=== PATIENT | male | born 1940 | race Caucasian/White ===

== ENCOUNTER 2016-10-12 11:04 | Outpatient (CLI) | payer MEDICARE | END 2016-10-12 11:05 | disposition home or self-care (01) | DX: I10 Essential (primary) hypertension (principal); E78.5 Hyperlipidemia, unspecified; I25.10 Atherosclerotic heart disease of native coronary artery without angina pectoris ==

== ENCOUNTER 2017-01-08 12:10 | Outpatient (CLI) | payer MEDICARE | END 2017-01-08 12:11 | disposition home or self-care (01) | DX: M17.0 Bilateral primary osteoarthritis of knee (principal) ==

== ENCOUNTER 2017-06-13 16:53 | Emergency (ER) | payer MEDICARE ==
--- NOTE | 2017-06-13 19:10 | ED Physician Documentation ---
PD HPI LOWER EXT INJURY - Stated complaint Stated Complaint: LT FOOT SWELLING/REDNESS - Chief complaint Chief Complaint: Wound - History obtained from History obtained from: Patient - History of Present Illness PD HPI LOW EXT INJURY LOCATION: Left, Toe (middle toe swelling and redness for a week or so.) Type of injury: Other (he has had thick skin/callous in the area and had it trimmed recently (callous cut back by [employer]) and then developed redness and swelling. No drainage.). No: Fall, Twist Timing - onset: How many weeks ago (1) Timing - duration: Weeks (1) Timing - details: Gradual onset, Still present (seen last week for the redness/ swelling and was Rx Clindamycin. He has not noted any improvement in the toe and today notes it more red and swollen. Has some baseline numbness in toes due to neuropathy.) Worsened by: Palpating Associated symptoms: Numbness (baseline due to neuropathy), Swelling, Discolored (red). No: Weakness Similar symptoms before: Diagnosis (has had some mild infections in the past and usually gets better with soaks and ointment.) Recently seen: Clinic (today seen in follow up and referred to ER.) Review of Systems Constitutional: denies: Fever, Chills GI: denies: Nausea, Vomiting Neurologic: denies: Generalized weakness, Near syncope PD PAST MEDICAL HISTORY - Past Medical History Past Medical History: Yes Respiratory: COPD Neuro: Peripheral neuropathy Endocrine/Autoimmune: Type 2 diabetes - Past Surgical History Past Surgical History: Yes Ortho: Carpal Tunnel surgery HEENT: Cataracts - Present Medications Home Medications: Ambulatory Orders Medication Instructions Recorded Confirmed Allopurinol [Zyloprim] 300 mg PO DAILY 03/09/16 06/13/17 Atenolol 12.5 mg PO DAILY 03/09/16 06/13/17 Cholecalciferol [Vitamin D3] 4,600 unit PO DAILY 03/09/16 06/13/17 Gabapentin 300 mg PO DAILY 03/09/16 06/13/17 Ibuprofen 400 mg PO DAILY 03/09/16 06/13/17 Insulin Aspart [NovoLOG] 5 unit SUBQ DAILYWM PRN 03/09/16 06/13/17 Lisinopril [Zestril] 20 mg PO DAILY 03/09/16 06/13/17 hydroCHLOROthiazide [Hydrodiuril] 25 mg PO DAILY 03/09/16 06/13/17 Doxycycline Hyclate 100 mg PO BID #14 tablet 06/13/17 Mupirocin 1 applic TP TID #15 oint...g. 06/13/17 - Allergies Allergies/Adverse Reactions: Allergies Allergy/AdvReac Type Severity Reaction Status Date / Time Sulfa (Sulfonamide Allergy Anaphylaxis Verified 06/13/17 17:10 Antibiotics) - Social History Does the pt smoke?: Yes Smoking Status: Current every day smoker Does the pt drink ETOH?: No Does the pt have substance abuse?: Yes Substance Use and Type: Marijuana - Immunizations Immunizations are current?: Yes - POLST Patient has POLST: No PD ED PE NORMAL - Vitals Vital signs reviewed: Yes - General General: Alert and oriented X 3, No acute distress, Well developed/nourished - Neck Neck: Supple, no meningeal sign, No adenopathy - Cardiac Cardiac: RRR, No murmur - Respiratory Respiratory: Clear bilaterally - Derm Derm: Normal color, Warm and dry - Extremities Extremities: Other (left foot with redness and swelling of middle toe, with superficial ulderation dorsum. No active drainage. No fluctuance. There is callous thickening plantar tip. No noted fluid under it. Bedside U/S attempted for toe and did not show obvious fluid collection.) Results - Vitals Vitals: Vital Signs - 24 hr 06/13/17 06/13/17 17:05 19:34 Temperature 36.7 C 36.9 C Heart Rate 90 77 Respiratory 20 18 Rate Blood Pressure 122/60 120/67 O2 Saturation 97 96 Oxygen O2 Source Room air - Labs Labs: Laboratory Tests 06/13/17 18:47 POC Whole Bld Glucose 151 H - Rads (name of study) toes Radiology: Prelim report reviewed, EMP read contemporaneously (no acute process noted. ) PD MEDICAL DECISION MAKING - ED course Complexity details: reviewed results, considered differential (scalpel tip used at nailbed corner and no fluid produced. Bedside U/S did not show obvious fluid in toe. No obvious abscess. Has been on Clinda without improvement. Will have him do soaks, topical mupirocin, and change to Doxycycline. He does not seem septic. ), d/w patient Departure - Departure Disposition: 01 Home, Self Care Clinical Impression: Toe infection Condition: Stable Record reviewed to determine appropriate education?: Yes Instructions: ED Staph Infec Abx Tx Only Follow-Up: Neeta Almonte ARNP [Primary Care Provider] - Prescriptions: Doxycycline Hyclate 100 mg PO BID #14 tablet Mupirocin 1 applic TP TID #15 oint...g. Comments: Soak foot/toe in warm water 2-3 times daily then apply mupirocin antibiotic. Stop the Clindamycin and change to Doxycycline twice daily for a week. Recheck with PMD in about 3-4 days. Discharge Date/Time: 06/13/17 20:17
[2017-06-13 19:35] VITALS: BP 120/67
[2017-06-13] MEDS ORDERED: MUPIROCIN 2% OINT 1 GM TOP STA (19:59)
[2017-06-13] MEDS ORDERED: DOXYCYCLINE 100 MG TABLET PO STA (19:59)
--- NOTE | 2017-06-13 20:03 | XRAY Preliminary Report ---
Exam: XR Foot 3 View RT IMPRESSION: Soft tissue swelling. [facility] SITE ID: [id number]
--- NOTE | 2017-06-13 20:06 | XRAY Report ---
EXAM: RIGHT FOOT RADIOGRAPHY EXAM DATE: 06/13/2017 07:18 PM. CLINICAL HISTORY: R 2nd toe infection, poss. FB?. COMPARISON: None. TECHNIQUE: 3 views. FINDINGS: Bones: Moderate plantar and posterior calcaneal spurs. No definite fracture or other bone lesion. Joints: Normal. No subluxations. Soft Tissues: Soft tissue swelling. No definite foreign body or soft tissue gas. IMPRESSION: Soft tissue swelling. [facility] Referring Provider Line: [phone] SITE ID: [id number]
[2017-06-13] MEDS ORDERED: DOXYCYCLINE 100 MG TABLET PO ONE (20:10)
[2017-06-13] MEDS ORDERED: MUPIROCIN 2% OINT 1 GM ONE (20:10)
== END 2017-06-13 20:17 | disposition home or self-care (01) ==
LOC: ED 16:53
DX: L08.89 Other specified local infections of the skin and subcutaneous tissue (principal); E11.42 Type 2 diabetes mellitus with diabetic polyneuropathy; F17.200 Nicotine dependence, unspecified, uncomplicated
CPT/HCPCS: 73630; 99283; 99284; A9270

== ENCOUNTER 2017-07-02 11:13 | Outpatient (CLI) | payer MEDICARE | END 2017-07-02 11:14 | disposition home or self-care (01) | LOC: DI 11:13 | PROVIDERS: ATTEND Internal Medicine Cardiovascular Disease | DX: I35.0 Nonrheumatic aortic (valve) stenosis (principal); I35.1 Nonrheumatic aortic (valve) insufficiency; I77.810 Thoracic aortic ectasia | CPT/HCPCS: 93306 ==

== ENCOUNTER 2017-08-18 19:10 | Emergency (ER) | payer MEDICARE ==
--- NOTE | 2017-08-18 20:56 | ED Physician Documentation ---
PD HPI SKIN - Stated complaint Stated Complaint: FEVER/GOUT FLARE - Chief complaint Chief Complaint: General - History obtained from History obtained from: Patient - History of Present Illness Timing - onset: Today Timing - duration: Days (1) Timing - details: Abrupt onset, Still present (he noted onset of right foot pain today, worsening into evening. He says it feels similar to prior gout episodes. He did also feel feverish earlier today and took temp at home of 101 degrees. Denies URI symptoms. Did have some urgency with urination the past couple of days. No rash nor sores.) Location: RLE (right foot pain, but also right lower leg redness with some swelling that is more than usual basseline swelling.) Quality / character: Painful, Discolored (red), Swelling Associated symptoms: Fever (today), Myalgias, Joint pain (right dorsum foot) Contributing factors: No: Recent illness Similar symptoms before: Diagnosis (the foot pain is typical of his gout, per patient. Has not had the right leg redness previously.) Recently seen: Not recently seen Review of Systems Constitutional: reports: Fever. denies: Chills Nose: reports: Congestion (long chronic nasal congestion from allergies). denies: Rhinorrhea / runny nose Throat: denies: Sore throat Cardiac: denies: Chest pain / pressure Respiratory: denies: Dyspnea, Cough, Wheezing GI: denies: Nausea, Vomiting : reports: Hesitancy (just the past week). denies: Dysuria, Frequency Skin: reports: Rash (redness with warmth on dorsum right foot). denies: Lesions Musculoskeletal: reports: Extremity swelling (chronic edema both lower legs and ankles.) PD PAST MEDICAL HISTORY - Past Medical History Cardiovascular: Hypertension, Other Respiratory: COPD Neuro: Peripheral neuropathy Endocrine/Autoimmune: Type 2 diabetes GI: None : None Psych: None Musculoskeletal: Osteoarthritis, Gout, Chronic back pain - Past Surgical History Past Surgical History: Yes General: Other Ortho: Carpal Tunnel surgery Cardiovascular: Cardiac catheterization HEENT: Cataracts - Present Medications Home Medications: Ambulatory Orders Medication Instructions Recorded Confirmed Allopurinol [Zyloprim] 300 mg PO DAILY 03/09/16 08/18/17 Atenolol 12.5 mg PO DAILY 03/09/16 08/18/17 Cholecalciferol [Vitamin D3] 4,600 unit PO DAILY 03/09/16 08/18/17 Gabapentin 300 mg PO DAILY 03/09/16 08/18/17 Ibuprofen 400 mg PO DAILY 03/09/16 08/18/17 Insulin Aspart [NovoLOG] 5 unit SUBQ DAILYWM PRN 03/09/16 08/18/17 Lisinopril [Zestril] 20 mg PO DAILY 03/09/16 08/18/17 hydroCHLOROthiazide [Hydrodiuril] 25 mg PO DAILY 03/09/16 08/18/17 Mupirocin 1 applic TP DAILY 06/29/17 08/18/17 Cephalexin [Keflex] 500 mg PO QID #24 capsule 08/18/17 Ibuprofen [Motrin] 600 mg PO BID #15 tab 08/18/17 Ondansetron Odt [Zofran] 4 mg TL Q6H PRN #15 tablet 08/18/17 Oxycodone HCl/Acetaminophen 1 each PO Q6H PRN #15 tablet 08/18/17 [Percocet 5-325 mg Tablet] - Allergies Allergies/Adverse Reactions: Allergies Allergy/AdvReac Type Severity Reaction Status Date / Time Sulfa (Sulfonamide Allergy Anaphylaxis Verified 08/18/17 19:18 Antibiotics) - Social History Does the pt smoke?: Yes Smoking Status: Former smoker Does the pt drink ETOH?: No Does the pt have substance abuse?: Yes - Family History Family history: reports: Non contributory - Immunizations Immunizations are current?: Yes - POLST Patient has POLST: No PD ED PE NORMAL - Vitals Vital signs reviewed: Yes - General General: Alert and oriented X 3, No acute distress, Well developed/nourished - HEENT HEENT: Pharynx benign - Neck Neck: Supple, no meningeal sign, No adenopathy - Cardiac Cardiac: RRR, No murmur - Respiratory Respiratory: Clear bilaterally - Abdomen Abdomen: Soft, Non tender - Male Male : Deferred - Rectal Rectal: Deferred - Back Back: No CVA TTP, No spinal TTP - Derm Derm: Warm and dry, Other (right anterior lower leg with edema, tenderness, and redness/warmth. No pustules nor ulcerations. No discharge. Right foot dorsolaterally with redness and tenderness, very tender to light touch more c/w gout. Great toe not tender. 2nd toe with bandage and small ulceration and callous to it. No signs of infection there though. ) - Neuro Neuro: Alert and oriented X 3, No motor deficit, Normal speech Results - Vitals Vitals: Vital Signs - 24 hr 08/18/17 08/18/17 08/18/17 19:15 22:48 23:55 Temperature 37.9 C H 37.5 C 37.5 C Heart Rate 84 84 80 Respiratory 18 20 20 Rate Blood Pressure 133/57 H 119/59 L 109/55 L O2 Saturation 100 94 97 Oxygen O2 Source Room air - Labs Labs: Laboratory Tests 08/18/17 08/18/17 08/18/17 21:40 21:40 21:40 WBC 15.9 H RBC 4.32 L Hgb 13.5 L Hct 41.8 L MCV 96.8 H MCH 31.2 H MCHC 32.3 RDW 15.9 H Plt Count 160 MPV 8.3 Neut # 12.8 H Lymph # 2.0 Reynolds # 1.0 Eos # 0.0 Baso # 0.0 Absolute Nucleated RBC 0.00 Nucleated RBC % 0.0 ESR 13 Sodium 135 Potassium 4.0 Chloride 102 Carbon Dioxide 26 Anion Gap 7.0 BUN 39 H Creatinine 1.3 H Estimated GFR (MDRD) 54 L Glucose 122 H Calcium 8.6 Magnesium 1.8 Total Bilirubin 0.8 AST 19 ALT 19 Alkaline Phosphatase 62 Total Protein 7.0 Albumin 3.8 Globulin 3.2 Albumin/Globulin Ratio 1.2 Lipase 34 Urine Color Urine Clarity Urine pH Ur Specific [place] Urine Protein Urine Glucose (UA) Urine Ketones Urine Occult Blood Urine Nitrite Urine Bilirubin Urine Urobilinogen Ur Leukocyte Esterase Ur Microscopic Review Urine Culture Comments 08/18/17 22:00 WBC RBC Hgb Hct MCV MCH MCHC RDW Plt Count MPV Neut # Lymph # [place] # Eos # Baso # Absolute Nucleated RBC Nucleated RBC % ESR Sodium Potassium Chloride Carbon Dioxide Anion Gap BUN Creatinine Estimated GFR (MDRD) Glucose Calcium Magnesium Total Bilirubin AST ALT Alkaline Phosphatase Total Protein Albumin Globulin Albumin/Globulin Ratio Lipase Urine Color YELLOW Urine Clarity CLEAR Urine pH 6.0 Ur Specific [place] 1.020 Urine Protein NEGATIVE Urine Glucose (UA) NEGATIVE Urine Ketones NEGATIVE Urine Occult Blood NEGATIVE Urine Nitrite NEGATIVE Urine Bilirubin NEGATIVE Urine Urobilinogen 0.2 (NORMAL) Ur Leukocyte Esterase NEGATIVE Ur Microscopic Review NOT INDICATED Urine Culture Comments NOT INDICATED PD MEDICAL DECISION MAKING - ED course Complexity details: reviewed results, considered differential (he may be having gout in foot, but his lower leg looks like cellulitis and he has elevated WBC and reported fever earlier. No other obvious source for infection. He does not seem septic. Will try outpatient treatment for it, with caution to him to return if worsening or if not improving within 1-2 days. ), d/w patient Departure - Departure Disposition: 01 Home, Self Care Clinical Impression: Foot pain, right, Cellulitis of lower leg Gout flare Qualifiers: Gout site: ankle Gout etiology: idiopathic Laterality: right Qualified Code(s) : M10.071 - Idiopathic gout, right ankle and foot Condition: Stable Record reviewed to determine appropriate education?: Yes Instructions: ED Infec Skin Cellulitis Follow-Up: Jaida Telles ARNP [Primary Care Provider] - Prescriptions: Cephalexin [Keflex] 500 mg PO QID #24 capsule Ibuprofen [Motrin] 600 mg PO BID #15 tab Ondansetron Odt [Zofran] 4 mg TL Q6H PRN #15 tablet PRN Reason: Nausea / Vomiting Oxycodone HCl/Acetaminophen [Percocet 5-325 mg Tablet] 1 each PO Q6H PRN #15 tablet PRN Reason: Pain Comments: The foot and ankle pain may likely be a gout flareup. However there is signs of infection on the lower leg skin with the redness and swelling and I presume that associates with your fever earlier and the elevated white count. We will go with antibiotics cephalexin 4 times a day for the next 5 or 6 days for that. Use ibuprofen twice daily and add oxycodone or Tylenol if needed for pains. Ondansetron if needed for nausea. Recheck with your primary care in 2-3 days return sooner if worsening symptoms. Discharge Date/Time: 08/18/17 23:58
[2017-08-18] MEDS ORDERED: HYDROcod/ACETAM 5/325 MG TABLET PO STA (21:23)
[2017-08-18] MEDS ORDERED: HYDROcod/ACETAM 5/325 MG TABLET ONE (21:34)
[2017-08-18] MEDS ORDERED: FUROSEMIDE 20 MG TABLET PO STA (21:41)
[2017-08-18 21:51] LABS: BASOPHILS % (AUTO) 0.3 %; EOSINOPHILS % (AUTO) 0.3 %; HCT - HEMATOCRIT 41.8 % (42.0-52.0); HGB - HEMOGLOBIN 13.5 g/dL (14.0-18.0); LYMPHOCYTES % (AUTO) 12.9 %; MEAN CORPUSCULAR HEMOGLOBIN 31.2 pg (27.0-31.0); MEAN CORPUSCULAR HGB CONC 32.3 g/dL (32.0-36.0); MEAN CORPUSCULAR VOLUME 96.8 fL (80.0-94.0); MEAN PLATELET VOLUME 8.3 fL (7.4-11.4); MONOCYTES % (AUTO) 6.2 %; NEUTROPHILS # (AUTO) 12.8 10^3/uL (1.5-6.6); NEUTROPHILS % (AUTO) 80.3 %; RED BLOOD COUNT 4.32 10^6/uL (4.70-6.10); RED CELL DISTRIBUTION WIDTH 15.9 % (12.0-15.0); UNCORRECTED WHITE BLOOD COUNT 15.9 x10^3/uL; WHITE BLOOD COUNT 15.9 x10^3/uL (4.8-10.8)
[2017-08-18] MEDS ORDERED: FUROSEMIDE 20 MG TABLET ONE (21:54)
[2017-08-18 22:03] LABS: ALBUMIN/GLOBULIN RATIO 1.2 (1.0-2.2); BILIRUBIN,TOTAL 0.8 mg/dL (0.2-1.0); CALCIUM 8.6 mg/dL (8.5-10.3); CREATININE 1.3 mg/dL (0.6-1.2); MAGNESIUM 1.8 mg/dL (1.7-2.8)
[2017-08-18 22:12] LABS: BILIRUBIN,URINE NEGATIVE (NEGATIVE)
[2017-08-18 22:14] LABS: UA CHARGE (STRIP ONLY) YES; UR CULTURE IF IND NOT INDICATED
[2017-08-18] MEDS ORDERED: cefTRIAXone 1 GM VIAL IM STA (22:14)
[2017-08-18] MEDS ORDERED: cefTRIAXone 1 GM VIAL ONE (22:41)
[2017-08-18] MEDS ORDERED: LIDOCAINE 1% 2 ML VIAL ONE (22:41)
[2017-08-18] MEDS ORDERED: ONDANSETRON ODT 4 MG TABLET TL STA (22:56)
[2017-08-18] MEDS ORDERED: oxyCODONE/ACET 5/325 Prepack 4 PO STA (22:56)
[2017-08-18] MEDS ORDERED: NAPROXEN 250 MG TABLET PO STA (22:56)
[2017-08-18] MEDS ORDERED: NAPROXEN 250 MG TABLET PO ONE (23:29)
[2017-08-18] MEDS ORDERED: ONDANSETRON ODT 4 MG TABLET ONE (23:29)
[2017-08-18] MEDS ORDERED: oxyCODONE/ACET 5/325 Prepack 4 PO ONE (23:30)
[2017-08-18 23:59] VITALS: BP 109/55
== END 2017-08-18 23:58 | disposition home or self-care (01) ==
LOC: ED 19:10
DX: L03.115 Cellulitis of right lower limb (principal); M10.071 Idiopathic gout, right ankle and foot; I10 Essential (primary) hypertension; J44.9 Chronic obstructive pulmonary disease, unspecified; E11.42 Type 2 diabetes mellitus with diabetic polyneuropathy; Z79.4 Long term (current) use of insulin; M19.90 Unspecified osteoarthritis, unspecified site; Z87.891 Personal history of nicotine dependence
CPT/HCPCS: 36415; 80053; 81003; 83690; 83735; 85025; 85651; 87040; 96372; 99283; A9270; Q0162; 81001; 87086

== ENCOUNTER 2017-11-27 08:00 | Outpatient (CLI) | payer MEDICARE ==
[2017-11-27 17:51] LABS: CALCIUM 9.2 mg/dL (8.5-10.3); CREATININE 1.3 mg/dL (0.6-1.2)
== END 2017-11-27 08:01 | disposition home or self-care (01) ==
LOC: LAB.F 08:00
PROVIDERS: ATTEND Internal Medicine Cardiovascular Disease
DX: I10 Essential (primary) hypertension (principal)
CPT/HCPCS: 36415; 80048

== ENCOUNTER 2017-12-20 08:18 | Outpatient (CLI) | payer MEDICARE ==
[2017-12-20 11:11] LABS: BASOPHILS % (AUTO) 0.3 %; EOSINOPHILS # (AUTO) 0.3 10^3/uL (0.0-0.7); EOSINOPHILS % (AUTO) 4.9 %; HGB - HEMOGLOBIN 13.5 g/dL (14.0-18.0); LYMPHOCYTES # (AUTO) 2.4 10^3/uL (1.5-3.5); LYMPHOCYTES % (AUTO) 34.3 %; MEAN CORPUSCULAR HEMOGLOBIN 32.1 pg (27.0-31.0); MEAN CORPUSCULAR HGB CONC 33.2 g/dL (32.0-36.0); MEAN CORPUSCULAR VOLUME 96.7 fL (80.0-94.0); MEAN PLATELET VOLUME 8.5 fL (7.4-11.4); MONOCYTES # (AUTO) 0.6 10^3/uL (0.0-1.0); MONOCYTES % (AUTO) 8.8 %; NEUTROPHILS # (AUTO) 3.6 10^3/uL (1.5-6.6); NEUTROPHILS % (AUTO) 51.7 %; PLT - PLATELET COUNT 147 10^3/uL (130-450); WHITE BLOOD COUNT 6.9 x10^3/uL (4.8-10.8)
[2017-12-20 11:19] LABS: ALBUMIN 3.6 g/dL (3.2-5.5); ALBUMIN/GLOBULIN RATIO 1.2 (1.0-2.2); BILIRUBIN,TOTAL 0.6 mg/dL (0.2-1.0); CALCIUM 8.7 mg/dL (8.5-10.3); CREATININE 1.1 mg/dL (0.6-1.2); TOTAL PROTEIN 6.6 g/dL (6.7-8.2)
== END 2017-12-20 08:19 | disposition home or self-care (01) ==
LOC: LAB.F 08:18
PROVIDERS: ATTEND Internal Medicine
DX: R06.00 Dyspnea, unspecified (principal); K76.0 Fatty (change of) liver, not elsewhere classified; I10 Essential (primary) hypertension; E78.5 Hyperlipidemia, unspecified; M10.9 Gout, unspecified; G62.9 Polyneuropathy, unspecified
CPT/HCPCS: 36415; 80053; 83880; 85025

== ENCOUNTER 2018-10-28 11:29 | Emergency (ER) | payer MEDICARE ==
--- NOTE | 2018-10-28 11:56 | ED Physician Documentation ---
PD HPI SYNCOPE - Stated complaint Stated Complaint: SYNCOPE - Chief complaint Chief Complaint: Neuro - History obtained from History obtained from: Patient, EMS - History of Present Illness Witnessed: Unwitnessed Timing - onset: Today Duration: Unknown Preceding symptoms: Vision changes Contributing factors: Exertion Injury occurred: None Similar symptoms before: No diagnosis Recently seen: Clinic - Additional information Additional information: 78-year-old male with a history of aortic stenosis and diabetes has had a syncopal episode today after sweeping the snow off of his deck. He states that he went out swept the snow off of his deck, went back inside at that point was not feeling ill. Then he is had some dizzy episodes followed by a syncopal episode after dimming of his vision. He states that he has had these episodes when he is just sitting not exerting himself where he will blank out for a while and he is not able to talk. He thinks this may be going on for the past month. He does indicate a history of some claudication which is been progressing over the past 2 years. He has a history of aortic stenosis and on his last visit Dr. Spann indicated to him that it would be assumed that he would need to have work done on this soon. Review of Systems Constitutional: reports: Fatigue. denies: Fever, Chills, Myalgias Eyes: denies: Decreased vision Ears: denies: Ear pain Nose: denies: Rhinorrhea / runny nose, Congestion Throat: denies: Sore throat Cardiac: denies: Chest pain / pressure, Palpitations Respiratory: reports: Dyspnea. denies: Cough GI: denies: Abdominal Pain, Nausea, Vomiting, Constipation, Diarrhea : denies: Dysuria, Frequency Skin: denies: Rash Musculoskeletal: reports: Extremity pain, Extremity swelling. denies: Neck pain, Back pain Neurologic: reports: Generalized weakness. denies: Focal weakness, Numbness PD PAST MEDICAL HISTORY - Past Medical History Cardiovascular: Hypertension, Other Respiratory: COPD Endocrine/Autoimmune: Type 2 diabetes GI: None : None HEENT: Chronic hearing loss Psych: None Musculoskeletal: Osteoarthritis, Gout, Chronic back pain - Past Surgical History Past Surgical History: Yes General: Other Ortho: Carpal Tunnel surgery Cardiovascular: Cardiac catheterization HEENT: Cataracts - Present Medications Home Medications: Ambulatory Orders Medication Instructions Recorded Confirmed Allopurinol [Zyloprim] 300 mg PO DAILY 03/09/16 10/28/18 Cholecalciferol [Vitamin D3] 4,000 unit PO DAILY 03/09/16 10/28/18 Insulin Aspart [NovoLOG] 5 unit SUBQ DAILYWM PRN 03/09/16 02/19/18 Lisinopril [Zestril] 20 mg PO DAILY 03/09/16 10/28/18 RX: Atenolol 2.5 mg PO DAILY 03/09/16 10/28/18 RX: Gabapentin 300 mg PO DAILY 03/09/16 10/28/18 hydroCHLOROthiazide [Hydrodiuril] 25 mg PO DAILY 03/09/16 10/28/18 Oxycodone HCl/Acetaminophen 1 each PO Q6H PRN #15 tablet 08/18/17 02/19/18 [Percocet 5-325 mg Tablet] RX: Ibuprofen [Motrin] 600 mg PO BID #15 tab 08/18/17 10/28/18 RX: Atorvastatin Calcium 40 mg ORAL DAILY 10/28/18 10/28/18 RX: Melatonin 3 mg ORAL 10/28/18 RX: Omeprazole 20 mg ORAL TID 10/28/18 10/28/18 - Allergies Allergies/Adverse Reactions: Allergies Allergy/AdvReac Type Severity Reaction Status Date / Time Sulfa (Sulfonamide Allergy Anaphylaxis Verified 10/28/18 12:09 Antibiotics) - Social History Does the pt smoke?: Yes Smoking Status: Former smoker Does the pt drink ETOH?: No Does the pt have substance abuse?: Yes - Immunizations Immunizations are current?: Yes - POLST Patient has POLST: No PD ED PE NORMAL - Vitals Vital signs reviewed: Yes (hypertensive ) - General General: Alert and oriented X 3, No acute distress, Well developed/nourished, Other (pale appearing male with episodic profound bradycardia. ) - HEENT HEENT: Atraumatic, PERRL, EOMI - Neck Neck: Supple, no meningeal sign - Cardiac Cardiac: Other (irregularly irregular rate and rhythm with 2/6 holosystolic murmer at LSB. ) - Respiratory Respiratory: No respiratory distress, Clear bilaterally - Abdomen Abdomen: Soft, Non tender - Back Back: No CVA TTP, No spinal TTP - Derm Derm: Normal color, Warm and dry, No rash - Extremities Extremities: No deformity, Other (brauwny edema bilaterally ) - Neuro Neuro: Alert and oriented X 3, deliverer outside 2-12 intact, No motor deficit, No sensory deficit Eye Opening: Spontaneous Motor: Obeys Commands Verbal: Oriented GCS Score: 15 - Psych Psych: Normal mood, Normal affect Results - Vitals Vitals: Vital Signs - 24 hr 10/28/18 10/28/18 10/28/18 11:31 12:44 13:42 Temperature 35.9 C L Heart Rate 79 79 85 Respiratory 15 18 18 Rate Blood Pressure 146/74 H 112/65 130/67 O2 Saturation 98 95 99 Oxygen O2 Source Room air - EKG (time done) 1139 Rate: Rate (enter#) (7) Rhythm: Atrial fibrillation Other comments: Other comments (This tracing is illustration of profound bradycardia with symptoms for this patient. rate is about 6. ) Compare to prior EKG: Old EKG unavailable Computer interpretation: Disagree with computer 1140 Rate: Rate (enter#) (73) Rhythm: Atrial flutter Ischemia: Non specific changes Compare to prior EKG: Changed from prior EKG (SPT earlier today there is a heart rate now) Computer interpretation: Agree with computer - Labs Labs: Laboratory Tests 10/28/18 10/28/18 10/28/18 12:13 12:13 12:13 WBC 9.1 RBC 4.29 L Hgb 13.9 L Hct 41.2 L MCV 96.0 H MCH 32.3 H MCHC 33.7 RDW 15.6 H Plt Count 147 MPV 8.1 Neut # (Auto) 5.5 Lymph # (Auto) 2.6 [place] # (Auto) 0.7 Eos # (Auto) 0.3 Baso # (Auto) 0.0 Absolute Nucleated RBC 0.00 Nucleated RBC % 0.0 Sodium 136 Potassium 4.4 Chloride 103 Carbon Dioxide 24 Anion Gap 9.0 BUN 44 H Creatinine 1.3 H Estimated GFR (MDRD) 53 L Glucose 109 H Calcium 8.7 Total Bilirubin 0.7 AST 19 ALT 17 Alkaline Phosphatase 69 Troponin I < 0.04 B-Natriuretic Peptide Total Protein 7.0 Albumin 3.7 Globulin 3.3 Albumin/Globulin Ratio 1.1 Lipase 54 H 10/28/18 12:13 WBC RBC Hgb Hct MCV MCH MCHC RDW Plt Count MPV Neut # (Auto) Lymph # (Auto) [place] # (Auto) Eos # (Auto) Baso # (Auto) Absolute Nucleated RBC Nucleated RBC % Sodium Potassium Chloride Carbon Dioxide Anion Gap BUN Creatinine Estimated GFR (MDRD) Glucose Calcium Total Bilirubin AST ALT Alkaline Phosphatase Troponin I B-Natriuretic Peptide 225 H Total Protein Albumin Globulin Albumin/Globulin Ratio Lipase Procedures - IVC sono (time) 1150 Bedside IVC sono: IVC measures (cm) (1.78), Euvolemia PD MEDICAL DECISION MAKING - ED course Complexity details: reviewed old records, reviewed results, re-evaluated patient, considered differential, d/w patient ED course: 78-year-old male with a history of aortic stenosis has had a syncopal episode today and appears to have sick sinus syndrome. He has complained of symptoms periodically over the last several months of lightheadedness and dizziness today had a horacio syncopal episode. This was following some exertion sweeping off snow and after he had gotten back inside and was at rest when this happened. The patient is followed by Dr. Hill at [facility] in [place] for aortic stenosis and there are no beds available there or at [facility] and we have sought consultation from our friends at [facility] in [place]. In the ED here pacer pads are placed and he is administered IV magnesium. Dr. Jazzy Miles at [facility] in [place] is consulted in the case as a pouncer section gang there, and she recommends administration of dopamine drip to support rate. Dr. Fabio Spear the fee clerk is consulted in the case and he reccomends placement of a central line for transport and will be the accepting physician. A central line is placed by the anesthesiologist for transport. Departure - Departure Disposition: 02 Transfer Acute Care Hosp Clinical Impression: Sick sinus syndrome Syncope Qualifiers: Syncope type: unspecified Qualified Code(s): R55 - Syncope and collapse Aortic stenosis Qualifiers: Cardiac valve disease etiology: etiology unspecified Qualified Code(s): I35.0 - Nonrheumatic aortic (valve) stenosis Condition: Critical Discharge Date/Time: 10/28/18 14:40
[2018-10-28] MEDS ORDERED: MAGNESIUM SULFATE 2 GRAM 2 GM/50 ML BAG IV ONE (11:58)
--- NOTE | 2018-10-28 12:15 | XRAY Report ---
Reason: chest pain Procedure Date: 10/28/2018 Accession Number: [id number] / [id number] Procedure: XR - Chest 1 View X-Ray CPT Code: 40012 FULL RESULT: EXAM: CHEST RADIOGRAPHY EXAM DATE: 10/28/2018 12:07 PM. CLINICAL HISTORY: Chest pain. COMPARISON: 10/29/2010 TECHNIQUE: 1 view. FINDINGS: Lungs/Pleura: No focal opacities evident. No pleural effusion. No pneumothorax. Mediastinum: Heart size accentuated by the AP portable technique. Other: No new finding since 2010. IMPRESSION: No acute findings. [facility]
[2018-10-28 12:21] LABS: BASOPHILS % (AUTO) 0.4 %; EOSINOPHILS # (AUTO) 0.3 10^3/uL (0.0-0.7); EOSINOPHILS % (AUTO) 2.8 %; HGB - HEMOGLOBIN 13.9 g/dL (14.0-18.0); LYMPHOCYTES # (AUTO) 2.6 10^3/uL (1.5-3.5); LYMPHOCYTES % (AUTO) 28.8 %; MEAN CORPUSCULAR HEMOGLOBIN 32.3 pg (27.0-31.0); MEAN CORPUSCULAR HGB CONC 33.7 g/dL (32.0-36.0); MEAN PLATELET VOLUME 8.1 fL (7.4-11.4); MONOCYTES # (AUTO) 0.7 10^3/uL (0.0-1.0); MONOCYTES % (AUTO) 8.2 %; NEUTROPHILS # (AUTO) 5.5 10^3/uL (1.5-6.6); NEUTROPHILS % (AUTO) 59.8 %; PLT - PLATELET COUNT 147 10^3/uL (130-450); RED BLOOD COUNT 4.29 10^6/uL (4.70-6.10); RED CELL DISTRIBUTION WIDTH 15.6 % (12.0-15.0); WHITE BLOOD COUNT 9.1 x10^3/uL (4.8-10.8)
[2018-10-28 12:34] LABS: ALBUMIN 3.7 g/dL (3.2-5.5); ALBUMIN/GLOBULIN RATIO 1.1 (1.0-2.2); BILIRUBIN,TOTAL 0.7 mg/dL (0.2-1.0); CALCIUM 8.7 mg/dL (8.5-10.3); CREATININE 1.3 mg/dL (0.6-1.2)
[2018-10-28] MEDS ORDERED: DOPamine 800 MG/500 ML 800 MG/500 ML BAG IV STA (13:18)
[2018-10-28 13:43] VITALS: BP 130/67
--- NOTE | 2018-10-28 15:20 | XRAY Report ---
Reason: central line placement Procedure Date: 10/28/2018 Accession Number: [id number] / [id number] Procedure: XR - Chest 1 View X-Ray CPT Code: 91945 FULL RESULT: EXAM: CHEST RADIOGRAPHY EXAM DATE: 10/28/2018 02:32 PM. CLINICAL HISTORY: Central line placement. COMPARISON: CHEST 1 VIEW 10/28/2018 11:52 AM. TECHNIQUE: 1 view. FINDINGS: Lungs/Pleura: No focal opacities evident. No pleural effusion. No pneumothorax. Mediastinum: Within exam limitations, the cardiomediastinal contour is normal. Other: There has been interval placement of a right IJ central line with the tip overlying the superior vena cava proximally 4 cm above the expected location of the superior cavoatrial junction. IMPRESSION: 1. New right IJ central line as described above. 2. No evidence of acute cardiopulmonary process. [facility]
== END 2018-10-28 14:40 | disposition short-term general hospital (02) ==
LOC: ED 11:29
DX: I49.5 Sick sinus syndrome (principal); I48.91 Unspecified atrial fibrillation; I48.92 Unspecified atrial flutter; I35.0 Nonrheumatic aortic (valve) stenosis; I10 Essential (primary) hypertension; E11.51 Type 2 diabetes mellitus with diabetic peripheral angiopathy without gangrene; Z79.4 Long term (current) use of insulin; Z87.891 Personal history of nicotine dependence
CPT/HCPCS: 36415; 36556; 71045; 80053; 83690; 83880; 84484; 85025; 93005; 96365; 96375; 99283; 99284

== ENCOUNTER 2019-10-03 11:02 | Outpatient (CLI) | payer MEDICARE ==
--- NOTE | 2019-10-03 13:41 | XRAY Report ---
Reason: FOOT ULCER DUE TO TYPE 2 DIABETES Procedure Date: 10/03/2019 Accession Number: [id number] / [id number] Procedure: XRS - Foot 3 View RT CPT Code: Final Report FULL RESULT: EXAM: RIGHT FOOT RADIOGRAPHY EXAM DATE: 10/03/2019 11:38 AM. CLINICAL HISTORY: FOOT ULCER lateral fifth toe DUE TO TYPE 2 DIABETES. COMPARISON: FOOT 3 VIEW RT 06/13/2017 7:08 PM. TECHNIQUE: 3 views. FINDINGS: Bones: Areas of bony destruction in the fifth digit in the fused middle and distal phalanx, proximal phalanx. Achilles tendon and plantar heel spurs. Joints: Osteophyte talonavicular joint, navicular cuneiform joint. Osteophyte metatarsotarsal joints. No subluxations. Soft Tissues: Soft tissue swelling. IMPRESSION: Bony destruction in the fifth digit fused middle and distal phalanx and proximal phalanx consistent with osteomyelitis [facility]
== END 2019-10-03 11:03 | disposition home or self-care (01) ==
LOC: DI.S 11:02
PROVIDERS: ATTEND Registered Nurse
DX: M89.8X7 Other specified disorders of bone, ankle and foot (principal)

== ENCOUNTER 2019-10-31 13:12 | Outpatient (CLI) | payer MEDICARE | END 2019-10-31 13:13 | disposition home or self-care (01) | LOC: DI 13:12 | PROVIDERS: ATTEND Internal Medicine Cardiovascular Disease | DX: I08.0 Rheumatic disorders of both mitral and aortic valves (principal) | CPT/HCPCS: 93306 ==

== ENCOUNTER 2020-03-10 12:49 | Outpatient (CLI) | payer MEDICARE ==
[2020-03-10 13:18] LABS: BASOPHILS % (AUTO) 0.4 %; EOSINOPHILS # (AUTO) 0.7 10^3/uL (0.0-0.7); EOSINOPHILS % (AUTO) 9.5 %; LYMPHOCYTES # (AUTO) 2.9 10^3/uL (1.5-3.5); LYMPHOCYTES % (AUTO) 40.4 %; MEAN CORPUSCULAR HEMOGLOBIN 31.5 pg (27.0-31.0); MEAN CORPUSCULAR VOLUME 101.9 fL (80.0-94.0); MEAN PLATELET VOLUME 9.2 fL (7.4-11.4); MONOCYTES # (AUTO) 0.7 10^3/uL (0.0-1.0); MONOCYTES % (AUTO) 10.2 %; NEUTROPHILS # (AUTO) 2.8 10^3/uL (1.5-6.6); NEUTROPHILS % (AUTO) 39.4 %; PLT - PLATELET COUNT 177 10^3/uL (130-450); RED BLOOD COUNT 3.17 10^6/uL (4.70-6.10); WHITE BLOOD COUNT 7.2 x10^3/uL (4.8-10.8)
[2020-03-10 13:36] LABS: ALBUMIN 3.4 g/dL (3.2-5.5); ALKALINE PHOSPHATASE 70 IU/L (42-121); ALT ALANINE AMINOTRANSFERASE 14 IU/L (10-60); AST ASPARTATE AMINOTRANSFERASE 16 IU/L (10-42); BILIRUBIN,DIRECT 0.1 mg/dL (0.1-0.5); BILIRUBIN,TOTAL 0.7 mg/dL (0.2-1.0); CHOL/HDL RATIO 2.6 (<5.0); CHOLESTEROL 125 mg/dL; HDL CHOLESTEROL 48 mg/dL; LDL CHOLESTEROL,CALCULATED 64 mg/dL; LDL/HDL RATIO 1.3 (<3.6); TOTAL PROTEIN 6.8 g/dL (6.7-8.2); VLDL CHOLESTEROL 13 mg/dL
== END 2020-03-10 12:50 | disposition home or self-care (01) ==
LOC: LAB 12:49
PROVIDERS: ATTEND Internal Medicine Cardiovascular Disease
DX: E78.49 Other hyperlipidemia (principal); I48.0 Paroxysmal atrial fibrillation
CPT/HCPCS: 36415; 80061; 80076; 83721; 85025

== ENCOUNTER 2020-04-12 09:08 | Outpatient (CLI) | payer MEDICARE | END 2020-04-12 09:09 | disposition short-term general hospital (02) | LOC: EMS 09:08 | PROVIDERS: ATTEND Surgery | DX: R53.1 Weakness (principal); R19.5 Other fecal abnormalities; R79.9 Abnormal finding of blood chemistry, unspecified | CPT/HCPCS: A0425; A0429 ==

== ENCOUNTER 2020-04-20 09:49 | Inpatient (IN) | payer MEDICARE ==
[2020-04-20 10:16] LABS: BASOPHILS % (AUTO) 0.4 %; EOSINOPHILS # (AUTO) 0.5 10^3/uL (0.0-0.7); EOSINOPHILS % (AUTO) 5.3 %; HGB - HEMOGLOBIN 8.6 g/dL (14.0-18.0); LYMPHOCYTES # (AUTO) 2.5 10^3/uL (1.5-3.5); MEAN CORPUSCULAR HEMOGLOBIN 30.7 pg (27.0-31.0); MEAN CORPUSCULAR HGB CONC 30.1 g/dL (32.0-36.0); MEAN CORPUSCULAR VOLUME 102.1 fL (80.0-94.0); MEAN PLATELET VOLUME 9.5 fL (7.4-11.4); MONOCYTES # (AUTO) 1.1 10^3/uL (0.0-1.0); MONOCYTES % (AUTO) 11.9 %; NEUTROPHILS # (AUTO) 5.4 10^3/uL (1.5-6.6); NEUTROPHILS % (AUTO) 55.9 %; PLT - PLATELET COUNT 258 10^3/uL (130-450); RED CELL DISTRIBUTION WIDTH 16.8 % (12.0-15.0); WHITE BLOOD COUNT 9.6 x10^3/uL (4.8-10.8)
--- NOTE | 2020-04-20 10:18 | ED Physician Documentation ---
History of Present Illness - Stated complaint Stated Complaint: SOA - Chief complaint Chief Complaint: Cardiac - History obtained from History obtained from: Patient, Family - History of Present Illness Timing: Today Pain level max: 0 Pain level now: 0 - Additonal information Additional information: 80-year-old male presents to the emergency department stating that he was recently admitted to [facility] in [place] for a GI bleed with anemia. Received a blood transfusion. States he had an endoscopy and colonoscopy with no source of the bleeding found. He was stable and so was discharged home. He has been home about a week. Last night started having difficulty breathing and feeling weak. He is on Xarelto for a pacemaker and severe aortic stenosis. He has been feeling short of breath for the past 24 hours or so. Was seen in the [facility] clinic this morning for wound care and sent here for evaluation. Worse with movement, better with rest. No cough. No fever. Review of Systems Ten Systems: 10 systems reviewed and negative Constitutional: denies: Fever, Chills Cardiac: denies: Chest pain / pressure Respiratory: reports: Dyspnea. denies: Cough, Hemoptysis, Wheezing GI: denies: Abdominal Pain, Nausea, Vomiting, Diarrhea, Hematemesis, Bloody / black stool Skin: denies: Rash Musculoskeletal: denies: Neck pain, Back pain Neurologic: denies: Altered mental status, Headache PD PAST MEDICAL HISTORY - Past Medical History Past Medical History: Yes Cardiovascular: Hypertension, Other Respiratory: COPD Endocrine/Autoimmune: Type 2 diabetes GI: None : None HEENT: Chronic hearing loss Psych: Depression Musculoskeletal: Osteoarthritis, Gout, Chronic back pain - Past Surgical History Past Surgical History: Yes General: Other Ortho: Carpal Tunnel surgery Cardiovascular: Pacemaker, Cardiac catheterization HEENT: Cataracts - Present Medications Home Medications: Ambulatory Orders Medication Instructions Recorded Confirmed Allopurinol [Zyloprim] 300 mg PO DAILY 03/09/16 04/20/20 Gabapentin 300 mg PO DAILY 03/09/16 04/20/20 lisinopriL [Zestril] 2.5 mg PO DAILY 03/09/16 04/20/20 Atorvastatin Calcium 40 mg ORAL DAILY 10/28/18 04/20/20 Omeprazole 20 mg ORAL DAILY PRN 10/28/18 04/20/20 Cholecalciferol (Vitamin D3) 2,000 unit PO DAILY 09/19/19 04/20/20 [Vitamin D3] Pterostillbene 150 mg PO DAILY 09/19/19 04/20/20 Rivaroxaban [Xarelto] 20 mg PO DAILY 09/19/19 04/20/20 Sotalol [Betapace] 80 mg PO BID 09/19/19 04/20/20 Furosemide mg PO 04/20/20 - Allergies Allergies/Adverse Reactions: Allergies Allergy/AdvReac Type Severity Reaction Status Date / Time Sulfa (Sulfonamide Allergy Anaphylaxis Verified 11/20/19 15:54 Antibiotics) - Social History Does the pt smoke?: Yes Smoking Status: Former smoker Does the pt drink ETOH?: No Does the pt have substance abuse?: Yes - Immunizations Immunizations are current?: Yes - POLST Patient has POLST: No PD ED PE NORMAL - Vitals Vital signs reviewed: Yes - General General: Alert and oriented X 3, Other (pale, visibly dyspneic especially with movement.) - HEENT HEENT: Moist mucous membranes - Neck Neck: Supple, no meningeal sign - Cardiac Cardiac: RRR - Respiratory Respiratory: No respiratory distress, Clear bilaterally - Abdomen Abdomen: Soft, Non tender, Non distended - Derm Derm: Warm and dry - Extremities Extremities: Other (1+ pitting edema B) - Neuro Neuro: Alert and oriented X 3 - Psych Psych: Normal mood, Normal affect Results - Vitals Vitals: Vital Signs - 24 hr 04/20/20 04/20/20 04/20/20 10:05 10:14 10:27 Temperature 36.2 C L Heart Rate 72 69 Respiratory 31 H 24 Rate Blood Pressure 154/89 H 137/78 H Blood Pressure 137/78 H [Left] Blood Pressure 154/61 H [Right] O2 Saturation 91 L 99 04/20/20 04/20/20 10:41 11:11 Temperature Heart Rate 68 64 Respiratory 26 H 28 H Rate Blood Pressure 167/92 H 119/68 Blood Pressure [Left] Blood Pressure [Right] O2 Saturation 97 94 Oxygen O2 Source Room air - EKG (time done) 1002 Rate: Rate (enter#) (73) Rhythm: NSR [place]: Normal Intervals: Normal CO QRS: Normal Ischemia: Non specific changes - Labs Labs: Laboratory Tests 04/20/20 04/20/20 04/20/20 09:56 09:56 10:00 WBC RBC Hgb Hct MCV MCH MCHC RDW Plt Count MPV Neut # (Auto) Lymph # (Auto) [place] # (Auto) Eos # (Auto) Baso # (Auto) Absolute Nucleated RBC Nucleated RBC % PT INR APTT Sodium Potassium Chloride Carbon Dioxide Anion Gap BUN Creatinine Estimated GFR (MDRD) Glucose Calcium Total Bilirubin AST ALT Alkaline Phosphatase Troponin I High Sens 20.6 H* B-Natriuretic Peptide 1012 H Total Protein Albumin Globulin Albumin/Globulin Ratio Lipase Blood Type A POSITIVE Antibody Screen NEGATIVE 04/20/20 04/20/20 04/20/20 10:00 10:00 10:00 WBC 9.6 RBC 2.80 L Hgb 8.6 L Hct 28.6 L MCV 102.1 H MCH 30.7 MCHC 30.1 L RDW 16.8 H Plt Count 258 MPV 9.5 Neut # (Auto) 5.4 Lymph # (Auto) 2.5 [place] # (Auto) 1.1 H Eos # (Auto) 0.5 Baso # (Auto) 0.0 Absolute Nucleated RBC 0.00 Nucleated RBC % 0.0 PT 24.4 H INR 2.2 H APTT 34.9 H Sodium 139 Potassium 4.1 Chloride 104 Carbon Dioxide 29 Anion Gap 6.0 BUN 29 H Creatinine 1.3 H Estimated GFR (MDRD) 53 L Glucose 172 H Calcium 8.8 Total Bilirubin 0.4 AST 14 ALT 14 Alkaline Phosphatase 75 Troponin I High Sens B-Natriuretic Peptide Total Protein 6.6 L Albumin 3.3 Globulin 3.3 Albumin/Globulin Ratio 1.0 Lipase 58 H Blood Type Antibody Screen - Rads (name of study) cxr Radiology: Prelim report reviewed, EMP read contemporaneously, See rad report (Pulmonary edema, right greater than left) PD MEDICAL DECISION MAKING - ED course Complexity details: reviewed results, re-evaluated patient, considered differential, d/w patient ED course: 80-year-old male presents to the emergency department with dyspnea starting last night. Recently admitted to [facility] for a blood transfusion. He has been home for about a week. Has had difficulty breathing. His BNP is significantly elevated. His baseline is around 200, now over thousand. Pulmonary edema on chest x-ray. Given IV Lasix and we will place the patient in the hospital for continued diuresis. Discussed the case with Dr. Christensen, hospitalist who accepts This document was made in part using voice recognition software. While efforts are made to proofread this document, sound alike and grammatical errors may occur. Departure - Departure Disposition: 66 [facility] DC/Xfer Clinical Impression: Pulmonary edema Qualifiers: Chronicity: acute Qualified Code(s): J81.0 - Acute pulmonary edema Congestive heart failure Qualifiers: Heart failure type: unspecified Heart failure chronicity: acute on chronic Qualified Code(s): I50.9 - Heart failure, unspecified Aortic stenosis Qualifiers: Cardiac valve disease etiology: etiology unspecified Qualified Code(s): I35.0 - Nonrheumatic aortic (valve) stenosis Condition: Stable
[2020-04-20 10:27] LABS: ALBUMIN 3.3 g/dL (3.2-5.5); BILIRUBIN,TOTAL 0.4 mg/dL (0.2-1.0); CALCIUM 8.8 mg/dL (8.5-10.3); CREATININE 1.3 mg/dL (0.6-1.2); TOTAL PROTEIN 6.6 g/dL (6.7-8.2)
[2020-04-20 10:53] LABS: INR 2.2 (0.8-1.2); PT - PROTHROMBIN TIME 24.4 secs (9.9-12.6)
[2020-04-20 11:00] LABS: PARTIAL THROMBOPLASTIN TIME 34.9 secs (24.9-33.3)
[2020-04-20] MEDS ORDERED: FUROSEMIDE 40 MG/4 ML VIAL IVP STA (11:00)
[2020-04-20] MEDS ORDERED: ONDANSETRON 4 MG/2 ML VIAL IVP PRN (11:42)
[2020-04-20] MEDS ORDERED: ACETAMINOPHEN 325 MG TABLET PO PRN (11:42)
[2020-04-20] MEDS ORDERED: MORPHINE 2 MG/ML CARPUJECT IVP PRN (11:42)
--- NOTE | 2020-04-20 11:55 | XRAY Report ---
PROCEDURE: Chest 1 View X-Ray INDICATIONS: dyspnea TECHNIQUE: One view of the chest was acquired. COMPARISON: Chest x-ray 10/28/2018. FINDINGS: Surgical changes and devices: There is a left chest wall dual-lead pacemaker with leads projecting ov er the right atrium and right ventricle. Lungs and pleura: Confluent airspace opacities are demonstrated in the right lung base with a slight peripheral predominance suggestive of consolidation. Linear left as her opacities are also demonstra mich consistent with atelectasis or consolidation. There is pulmonary edema. Small bilateral pleural e ffusions are demonstrated, right greater than left. No definite pneumothorax. Mediastinum: Mediastinal contours appear unchanged. Heart size is normal. Bones and chest wall: No suspicious bony lesions. Overlying soft tissues appear unremarkable. IMPRESSION: 1. Confluent peripheral opacities in the right base suggestive of consolidation such as from pneumoni a or aspiration. A component of atelectasis may also be present. 2. Linear left basilar opacities are suggestive of atelectasis but may also reflect consolidation or aspiration. 3. Pulmonary edema and small bilateral pleural effusions, right greater than left. Reviewed by: Crow Byrne MD on 04/20/2020 11:53 AM PDT Approved by: Crow Byrne MD on 04/20/2020 11:53 AM PDT Station ID: [id number]
--- NOTE | 2020-04-20 12:52 | PHARMACY PROGRESS NOTE ---
- Best Possible Medication History Admit Date and Time: 04/20/20 1125 Processed by: Pharmacy Medication History completed: Yes Patient Interview: Completed Secondary Source(s): Physician records, Pharmacy records, Insurance records As the person ultimately responsible for medication therapy, providers are able to order a medication from an existing home medication list in [facility] via the "Reconcile Routine" prior to Confirmation of that medication by bilingual patient support caseworker. Such practice is discouraged except when the physician, in their clinical judgment, deems that a medical need exists for a medication without regard to previous use.
--- NOTE | 2020-04-20 12:55 | HISTORY & PHYSICAL EXAMINATION ---
DATE OF SERVICE: 04/20/2020 Physician: Astrid Christensen MD HISTORY OF PRESENT ILLNESS: This is an 80-year-old white male with a history of PVD, aortic stenosis, followed by Dr. Gagnon of Cardiology, history of prior atrial fibrillation/flutter, for which he is now on chronic anticoagulation; history of diabetes, diet controlled, has a chronic diabetic leg ulcer for which he is followed at the [facility] clinic here; has a recent history of GI bleed for which he was hospitalized 1 week ago at [facility] for 2 days. His aspirin was stopped, planned for 10 more days. He was transfused, he had both EGD and colonoscopy, which were negative, according to patient's report. His Xarelto was Okd to be resumed. Patient developed orthopnea for the last 1 day, but has had dyspnea with activity for 2 weeks, worse today. He has been compliant with his meds. He denies other symptoms. Today he had a scheduled appointment in Diabetic Wound Clinic at the [facility], and they noted that he was severely short of breath. He was taken to the ER. In the ER, he desaturated below 90% with any movement, was given IV Lasix with minimal improvement in symptoms. Patient is being admitted for CHF exacerbation in a patient with persistent anemia and severe aortic stenosis. PAST MEDICAL HISTORY 1. Aortic stenosis, severe by Echo done in 10/2019. The LVEF was 70% then with Grade II diastolic dysfunction. There is an upcoming appointment on May 07, to plan aortic valve intervention. 2. PVD. 3. Diabetes, not on medications. 4. Chronic diabetic leg ulcer. 5. History of gout. 6. History of atrial fibrillation/flutter. 7. Recent gastrointestinal bleed, source not identified, pill endoscopy is still being planned. ALLERGIES: SULFA. MEDICATIONS 1. Lasix 20 mg daily. 2. Lisinopril 2.5 mg daily. 3. Omeprazole 20 mg daily p.r.n. GERD. 4. Pterostilbene 150 mg daily. 4. Allopurinol 300 mg daily. 5. Lipitor 40 mg daily. 6. Vitamin D3 at 2000 units daily. 7. Gabapentin 300 mg daily. 8. Xarelto 20 mg daily. 9. Sotalol 80 mg b.i.d. FAMILY HISTORY: No inherited diseases. Cancer runs in the family. SOCIAL HISTORY: Patient is independent, was a former smoker who quit in the . No illicit drug use history or alcohol abuse history. He rarely does smoke marijuana. PAST SURGICAL HISTORY: Carpal tunnel surgery, pacemaker implant 11/11, and past cataract surgery. 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 REVIEW OF SYSTEMS: The patient is hard of hearing. He denies any chest pain. His cardiac catheterization result from 3-5 years ago is not known. He has chronic mild leg swelling and the right leg is in a stocking chronically, changed weekly by the wound nurse at [facility]. A comprehensive review of systems was performed, and the pertinent positives are listed, the rest are negative. PHYSICAL EXAMINATION GENERAL: Elderly white male. He is in no distress at rest, but with any movement, he is dyspneic. VITAL SIGNS: Blood pressure 160/90, heart rate 64 in sinus rhythm. After one dose of iv Lasix the blood pressure decreased to 120/74, respiratory rate is 24- 28, oxygen saturation 94% on room air. HEENT: Unremarkable. NECK: Positive JVD in a vertical position. CHEST: Diminished breath sounds at both bases. HEART: DistantS1 and S2. A honking, harsh 3/6 systolic murmur heard at the base, radiating down. ABDOMEN: Soft, obese. Positive bowel sounds. EXTREMITIES: 1+ pretibial edema. Venous stasis of the shins. There is a stocking on the right lower leg. NEUROLOGIC: Grossly intact. LABORATORY DATA: Normal electrolytes. BUN is 29, creatinine 1.3. His baseline creatinine was 1.3 in Oct 2018. Troponin is 20.6. BNP 1012. Normal liver tests. White blood count 9.6, hemoglobin 8.6 with an MCV of 102 and RDW 16.8, platelet count normal at 258. INR elevated, but this is not reliable on Xarelto. EKG: Normal sinus rhythm, rate of 73 with PACs, LVH voltage with strain pattern. IMAGING Chest x-ray: Pulmonary edema. There is possible atelectasis or consolidation in the right base. There are small bilateral pleural effusions, right greater than left. There is a pacemaker seen in the left chest wall. Heart size is normal. IMPRESSION 1. Pulmonary edema. 2. Congestive heart failure exacerbation, probably acute on chronic diastolic heart failure. 3. Severe aortic stenosis, by Echo done 5 mos ago. 4. CKD, stage 3. 5. Anemia. 6. History of gastrointestinal bleed. 7. Diabetes, diet controlled. 8. Diabetic leg ulcer, chronic. 9. PVD, with iliac artery repair with stent 2 mos ago. 10. History of gout. 11. History of atrial fibrillation/flutter in the past, now on chronic anticoagulation with Xarelto and on Sotalol, which is maintaining sinus rhythm. PLAN 1. Admit patient to a telemetry bed, inpatient status, given his severe aortic stenosis with heart failure exacerbation. Since the Echo was done less than 6 months ago, do not plan on repeating an Echo now, not even a limited Echo to check the ejection fraction since with his severe aortic stenosis, he is not a candidate to get KAN, ARB or Hydralazine plus Nitrates for systolic failure. 2. Begin IV b.i.d. Lasix, follow weight daily, Ins and Outs and electrolytes and magnesium daily. Correct if low. 3. Cycle his troponins and follow BNP daily. Depending on his intake, possible fluid restriction may be required. 4. Continue with his sotalol, but hold the KAN inhibitor given his severe aortic stenosis, since with severe , he has a fixed afterload that the KAN would not help, and because of the elevated creatinine. 5. Continue with his Xarelto. Follow his CBC daily regarding the hemoglobin. Await records/ discharge summary from [facility] to confirm what they found and recommendations. 6. Continue with his daily allopurinol. 7. Continue with a diabetic diet, and insulin sliding scale coverage will be ordered for fingerstick checks. Obtain an A1c to check his control. 8. I explained the plan to the patient, was at bedside and later spoke to the daughter Jacki and answered their questions to their satisfaction. DEEP VENOUS PROPHYLAXIS: Pharmacotherapy. CODE STATUS: FULL CODE. ATTESTATION: Patient is expected to be discharged or transferred to another facility within 96 hours: Yes. cc: RHYS Fontanez TD: 04/20/2020 12:11 ROLF
[2020-04-20] MEDS: INSULIN ASPART 300 UNIT/3 ML PEN SUBQ SCH ×3 (12:59→21:54)
[2020-04-20 13:09] LABS: HB2 TOTAL 8.8 g/dL; HEMOGLOBIN A1C 0.36 g/dL; HEMOGLOBIN A1C % 5.9 % (4.6-6.2)
[2020-04-20] MEDS: RIVAROXABAN 10 MG TABLET PO SCH ×2 (17:26→17:36)
[2020-04-20] MEDS: FUROSEMIDE 40 MG/4 ML VIAL IVP SCH (17:26)
[2020-04-20] MEDS: SODIUM CHLORIDE FLUSH 0.9% 10 ML SYRINGE IVP SCH (17:27)
[2020-04-20] MEDS: ATORVASTATIN 40 MG TABLET PO SCH (21:53)
[2020-04-20] MEDS: FAMOTIDINE 20 MG TABLET PO SCH (21:53)
[2020-04-20] MEDS: SOTALOL 80 MG TABLET PO SCH (21:53)
[2020-04-21] MEDS: SODIUM CHLORIDE FLUSH 0.9% 10 ML SYRINGE IVP SCH ×4 (00:11→23:51)
[2020-04-21] MEDS: SODIUM CHLORIDE FLUSH 0.9% 10 ML SYRINGE IVP PRN ×2 (05:22→14:54)
[2020-04-21] MEDS: FUROSEMIDE 40 MG/4 ML VIAL IVP SCH ×2 (05:23→14:54)
[2020-04-21 05:51] LABS: HGB - HEMOGLOBIN 8.2 g/dL (14.0-18.0); MEAN CORPUSCULAR HEMOGLOBIN 30.7 pg (27.0-31.0); MEAN CORPUSCULAR VOLUME 102.2 fL (80.0-94.0); MEAN PLATELET VOLUME 9.5 fL (7.4-11.4); RED BLOOD COUNT 2.67 10^6/uL (4.70-6.10); RED CELL DISTRIBUTION WIDTH 16.6 % (12.0-15.0); WHITE BLOOD COUNT 8.4 x10^3/uL (4.8-10.8)
[2020-04-21 05:59] LABS: CALCIUM 8.6 mg/dL (8.5-10.3); CREATININE 1.3 mg/dL (0.6-1.2); MAGNESIUM 1.9 mg/dL (1.7-2.8)
[2020-04-21] MEDS: INSULIN ASPART 300 UNIT/3 ML PEN SUBQ SCH ×4 (07:46→21:09)
[2020-04-21] MEDS: SOTALOL 80 MG TABLET PO SCH ×2 (08:31→21:10)
[2020-04-21] MEDS: FAMOTIDINE 20 MG TABLET PO SCH ×2 (08:31→21:10)
[2020-04-21] MEDS: allopurinoL 100 MG TABLET PO SCH (08:31)
[2020-04-21] MEDS: CHOLECALCIFEROL 25 MCG TABLET PO SCH (08:31)
[2020-04-21] MEDS: GABAPENTIN 300 MG CAPSULE PO SCH (08:31)
[2020-04-21] MEDS: PTEROSTILBENE PO SCH (08:32)
[2020-04-21] MEDS ORDERED: RIVAROXABAN 10 MG TABLET PO SCH (09:00)
--- NOTE | 2020-04-21 15:32 | PROVIDER PROGRESS NOTE ---
Assessment/Plan - Problem List (1) Pulmonary edema Qualifiers: Chronicity: acute Qualified Code(s): J81.0 - Acute pulmonary edema Assessment/Plan: Improving clinically and BNP decreasing from 1012 to 949 today. He ruled out for an CT with normal troponins. The likely etiology is his new significant anemia on top of grade II diastolic heart failure, likley from LVH caused by aortic stenosis. Continue IV twice daily Lasix and continue supplemental oxygen, follow I's and O's and daily weight, daily BMP and daily Mg. Follow hemoglobin, transfuse if it goes under 7 or under 8 with worsening symptoms. Continue with his meds for diastolic heart failure (beta-sonja) (2) Anemia due to GI blood loss Assessment/Plan: Despite being (-)5 L in his fluid status in the last 24 hours, the hemoglobin has dropped from 8.6 to 8.2. This is very suspicious that there is ongoing GI blood loss. There was still a pill endoscopy that he needed to undergo at [facility]. As an inpatient, he had EGD and colonoscopy that were negative, I received the [facility] summary and confirmed what he reported. he needs further GI work-up. I have called [place] to arrange for a transfer to higher level of care to continue working up GI blood loss anemia. (3) Acute on chronic diastolic heart failure Assessment/Plan: Continue IV twice daily Lasix and continue supplemental oxygen. Follow hemoglobin, transfuse if it goes under 7 or under 8 with worsening symptoms. Continue with his meds for diastolic heart failure (beta-sonja) KAN inhibitor was stopped, and he is not a candidate for ARB or hydralazine w/ nitrates because of his severe aortic stenosis which gives him a fixed afterload and the KAN, ARB or hydralazine w/ nitrates would not be effective in decreasing afterload. (4) Severe aortic stenosis Assessment/Plan: As per echo in October 2019. There is already a scheduled appointment for planning a TAVR, the appointment is May 07, 2020 (5) CKD stage 3 due to type 2 diabetes mellitus Assessment/Plan: Minimally improved BUN and creatinine since diuretics have been started, this murillo ggests cardiorenal syndrome. Follow BMP daily. (6) Diet-controlled diabetes mellitus Assessment/Plan: Continue with diabetic diet and also insulin coverage if needed (7) Diabetic leg ulcer Assessment/Plan: Appreciate the note placed by back wound nurse. If he is here on a Sunday, they would change the wound dressing again so that he does not have to come in for another appointment on that day (8) Gout Assessment/Plan: Continue on his daily allopurinol dose as at home (9) History of atrial fibrillation Assessment/Plan: He is on Xarelto for anticoagulation. It was okayed to be resumed by the absorption plant operator at the [facility] evaluation. Follow H&H daily, will stop Xarelto if there is further decrease in Hgb (10) PVD (peripheral vascular disease) Assessment/Plan: This patient had been on daily aspirin, it was stopped at the recent hospitalization and [facility] due to the GI bleed. He is supposed to be off aspirin for another 10 days. Continue with his statin. The recent iliac surgery/stenting (done January 2020) will also need to be reviewed when he is transferred to a facility with higher level of care, as a possible source of bleeding. - Current Meds Current Meds: Current Medications Generic Name Dose Route Start Last Admin Trade Name Dolores PRN Reason Stop Dose Admin Allopurinol 300 mg 04/21/20 09:00 04/21/20 08:31 Zyloprim PO 300 mg DAILY KENNEDY Administration Atorvastatin Calcium 40 mg 04/20/20 21:00 04/20/20 21:53 Lipitor PO 40 mg QPM KENNEDY Administration Cholecalciferol 50 mcg 04/21/20 09:00 04/21/20 08:31 Vitamin D3 PO 50 mcg DAILY KENNEDY Administration Famotidine 20 mg 04/20/20 21:00 04/21/20 08:31 Pepcid PO 20 mg BID KENNEDY Administration Furosemide 40 mg 04/20/20 17:00 04/21/20 14:54 Lasix Inj 40 Mg Vial IVP 40 mg BIDDIURETIC KENNEDY Administration Gabapentin 300 mg 04/21/20 09:00 04/21/20 08:31 Neurontin PO 300 mg DAILY KENNEDY Administration Insulin Aspart 1 - 5 unit 04/20/20 12:00 04/21/20 11:37 Novolog SUBQ Not Given 0800,1200,1700,2100 [facility] Protocol Pterostilbene 150 Mg 1 each 04/21/20 09:00 04/21/20 08:32 PO Not Given DAILY KENNEDY Rivaroxaban 20 mg 04/21/20 09:00 04/21/20 08:31 Xarelto PO 20 mg DAILY KENNEDY Administration Sodium Chloride 10 ml 04/20/20 11:42 04/21/20 14:54 Normal Saline Flush 0.9% IVP 10 ml PRN PRN Administration NEEDED PER PROVIDER ORDERS Sodium Chloride 10 ml 04/20/20 17:00 04/21/20 08:31 Normal Saline Flush 0.9% IVP 10 ml 0100,0900,1700 KENNEDY Administration Sotalol HCl 80 mg 04/20/20 21:00 04/21/20 08:31 Betapace PO 80 mg BID KENNEDY Administration - Lab Result Fish Bone Diagrams: 04/21/20 05:10 04/21/20 05:10 - Additional Planning My Orders: My Active Orders 04/20/20 17:00 FUROSEMIDE INJ 40mg VIAL [LASIX INJ 40 mg VIAL] 40 mg IVP BIDDIURETIC Sodium Chloride Flush 0.9% [Normal Saline Flush 0.9%] 10 ml IVP 0100,0900,1700 04/20/20 21:00 Atorvastatin [Lipitor] 40 mg PO QPM Famotidine [Pepcid] 20 mg PO BID Sotalol [Betapace] 80 mg PO BID 04/21/20 09:00 Cholecalciferol [Vitamin D3] 50 mcg PO DAILY Gabapentin [Neurontin] 300 mg PO DAILY Patient Own Med [Patient Own Medication] 1 each PO DAILY Rivaroxaban [Xarelto] 20 mg PO DAILY allopurinoL [Zyloprim] 300 mg PO DAILY 04/22/20 05:00 BMP - BASIC METABOLIC PANEL [CHEM] DAILYLAB BNP - B-NATRIURETIC PEPTIDE [IAI] DAILYLAB CBC W/O DIFF (HEMOGRAM) [HEME] DAILYLAB MAGNESIUM [CHEM] DAILYLAB 04/22/20 08:00 Multivitamin W/Minerals [Theragran M] 1 tab PO DAILYWM 04/23/20 05:00 BMP - BASIC METABOLIC PANEL [CHEM] DAILYLAB BNP - B-NATRIURETIC PEPTIDE [IAI] DAILYLAB CBC W/O DIFF (HEMOGRAM) [HEME] DAILYLAB MAGNESIUM [CHEM] DAILYLAB Subjective - Subjective Patient Reports: Feeling Better, Shortness of Breath (Still short of breath with activity, he is wearing supplemental oxygen todat to walk now.) Objective Vital Signs: Vital Signs - 24 hr 0704/20/20 04/20/20 16:00 19:28 19:40 Temperature 36.3 C L 36.7 C Heart Rate [ 66 77 76 Brachial] Respiratory 22 22 20 Rate Blood Pressure 139/58 H 134/53 H 111/51 L [Left Brachial artery] Blood Pressure [Right Brachial artery] O2 Saturation 93 95 100 04/20/20 04/21/20 04/21/20 21:59 00:20 05:00 Temperature 36.3 C L 36.5 C Heart Rate [ 75 71 65 Brachial] Respiratory 20 20 20 Rate Blood Pressure 129/49 L [Left Brachial artery] Blood Pressure 127/70 121/51 L [Right Brachial artery] O2 Saturation 99 100 04/21/20 04/21/20 04/21/20 07:31 10:59 12:54 Temperature 36.5 C 37.2 C Heart Rate [ 68 67 Brachial] Respiratory 20 19 18 Rate Blood Pressure [Left Brachial artery] Blood Pressure 146/66 H 119/48 L [Right Brachial artery] O2 Saturation 99 93 96 Oxygen O2 Source Nasal cannula I&O (Last 24 Hrs): Intake and Output Totals x24h 04/19/20 04/20/20 04/21/20 23:59 23:59 23:59 Intake Total 535 300 Output Total 3760 4170 Balance -3225 -2350 HEENT: Mucous membr. moist/pink Neck: Supple, No JVD Neuro: Alert, Non Focal Cardiovascular: Regular rate, Other (harsh murmur) Respiratory: Breath sounds nml Abdomen: Soft, Other (Obese with pannus) Extremities: Other (1+ pretibial edema, R leg in stocking) - Results Results: Laboratory Results WBC 8.4 x10^3/uL (4.8-10.8) 04/21/20 05:10 RBC 2.67 10^6/uL (4.70-6.10) L 04/21/20 05:10 Hgb 8.2 g/dL (14.0-18.0) L 04/21/20 05:10 Hct 27.3 % (42.0-52.0) L 04/21/20 05:10 MCV 102.2 fL (80.0-94.0) H 04/21/20 05:10 MCH 30.7 pg (27.0-31.0) 04/21/20 05:10 MCHC 30.0 g/dL (32.0-36.0) L 04/21/20 05:10 RDW 16.6 % (12.0-15.0) H 04/21/20 05:10 Plt Count 246 10^3/uL (130-450) 04/21/20 05:10 MPV 9.5 fL (7.4-11.4) 04/21/20 05:10 Neut # (Auto) 5.4 10^3/uL (1.5-6.6) 04/20/20 10:00 Lymph # (Auto) 2.5 10^3/uL (1.5-3.5) 04/20/20 10:00 Dolores # (Auto) 1.1 10^3/uL (0.0-1.0) H 04/20/20 10:00 Eos # (Auto) 0.5 10^3/uL (0.0-0.7) 04/20/20 10:00 Baso # (Auto) 0.0 10^3/uL (0.0-0.1) 04/20/20 10:00 Absolute Nucleated RBC 0.00 x10^3/uL 04/20/20 10:00 Nucleated RBC % 0.0 /100WBC 04/20/20 10:00 PT 24.4 secs (9.9-12.6) H 04/20/20 10:00 INR 2.2 (0.8-1.2) H 04/20/20 10:00 APTT 34.9 secs (24.9-33.3) H 04/20/20 10:00 Sodium 141 mmol/L (135-145) 04/21/20 05:10 Potassium 4.2 mmol/L (3.5-5.0) 04/21/20 05:10 Chloride 98 mmol/L (101-111) L 04/21/20 05:10 Carbon Dioxide 33 mmol/L (21-32) H 04/21/20 05:10 Anion Gap 10.0 (6-13) 04/21/20 05:10 BUN 28 mg/dL (6-20) H 04/21/20 05:10 Creatinine 1.3 mg/dL (0.6-1.2) H 04/21/20 05:10 Estimated GFR (MDRD) 53 (>89) L 04/21/20 05:10 Glucose 135 mg/dL (70-100) H 04/21/20 05:10 POC Whole Bld Glucose 116 mg/dL (70 - 100) H 04/21/20 11:19 Glycated Hemoglobin 5.9 % (4.6-6.2) 04/20/20 12:20 Estim Average Glucose 123 (70-100) H 04/20/20 12:20 Calcium 8.6 mg/dL (8.5-10.3) 04/21/20 05:10 Magnesium 1.9 mg/dL (1.7-2.8) 04/21/20 05:10 Total Bilirubin 0.4 mg/dL (0.2-1.0) 04/20/20 10:00 AST 14 IU/L (10-42) 04/20/20 10:00 ALT 14 IU/L (10-60) 04/20/20 10:00 Alkaline Phosphatase 75 IU/L (42-121) 04/20/20 10:00 Troponin I High Sens 18.8 ng/L (2.3-19.7) 04/20/20 12:20 B-Natriuretic Peptide 949 pg/mL (5-100) H 04/21/20 05:10 Total Protein 6.6 g/dL (6.7-8.2) L 04/20/20 10:00 Albumin 3.3 g/dL (3.2-5.5) 04/20/20 10:00 Globulin 3.3 g/dL (2.1-4.2) 04/20/20 10:00 Albumin/Globulin Ratio 1.0 (1.0-2.2) 04/20/20 10:00 Lipase 58 U/L (22-51) H 04/20/20 10:00 Stl Occult Blood (IFOB) NEGATIVE (NEGATIVE) 04/21/20 08:25 Blood Type A POSITIVE 04/20/20 10:00 Blood Type Recheck A POSITIVE 04/20/20 12:20 Antibody Screen NEGATIVE 04/20/20 10:00
[2020-04-21] MEDS: ATORVASTATIN 40 MG TABLET PO SCH (21:10)
[2020-04-22 05:04] LABS: HGB - HEMOGLOBIN 7.7 g/dL (14.0-18.0); MEAN CORPUSCULAR HEMOGLOBIN 30.9 pg (27.0-31.0); MEAN CORPUSCULAR HGB CONC 30.7 g/dL (32.0-36.0); MEAN CORPUSCULAR VOLUME 100.8 fL (80.0-94.0); MEAN PLATELET VOLUME 9.3 fL (7.4-11.4); RED BLOOD COUNT 2.49 10^6/uL (4.70-6.10); RED CELL DISTRIBUTION WIDTH 16.5 % (12.0-15.0); WHITE BLOOD COUNT 8.3 x10^3/uL (4.8-10.8)
[2020-04-22 05:10] LABS: CALCIUM 8.8 mg/dL (8.5-10.3); CREATININE 1.5 mg/dL (0.6-1.2); MAGNESIUM 1.9 mg/dL (1.7-2.8)
[2020-04-22] MEDS: FUROSEMIDE 40 MG/4 ML VIAL IVP SCH (05:14)
[2020-04-22] MEDS ORDERED: IPRATROPIUM/ALBUTEROL 3 ML NEB INH PRN (06:43)
[2020-04-22] MEDS ORDERED: MULTIVITAMIN W/MINERALS TABLET PO SCH (08:00)
[2020-04-22] MEDS: FAMOTIDINE 20 MG TABLET PO SCH (08:15)
[2020-04-22] MEDS: CHOLECALCIFEROL 25 MCG TABLET PO SCH (08:15)
[2020-04-22] MEDS: GABAPENTIN 300 MG CAPSULE PO SCH (08:15)
[2020-04-22] MEDS: SOTALOL 80 MG TABLET PO SCH (08:15)
[2020-04-22] MEDS: PTEROSTILBENE PO SCH (08:16)
[2020-04-22] MEDS: SODIUM CHLORIDE FLUSH 0.9% 10 ML SYRINGE IVP SCH (08:16)
[2020-04-22] MEDS: allopurinoL 100 MG TABLET PO SCH (08:16)
[2020-04-22] MEDS: INSULIN ASPART 300 UNIT/3 ML PEN SUBQ SCH ×2 (08:17→11:18)
--- NOTE | 2020-04-22 14:11 | Discharge Plan ---
Discharge Plan Problem Reviewed?: Yes Disposition: 02 Transfer Acute Care Hosp Condition: Stable Additional Instructions or Follow Up instructions: Do COVID test upon arrival to [facility]. No Smoking: If you smoke, Please STOP! Call for help. Follow-up with: Jaida Telles ARNP [Primary Care Provider] -
--- NOTE | 2020-04-22 14:12 | DISCHARGE SUMMARY ---
Discharge Summary Admit Date: 04/20/20 Discharge Date: 04/22/20 Discharging Provider: Dr Astrid Christensen Primary Care Provider: HAWA Telles Code Status: Attempt Resuscitation Condition at Discharge: Stable Discharge Disposition: 02 Transfer Acute Care Hosp Discharge Facility Name: [facility] History of Present Illness: This is an 80 y/o WM wiuth Hx of morbid obesity, diet-controlled DM, chronic diabetic leg ulcer, PVD (S/P iliac artery repair with endovascular stent in 02/10), severe aortic stenosis, Grade II diastolic heart failure, chronic afib, on Xarelto, and history of recent GI bleed, hospitalized at [facility] 1 week ago, where he got blood transfusion, underwent EGD and colonoscopy which found no source of bleeding, aspirin was put on hold but Xarelto was OKd to be resumed. He reports going there with c/o shortness of breath for a week, which has not improved, is now dyspneic for 2 weeks and has new orthopnea, and worsened GUZMAN for which he was told to go to the ER, from his weekly diabetic wound clinic appointment this morning. He had been compliant with all med and diet orders and denied any chest pain. In the ER, he desaturated below 90% on room air with any mobility. Hgb was 8.6. CXR showed pulmonary edema. He was given iv Lasix, and is being admitted for CHF exac erbation with acute on chronic diastolic heart failure in a patient with persistent marked anemia. I reviewed his wishes for Code Status and he wishes to be a Full Code. - HOSPITAL COURSE Hospital Course: (1) Pulmonary edema He was put on Lasix iv b.i.d. The BNP decreased from 1012>> 949>> 811. He ruled out for an [place] with normal troponins. The likely etiology was the new significant anemia on top of grade II diastolic heart failure, from LVH caused by severe aortic stenosis. He was 7L (-) in fluid balance and his med for d iastolic heart failure (beta-sonja) was continued. (2) Anemia due to GI blood loss Despite being 7L (-) in his fluid status, the hemoglobin dropped daily from 8.6>> 8.2>> 7.7. This was felt to be due to ongoing GI blood loss. As a recent inpatient at [facility], he had EGD and colonoscopy that were negative and a pill endoscopy was still planned. A request for transfer was approved by [place], and he was transferred for higher level of care, in stable condition, to continue working up the GI blood loss anemia, at [facility]. (3) Acute on chronic diastolic heart failure He was on IV twice daily Lasix, his B-sonja and supplemental oxygen. The KAN inhibitor was stopped, and he was not put on ARB or Hydralazine w/ nitrates because of his severe aortic stenosis, which gives him a fixed afterload and the KAN, ARB or hydralazine w/ nitrates would not be effective in decreasing afterload. (4) Severe aortic stenosis As per Echo done in October 2019 and there was already a scheduled appointment for planning a TAVR; the appointment is May 07, 2020 (5) CKD stage 3 due to type 2 diabetes mellitus Admission creat was 1.4. There was initial improvement in BUN and creatinine since diuretics were started, suggesting cardiorenal syndrome. At the time of transfer BUN/creat were 33/1.5 (6) Diet-controlled diabetes mellitus The A1c was 5.9, indicating good control on a doabetic diet, which was continued here with sliding scale Regular insulin coverage, if needed (7) Diabetic leg ulcer He follows at the [facility] Wound clinic here every Sun for many months. He was seen by the Wound nurse the morning before admission, his leg was treated and CoFlex 2 layer compression applied, then while an inpatient there were no new recommendations, he was to continue once a week wound and dressing changes. (8) Hx of Gout He was continued on his daily Allopurinol dose as at home. (9) History of atrial fibrillation He was on Xarelto for anticoagulation. It was okayed to be resumed by the optical instrument assembly supervisor at the [facility] in-patient hospitalization 1 week ago. Since the H&H was dropping here daily despite diuresis, we stopped Xarelto. (10) PVD (peripheral vascular disease) This patient had been on daily aspirin, it was stopped at the recent hospitalization and [facility] due to the GI bleed. He was supposed to be off aspirin for another 10 days. He was kept on his statin. The recent iliac surgery/stenting (done January 2020) will also need to be reviewed when he is transferred to a facility with higher level of care, as a possible source of bleeding. - ALLERGIES Allergies/Adverse Reactions: Allergies Allergy/AdvReac Type Severity Reaction Status Date / Time Sulfa (Sulfonamide Allergy Anaphylaxis Verified 11/20/19 15:54 Antibiotics) - MEDICATIONS Home Medications: Ambulatory Orders Medication Instructions Recorded Confirmed Allopurinol [Zyloprim] 300 mg PO DAILY 03/09/16 04/20/20 Gabapentin 300 mg PO DAILY 03/09/16 04/20/20 Omeprazole 20 mg PO DAILY PRN 10/28/18 04/20/20 Cholecalciferol (Vitamin D3) 2,000 unit PO DAILY 09/19/19 04/20/20 [Vitamin D3] Rivaroxaban [Xarelto] 20 mg PO DAILY 09/19/19 04/20/20 Sotalol [Betapace] 80 mg PO BID 09/19/19 04/20/20 Atorvastatin Calcium 80 mg PO QPM 04/20/20 04/20/20 Furosemide 20 mg PO DAILY 04/20/20 04/20/20 Pterostilbene 150 mg PO DAILY 04/20/20 04/20/20 lisinopriL [Lisinopril] 2.5 mg PO DAILY 04/20/20 04/20/20 - PHYSICAL EXAM AT DISCHARGE General Appearance: positive: No acute distress, Alert Eyes Bilateral: positive: Normal inspection, EOMI ENT: positive: ENT inspection nml, No signs of dehydration Neck: positive: Nml inspection, No JVD Respiratory: positive: No respiratory distress, Breath sounds nml Cardiovascular: positive: Irregularly irregular, Systolic murmur (3/6, harsh, at base, radiating to apex.) Abdomen: positive: Non-tender, Other (Obese with a large pannus) Skin: positive: Pallor Extremities: positive: Other (Venous stasis changes bilateral shins, 1+ edema R>L, R lower leg is in a stocking.) - LABS Result Diagrams: 04/22/20 04:40 04/22/20 04:40 - DIAGNOSTIC IMAGING Diagnostic Imaging Results: Final report reviewed - FOLLOW UP Follow Up: This will be determined after his hospitalization at [facility]. - TIME SPENT Time Spent in Discharge (Minutes): 60
[2020-04-22 16:05] VITALS: BP 106/77
== END 2020-04-22 16:10 | disposition short-term general hospital (02) | DRG 291 ==
LOC: ED 09:49 → SUATTDRO 09:49 → MS2 11:25
PROVIDERS: ADMIT Internal Medicine; ATTEND Internal Medicine
DX: I13.0 Hypertensive heart and chronic kidney disease with heart failure and stage 1 through stage 4 chronic kidney disease, or unspecified chronic kidney disease (principal); I50.1 Left ventricular failure, unspecified; I50.33 Acute on chronic diastolic (congestive) heart failure; Z68.41 Body mass index [BMI] 40.0-44.9, adult; I48.20 Chronic atrial fibrillation, unspecified; J44.9 Chronic obstructive pulmonary disease, unspecified; L97.912 Non-pressure chronic ulcer of unspecified part of right lower leg with fat layer exposed; E11.622 Type 2 diabetes mellitus with other skin ulcer; I35.0 Nonrheumatic aortic (valve) stenosis; E66.01 Morbid (severe) obesity due to excess calories; M10.9 Gout, unspecified; E11.22 Type 2 diabetes mellitus with diabetic chronic kidney disease; N18.3 Chronic kidney disease, stage 3 (moderate); D50.0 Iron deficiency anemia secondary to blood loss (chronic); E11.51 Type 2 diabetes mellitus with diabetic peripheral angiopathy without gangrene; H91.90 Unspecified hearing loss, unspecified ear; Z95.0 Presence of cardiac pacemaker; Z79.899 Other long term (current) drug therapy; Z79.01 Long term (current) use of anticoagulants; Z87.891 Personal history of nicotine dependence; Z89.429 Acquired absence of other toe(s), unspecified side; Z95.828 Presence of other vascular implants and grafts; Z87.19 Personal history of other diseases of the digestive system
CPT/HCPCS: 36415; 71045; 80048; 80053; 82274; 82607; 82728; 82746; 83036; 83540; 83690; 83735; 83880; 84466; 84484; 85025; 85027; 85610; 85730; 86850; 86900; 86901; 93005; 94640; 96374; 99284; 99285; A9270; 82272

== ENCOUNTER 2020-04-27 13:41 | Outpatient (CLI) | payer MEDICARE ==
[2020-04-27 14:05] LABS: BASOPHILS % (AUTO) 0.5 %; EOSINOPHILS # (AUTO) 0.6 10^3/uL (0.0-0.7); EOSINOPHILS % (AUTO) 6.5 %; HGB - HEMOGLOBIN 8.4 g/dL (14.0-18.0); LYMPHOCYTES # (AUTO) 2.9 10^3/uL (1.5-3.5); LYMPHOCYTES % (AUTO) 33.7 %; MEAN CORPUSCULAR HEMOGLOBIN 30.8 pg (27.0-31.0); MEAN CORPUSCULAR HGB CONC 30.5 g/dL (32.0-36.0); MEAN CORPUSCULAR VOLUME 100.7 fL (80.0-94.0); MEAN PLATELET VOLUME 9.4 fL (7.4-11.4); MONOCYTES # (AUTO) 0.8 10^3/uL (0.0-1.0); MONOCYTES % (AUTO) 9.3 %; NEUTROPHILS # (AUTO) 4.2 10^3/uL (1.5-6.6); NEUTROPHILS % (AUTO) 49.6 %; PLT - PLATELET COUNT 229 10^3/uL (130-450); RED BLOOD COUNT 2.73 10^6/uL (4.70-6.10); RED CELL DISTRIBUTION WIDTH 17.3 % (12.0-15.0); WHITE BLOOD COUNT 8.5 x10^3/uL (4.8-10.8)
[2020-04-27 14:27] LABS: % IRON SATURATION 21 % (20-50); IRON 64 ug/dL (45-182); TOTAL IRON BINDING CAPACITY 300 ug/dL (250-450); TRANSFERRIN 214 mg/dL (180-329)
== END 2020-04-27 13:42 | disposition home or self-care (01) ==
LOC: LAB 13:41
PROVIDERS: ATTEND Registered Nurse
DX: D64.9 Anemia, unspecified (principal)
CPT/HCPCS: 36415; 83540; 84466; 85025

== ENCOUNTER 2020-05-05 11:15 | Outpatient (CLI) | payer MEDICARE ==
[2020-05-05 11:53] LABS: BASOPHILS % (AUTO) 0.4 %; EOSINOPHILS # (AUTO) 0.5 10^3/uL (0.0-0.7); EOSINOPHILS % (AUTO) 5.9 %; HGB - HEMOGLOBIN 7.2 g/dL (14.0-18.0); LYMPHOCYTES # (AUTO) 2.2 10^3/uL (1.5-3.5); LYMPHOCYTES % (AUTO) 27.3 %; MEAN CORPUSCULAR HEMOGLOBIN 30.8 pg (27.0-31.0); MEAN CORPUSCULAR HGB CONC 29.8 g/dL (32.0-36.0); MEAN CORPUSCULAR VOLUME 103.4 fL (80.0-94.0); MEAN PLATELET VOLUME 9.5 fL (7.4-11.4); MONOCYTES # (AUTO) 0.8 10^3/uL (0.0-1.0); MONOCYTES % (AUTO) 9.8 %; NEUTROPHILS # (AUTO) 4.6 10^3/uL (1.5-6.6); NEUTROPHILS % (AUTO) 56.1 %; PLT - PLATELET COUNT 225 10^3/uL (130-450); RED BLOOD COUNT 2.34 10^6/uL (4.70-6.10); WHITE BLOOD COUNT 8.2 x10^3/uL (4.8-10.8)
== END 2020-05-05 11:16 | disposition home or self-care (01) ==
LOC: LAB 11:15
PROVIDERS: ATTEND Nurse Practitioner Family
DX: D64.9 Anemia, unspecified (principal)
CPT/HCPCS: 36415; 85025

== ENCOUNTER 2020-05-10 12:03 | Observation (INO) | payer MEDICARE ==
--- NOTE | 2020-05-10 12:40 | ED Physician Documentation ---
History of Present Illness - Stated complaint Stated Complaint: SOA - Chief complaint Chief Complaint: Cardiac - History obtained from History obtained from: Patient, Family - History of Present Illness Timing: Chronic Pain level max: 0 Pain level now: 0 - Additonal information Additional information: 80-year-old male presents the emergency department with ongoing shortness of breath. He has been admitted to the hospital several times recently including once here and twice to [place] in [place]. Has severe aortic stenosis, congestive heart failure. He is now on oxygen at home. He is awaiting his aortic valve replacement. He had recurrent anemia, therefore they stopped his Xarelto, he is now just on a baby aspirin daily. No fevers. No chills. No cough. Has been having increasing dyspnea again at home. He called his doctor today who was going to see him this afternoon, but was told to come here instead. Review of Systems Ten Systems: 10 systems reviewed and negative Constitutional: denies: Fever, Chills Respiratory: denies: Cough, Wheezing GI: denies: Nausea, Vomiting, Diarrhea Skin: denies: Rash Musculoskeletal: denies: Neck pain, Back pain Neurologic: denies: Headache PD PAST MEDICAL HISTORY - Past Medical History Cardiovascular: Hypertension, Other Respiratory: COPD Neuro: None Endocrine/Autoimmune: Type 2 diabetes GI: None : None HEENT: Chronic hearing loss Psych: Depression Musculoskeletal: Osteoarthritis, Gout, Chronic back pain Derm: None - Past Surgical History Past Surgical History: Yes General: Other Ortho: Carpal Tunnel surgery Cardiovascular: Pacemaker, Cardiac catheterization HEENT: Cataracts - Present Medications Home Medications: Ambulatory Orders Medication Instructions Recorded Confirmed Allopurinol [Zyloprim] 300 mg PO DAILY 03/09/16 05/10/20 Gabapentin 300 mg PO DAILY PM 03/09/16 05/10/20 Omeprazole 20 mg PO DAILY 10/28/18 05/10/20 Cholecalciferol (Vitamin D3) 800 unit PO DAILY 09/19/19 05/10/20 [Vitamin D3] Sotalol [Betapace] 80 mg PO BID 09/19/19 05/10/20 Atorvastatin Calcium 80 mg PO QPM 04/20/20 05/10/20 Furosemide 20 mg PO DAILY 04/20/20 05/10/20 Acetaminophen 650 mg PO Q4HR PRN 05/10/20 05/10/20 Aspirin 81 mg PO DAILY 05/10/20 05/10/20 Cyanocobalamin (Vitamin B-12) 250 mcg PO DAILY 05/10/20 05/10/20 [Vitamin B-12 (100mcg tab)] Ferrous Sulfate 325 mg PO DAILY 05/10/20 05/10/20 Fluticasone [Flonase] 1 sprays TIFFANIE DAILY PRN 05/10/20 05/10/20 Levalbuterol HCl [Xopenex] 0.63 mg IH Q4HR PRN 05/10/20 05/10/20 - Allergies Allergies/Adverse Reactions: Allergies Allergy/AdvReac Type Severity Reaction Status Date / Time Sulfa (Sulfonamide Allergy Anaphylaxis Verified 05/10/20 12:33 Antibiotics) - Social History Does the pt smoke?: Yes Smoking Status: Former smoker Does the pt drink ETOH?: No Does the pt have substance abuse?: Yes - Immunizations Immunizations are current?: Yes - POLST Patient has POLST: No PD ED PE NORMAL - Vitals Vital signs reviewed: Yes - General General: Alert and oriented X 3, No acute distress - HEENT HEENT: Moist mucous membranes - Neck Neck: Supple, no meningeal sign - Cardiac Cardiac: RRR - Respiratory Respiratory: No respiratory distress, Other (Mild decreased breath sounds bilaterally) - Abdomen Abdomen: Soft, Non tender, Non distended - Derm Derm: Warm and dry - Extremities Extremities: Other (1+ bilateral pitting edema) - Neuro Neuro: Alert and oriented X 3 - Psych Psych: Normal mood, Normal affect Results - Vitals Vitals: Vital Signs - 24 hr 05/10/20 05/10/20 05/10/20 12:10 12:30 13:00 Temperature 37.1 C Heart Rate 100 96 101 H Respiratory 24 22 28 H Rate Blood Pressure 130/75 126/55 L 131/75 H O2 Saturation 98 98 98 05/10/20 05/10/20 14:02 14:45 Temperature Heart Rate 103 H 81 Respiratory 22 23 Rate Blood Pressure 135/72 H 139/70 H O2 Saturation 96 99 Oxygen O2 Source Nasal cannula - EKG (time done) 1212 Rate: Rate (enter#) (95) Rhythm: Atrial fibrillation [place]: Normal QRS: Normal Ischemia: Non specific changes - Labs Labs: Laboratory Tests 05/10/20 05/10/20 05/10/20 13:20 13:20 13:20 WBC 9.6 RBC 2.73 L Hgb 8.5 L Hct 28.2 L MCV 103.3 H MCH 31.1 H MCHC 30.1 L RDW 18.8 H Plt Count 192 MPV 9.2 Neut # (Auto) 6.9 H Lymph # (Auto) 1.4 L [place] # (Auto) 1.0 Eos # (Auto) 0.1 Baso # (Auto) 0.0 Absolute Nucleated RBC 0.00 Nucleated RBC % 0.0 Sodium 137 Potassium 5.0 Chloride 96 L Carbon Dioxide 32 Anion Gap 9.0 BUN 46 H Creatinine 1.6 H Estimated GFR (MDRD) 42 L Glucose 149 H Calcium 9.2 Total Bilirubin 0.8 AST 13 ALT 12 Alkaline Phosphatase 66 Troponin I High Sens 15.4 B-Natriuretic Peptide Total Protein 6.8 Albumin 3.3 Globulin 3.5 Albumin/Globulin Ratio 0.9 L Lipase 52 H 05/10/20 13:20 WBC RBC Hgb Hct MCV MCH MCHC RDW Plt Count MPV Neut # (Auto) Lymph # (Auto) [place] # (Auto) Eos # (Auto) Baso # (Auto) Absolute Nucleated RBC Nucleated RBC % Sodium Potassium Chloride Carbon Dioxide Anion Gap BUN Creatinine Estimated GFR (MDRD) Glucose Calcium Total Bilirubin AST ALT Alkaline Phosphatase Troponin I High Sens B-Natriuretic Peptide 1684 H Total Protein Albumin Globulin Albumin/Globulin Ratio Lipase - Rads (name of study) Chest x-ray Radiology: Prelim report reviewed, EMP read contemporaneously, See rad report (Congestive heart failure exacerbation. ) PD MEDICAL DECISION MAKING - ED course Complexity details: reviewed old records, reviewed results, re-evaluated patient, considered differential, d/w patient, d/w family, d/w inside solar sales consultant ED course: Patient with a CHF exacerbation. Unclear as to why he is on such a low dose of Lasix at home. Given 40 mg of Lasix here. He will need to be further diuresed, he is almost double his baseline BNP. Pulmonary edema on chest x-ray. Discussed the case with Dr. Christensen, hospitalist who accepts. This document was made in part using voice recognition software. While efforts are made to proofread this document, sound alike and grammatical errors may occur. Departure - Departure Disposition: ED Place in Observation Clinical Impression: Hypoxia Congestive heart failure Qualifiers: Heart failure type: unspecified Heart failure chronicity: acute on chronic Qualified Code(s): I50.9 - Heart failure, unspecified Pulmonary edema Qualifiers: Chronicity: acute Qualified Code(s): J81.0 - Acute pulmonary edema Condition: Stable
[2020-05-10] MEDS ORDERED: FUROSEMIDE 40 MG/4 ML VIAL IVP STA (12:44)
--- NOTE | 2020-05-10 13:00 | XRAY Report ---
PROCEDURE: Chest 1 View X-Ray INDICATIONS: Chest Pain TECHNIQUE: One view of the chest was acquired. COMPARISON: 04/20/2020 FINDINGS: Surgical changes and devices: None. Lungs and pleura: Pulmonary edema, bibasilar atelectasis, bilateral pleural effusions. Mediastinum: Mediastinal contours appear normal. Mild cardiomegaly. Bones and chest wall: No suspicious bony lesions. Overlying soft tissues appear unremarkable. IMPRESSION: Congestive heart failure exacerbation. Reviewed by: Jarred Arango MD on 05/10/2020 12:58 PM PDT Approved by: Jarred Arango MD on 05/10/2020 12:58 PM PDT Station ID: [id number]
[2020-05-10 13:23] LABS: BASOPHILS % (AUTO) 0.3 %; EOSINOPHILS # (AUTO) 0.1 10^3/uL (0.0-0.7); EOSINOPHILS % (AUTO) 1.5 %; HGB - HEMOGLOBIN 8.5 g/dL (14.0-18.0); LYMPHOCYTES # (AUTO) 1.4 10^3/uL (1.5-3.5); MEAN CORPUSCULAR HEMOGLOBIN 31.1 pg (27.0-31.0); MEAN CORPUSCULAR HGB CONC 30.1 g/dL (32.0-36.0); MEAN CORPUSCULAR VOLUME 103.3 fL (80.0-94.0); MEAN PLATELET VOLUME 9.2 fL (7.4-11.4); MONOCYTES % (AUTO) 10.4 %; NEUTROPHILS # (AUTO) 6.9 10^3/uL (1.5-6.6); NEUTROPHILS % (AUTO) 72.1 %; PLT - PLATELET COUNT 192 10^3/uL (130-450); RED BLOOD COUNT 2.73 10^6/uL (4.70-6.10); RED CELL DISTRIBUTION WIDTH 18.8 % (12.0-15.0); WHITE BLOOD COUNT 9.6 x10^3/uL (4.8-10.8)
[2020-05-10 13:39] LABS: ALBUMIN 3.3 g/dL (3.2-5.5); ALBUMIN/GLOBULIN RATIO 0.9 (1.0-2.2); BILIRUBIN,TOTAL 0.8 mg/dL (0.2-1.0); CALCIUM 9.2 mg/dL (8.5-10.3); CREATININE 1.6 mg/dL (0.6-1.2); TOTAL PROTEIN 6.8 g/dL (6.7-8.2)
[2020-05-10] MEDS ORDERED: SODIUM CHLORIDE FLUSH 0.9% 10 ML SYRINGE IVP PRN (15:32)
[2020-05-10] MEDS ORDERED: ACETAMINOPHEN 325 MG TABLET PO PRN (15:32)
--- NOTE | 2020-05-10 16:08 | PHARMACY PROGRESS NOTE ---
- Best Possible Medication History Admit Date and Time: 05/10/20 1532 Processed by: Pharmacy Medication History completed: Yes Patient Interview: Completed Secondary Source(s): Spouse/Significant other (PATIENT INTERVIEWED BY CAR TRACER. PATIENT PROVIDED LIST OF MEDICATIONS AND CONFIRMED), Pharmacy records As the person ultimately responsible for medication therapy, providers are able to order a medication from an existing home medication list in [facility] via the "Reconcile Routine" prior to Confirmation of that medication by client support manager. Such practice is discouraged except when the physician, in their clinical judgment, deems that a medical need exists for a medication without regard to previous use.
[2020-05-10] MEDS ORDERED: LEVALBUTEROL 1.25 MG/3 ML NEB INH PRN (16:10)
--- NOTE | 2020-05-10 19:43 | HISTORY & PHYSICAL EXAMINATION ---
Chief Complaint - Chief Complaint Chief Complaint: Shortness of breath History of Present Illness - Admitted From Admitted From:: Home - History Obtained From Records Reviewed: Yes History obtained from: Patient, ER Physician, EMR - History of Present Illness HPI Comment/Other: This is a 80-year-old male with a past medical history significant for heart failure with preserved ejection fraction, severe aortic stenosis, type 2 diabetes mellitus, CKD stage III, anemia who presents today complaining of worsening shortness of breath. He states is been going on now for multiple weeks. He was just discharged from [facility] 2 days ago where he was admitted for about 4 days due to anemia. He has had multiple issues with anemia over the past few months and has had endoscopies that have been unremarkable. He had been on Xarelto due to atrial fibrillation and this was discontinued during his most recent hospitalization due to the ongoing anemia. He still continues to take aspirin. He states that he received a unit of blood and IV iron during this most recent hospitalization. He was also discharged on 3 L of oxygen. He states that since discharge 2 days ago, he has felt progressively short of breath. He has had a nonproductive cough. He has been unable to sleep due to his shortness of breath. He reports chronic lower extremity edema and he is unsure if this is worse than usual. He reports no chest pain. He reports no obvious bleeding since he has been home. Denies any dysuria, urgency, hematuria, fever, chills. He has been taking his medications as prescribed. He is scheduled to follow-up with cardiology later this month for further work-up of his aortic stenosis. In the emergency department, he was found to be tachypneic although he was saturating high 90s on 3 L of oxygen which he was recently prescribed. His BNP was elevated at 1600 compared to his baseline of approximately 800. His chest x-ray is also concerning for pulmonary edema. He was given IV Lasix in the emergency department. Given these findings, medicine was consulted for admission. I did discuss goals of care the patient and he would like to be a full code. History - Past Medical History Cardiovascular: reports: Hypertension, Other Respiratory: reports: COPD Neuro: reports: None Endocrine/Autoimmune: reports: Type 2 diabetes GI: reports: None : reports: None HEENT: reports: Chronic hearing loss Psych: reports: Depression Musculoskeletal: reports: Osteoarthritis, Gout, Chronic back pain Derm: reports: None MRSA Hx?: No - Past Surgical History General: reports: Other Ortho: reports: Carpal Tunnel surgery Cardiovascular: reports: Pacemaker, Cardiac catheterization HEENT: reports: Cataracts - Family & Social History Family History Comment/Other: His father lived into his 80s and his mother into her 90s. He does not recall any cardiac history in the family. Living arrangement: At home Living Situation: With spouse/s.o. Social History Notes: He lives at home with his . He has not smoked in over 40 years. Denies any alcohol use. He has been declining from functional standpoint and now predominately uses a wheelchair to ambulate. - POLST Patient has POLST: No Meds/Allgy - Home Medications Home Medications: Ambulatory Orders Medication Instructions Recorded Confirmed Allopurinol [Zyloprim] 300 mg PO DAILY 03/09/16 05/10/20 Gabapentin 300 mg PO DAILY PM 03/09/16 05/10/20 Omeprazole 20 mg PO DAILY 10/28/18 05/10/20 Cholecalciferol (Vitamin D3) 800 unit PO DAILY 09/19/19 05/10/20 [Vitamin D3] Sotalol [Betapace] 80 mg PO BID 09/19/19 05/10/20 Atorvastatin Calcium 80 mg PO QPM 04/20/20 05/10/20 Furosemide 20 mg PO DAILY 04/20/20 05/10/20 Acetaminophen 650 mg PO Q4HR PRN 05/10/20 05/10/20 Aspirin 81 mg PO DAILY 05/10/20 05/10/20 Cyanocobalamin (Vitamin B-12) 250 mcg PO DAILY 05/10/20 05/10/20 [Vitamin B-12 (100mcg tab)] Ferrous Sulfate 180 mg PO DAILY 05/10/20 05/10/20 Fluticasone [Flonase] 1 sprays TIFFANIE DAILY PRN 05/10/20 05/10/20 Levalbuterol HCl [Xopenex] 0.63 mg IH Q4HR PRN 05/10/20 05/10/20 Melatonin 3 mg PO QPM 05/10/20 05/10/20 Miconazole Nitrate [Zeasorb AF] 2 gm TOP BID PRN 05/10/20 05/10/20 - Allergies Allergies/Adverse Reactions: Allergies Allergy/AdvReac Type Severity Reaction Status Date / Time Sulfa (Sulfonamide Allergy Anaphylaxis Verified 05/10/20 12:33 Antibiotics) Review of Systems - Constitutional Constitutional: reports: Weakness. denies: Fever, Chills - Ears, Nose & Throat Ears, Nose & Throat: reports: Postnasal drainage. denies: Sore throat - Cardiovascular Cariovascular: reports: Edema, Exertional dyspnea, Decr. exercise tolerance. denies: Chest pain - Respiratory Respiratory: reports: Cough, SOB at rest, SOB with exertion - Gastrointestinal Gastrointestinal: denies: Abdominal pain, Bloody stools, Nausea, Vomiting - Genitourinary Genitourinary: denies: Dysuria, Frequency, Urgency, Hematuria - Musculoskeletal Musculoskeletal: denies: Muscle pain, Limited range of motion - Integumentary Integumentary: reports: Lesions. denies: Rash - Neurological Neurological: denies: Focal weakness - Hematologic/Lymphatic Hematologic/Lymphatic: reports: Anemia, Bleeding tendencies - All Other Systems All Other Systems: reports: Reviewed and negative Prior Level of Functionality: He has been declining from a functional standpoint. He was previously ambulating with a walker or cane but since his most recent hospitalization, he has been using a wheelchair to get around.. Exam - Vital Signs Reviewed Vital Signs: Yes Vital Signs: Vital Signs x48h Temp Pulse Pulse Resp BP BP Pulse Ox 05/10/20 18:02 71 05/10/20 16:38 36.3 C L 50 L 20 101/51 L 100 05/10/20 15:51 97 27 H 119/77 99 05/10/20 15:32 80 21 125/77 99 05/10/20 15:20 89 20 125/77 100 05/10/20 14:45 81 23 139/70 H 99 05/10/20 14:02 103 H 22 135/72 H 96 05/10/20 13:00 101 H 28 H 131/75 H 98 05/10/20 12:30 96 22 126/55 L 98 05/10/20 12:10 37.1 C 100 24 130/75 98 - Physical Exam General Appearance: positive: No acute distress, Alert Eyes Bilateral: positive: Normal inspection, Conjunctivae nml ENT: positive: ENT inspection nml Neck: positive: Nml inspection Respiratory: positive: No respiratory distress, Rales (Bilateral crackles noted.), Other (He is not in respiratory distress but he is tachypneic.) Cardiovascular: positive: Irregularly irregular, Systolic murmur. negative: No murmur, Tachycardia, Bradycardia Abdomen: positive: Non-tender, No distention. negative: Tenderness Skin: positive: Warm, Other (Dressing is in place over the right lower extremity) Extremities: positive: Pedal edema (He has about +1 pitting edema in the bilateral lower extremities) Neurologic/Psychiatric: positive: Oriented x3. negative: Disoriented to person, Disoriented to place, Disoriented to time Conclusion/Plan - Problem List (1) Acute on chronic diastolic heart failure Conclusion/Plan: His BNP is elevated at 1600 compared to his baseline of about 800. His x-ray is also consistent pulmonary vascular congestion. We will continue him on IV Lasix 20 mg twice daily. Monitor on telemetry. Check echocardiogram. Daily weights. Strict I's and O's. Fluid restriction. He will need a higher dose of Lasix on discharge. (2) Severe aortic stenosis Conclusion/Plan: He has known severe aortic stenosis with aortic valve area of 0.99. He currently follows with cardiology at the [facility] and is being worked up for TAVR. We will repeat an echocardiogram during this hospitalization. (3) Chronic respiratory failure with hypoxia Conclusion/Plan: He is on 3 L of oxygen at baseline which was recently prescribed likely due to his underlying heart failure. He is currently saturating well on the baseline 3 L of oxygen. (4) History of atrial fibrillation Conclusion/Plan: He is no longer on Xarelto due to anemia. He is currently rate controlled. EKG shows atrial fibrillation. We will continue his sotalol and aspirin. Monitor on telemetry. (5) Anemia Conclusion/Plan: This is been an ongoing problem for him. His hemoglobin today is 8.5. He did recently receive a transfusion as well as IV iron. Xarelto has also recently been discontinued. We will monitor his hemoglobin during his hospitalization. Continue Aspirin. (6) CKD stage 3 due to type 2 diabetes mellitus Conclusion/Plan: Renal function is stable at his baseline. We will continue to monitor his renal function closely as he is being diuresed. (7) Diabetic leg ulcer Conclusion/Plan: Chronic and stable. We will place a wound care consult. (8) Diet-controlled diabetes mellitus Conclusion/Plan: His last A1c was less than 6%. Continue carb controlled diet. (9) PVD (peripheral vascular disease) Conclusion/Plan: Stable. We will continue atorvastatin and aspirin. - Lab Results Lab results reviewed: Yes Fish Bones: 05/10/20 13:20 05/10/20 13:20 - Diagnostic Imaging Results Diagnostic Imaging Results: positive: Final report reviewed - EKG Results EKG Interpreted Independently: Yes EKG Comparison: Changed from prior EKG EKG Findings: His EKG shows atrial fibrillation. This is changed compared to prior EKG as he was previously in a sinus rhythm. Core Measures - Anticipated LOS I expect patient to be DC'd or transferred within 96 hours.: Yes - Issues Hospital Issues and Management Plan: 80-year-old male with severe aortic stenosis and diastolic heart failure presents with dyspnea found to have acute on chronic diastolic heart failure exacerbation. Will place in observation for diuresis..
[2020-05-10] MEDS: SODIUM CHLORIDE FLUSH 0.9% 10 ML SYRINGE IVP SCH (21:40)
[2020-05-10] MEDS: SOTALOL 80 MG TABLET PO SCH (21:40)
[2020-05-10] MEDS: GABAPENTIN 300 MG CAPSULE PO SCH (21:40)
[2020-05-10] MEDS: ATORVASTATIN 40 MG TABLET PO SCH (21:40)
[2020-05-10] MEDS: NYSTATIN POWDER 15 GM TOP SCH (21:41)
[2020-05-11] MEDS: SODIUM CHLORIDE FLUSH 0.9% 10 ML SYRINGE IVP SCH ×3 (00:28→22:34)
[2020-05-11 05:38] LABS: BASOPHILS % (AUTO) 0.4 %; EOSINOPHILS # (AUTO) 0.2 10^3/uL (0.0-0.7); EOSINOPHILS % (AUTO) 2.9 %; HGB - HEMOGLOBIN 8.3 g/dL (14.0-18.0); LYMPHOCYTES # (AUTO) 1.8 10^3/uL (1.5-3.5); LYMPHOCYTES % (AUTO) 21.8 %; MEAN CORPUSCULAR HEMOGLOBIN 30.2 pg (27.0-31.0); MEAN CORPUSCULAR HGB CONC 29.7 g/dL (32.0-36.0); MEAN CORPUSCULAR VOLUME 101.5 fL (80.0-94.0); MEAN PLATELET VOLUME 9.6 fL (7.4-11.4); MONOCYTES # (AUTO) 0.9 10^3/uL (0.0-1.0); MONOCYTES % (AUTO) 10.6 %; NEUTROPHILS # (AUTO) 5.1 10^3/uL (1.5-6.6); NEUTROPHILS % (AUTO) 63.8 %; PLT - PLATELET COUNT 198 10^3/uL (130-450); RED BLOOD COUNT 2.75 10^6/uL (4.70-6.10); RED CELL DISTRIBUTION WIDTH 18.6 % (12.0-15.0)
[2020-05-11 05:49] LABS: CALCIUM 9.1 mg/dL (8.5-10.3); CREATININE 1.4 mg/dL (0.6-1.2)
[2020-05-11] MEDS ORDERED: FUROSEMIDE 40 MG/4 ML VIAL IVP SCH ×2 (06:00)
[2020-05-11] MEDS: PANTOPRAZOLE 40 MG TABLET PO SCH (06:10)
[2020-05-11] MEDS ORDERED: PANTOPRAZOLE 40 MG TABLET PO SCH (07:00)
[2020-05-11] MEDS: allopurinoL 100 MG TABLET PO SCH (08:31)
[2020-05-11] MEDS: FERROUS SULFATE 325 MG TABLET PO SCH (08:31)
[2020-05-11] MEDS: ASPIRIN CHEW 81 MG TABLET PO SCH (08:31)
[2020-05-11] MEDS: SOTALOL 80 MG TABLET PO SCH ×2 (08:32→22:34)
[2020-05-11] MEDS: CYANOCOBALAMIN 500 MCG TABLET PO SCH (08:32)
[2020-05-11] MEDS: INSULIN ASPART 300 UNIT/3 ML PEN SUBQ SCH ×4 (08:32→20:32)
[2020-05-11] MEDS: ENOXAPARIN 40 MG/0.4 ML SYRINGE SUBQ SCH (08:34)
[2020-05-11] MEDS: CHOLECALCIFEROL 400 UNIT TABLET PO SCH (08:34)
[2020-05-11] MEDS: NYSTATIN POWDER 15 GM TOP SCH ×2 (08:35→20:47)
[2020-05-11] MEDS: FUROSEMIDE 40 MG/4 ML VIAL IVP SCH (14:28)
--- NOTE | 2020-05-11 17:21 | CT Report ---
PROCEDURE: Head W/O Stroke Protocol INDICATIONS: Confusion, poss CVA TECHNIQUE: Noncontrast 4.5 mm thick angled axial sections acquired from the foramen magnum to the vertex, with c oronal reformats. For radiation dose reduction, the following was used: automated exposure control, adjustment of mA and/or kV according to patient size. COMPARISON: FINDINGS: Image quality: Excellent. CSF spaces: Basal cisterns are patent. No extra-axial fluid collections. Ventricles are normal in size and shape. Brain: No midline shift. No intracranial masses or hemorrhage. Schaffer-white matter interface is norm al. Skull and face: Calvarium and visualized facial bones are intact, without suspicious lesions. Sinuses: Visualized sinuses and mastoids are clear. IMPRESSION: No evidence acute stroke, hemorrhage, or mass. Above discussed with Cecile, the nurse caring for the patient at the time of dictation on 05.11.20 at 17:21 hours . This study fulfills neurological imaging criteria for inclusion or exclusion of acute stroke therapie s based on available published neurological imaging guidelines. Reviewed by: Jarred Arango MD on 05/11/2020 5:20 PM PDT Approved by: Jarred Arango MD on 05/11/2020 5:20 PM PDT Station ID: [id number]
--- NOTE | 2020-05-11 18:01 | PROVIDER PROGRESS NOTE ---
Assessment/Plan - Problem List (1) Chronic respiratory failure with hypoxia Assessment/Plan: Since being hospitalized at [facility] earlier this month, he has required new home O2. The setting is 3L continuously. Today, as he walked with PT, his O2 sat dropped to 82% on his supplemental O2. He will need a new assessment with an oximetry walk test done here, before [facility], since the order will need to be adjusted to increase the O2 settimg with any exertion. (2) Acute on chronic diastolic heart failure Assessment/Plan: He was discharged from [facility] several days ago and the Lasix dose was either decreased or stopped at that [facility], due to a creat level that cal to 2.1. This is presumably the reason for the current CHF exacerbation, on top of having severe aortic stenosis. A limited 2D only Echo was done today, and it continues to show a preserved LVEF (Doppler has shown Grade II diastolic dysfunction in the recent past), therefore this is acute on chronic diastolic heart failure. He is only 1.5L (-) in fluid balance today. The BNP was elevated at admission (1600, and his baseline is 800's), and cal even higher today (2400). He is not yet adequately diuresed therefore, and needs to stay for another day of iv bid Lasix. Continue 40 mg iv bid, due to CKD. He is on Sotolol (partly B-sonja properties), continue this. (3) Confusion Assessment/Plan: Today the patient and family described how he gets very confused when he is SOB; he needed to sit bolt upright on the night before this admission and was "seeing things". The pt described that last night, while here, he was also not sure if he was coherent when watching TV and getting VS checked, thought it was a "repeating cycle". He cannot remember the events of how he got here yesterday afternoon, today he is aware starting this morning. He takes no sleeping meds or sedatives. The daughter reported that they have documented low O2 sats (on his home finger oximeter), when he is confused. He probably has brain hypoperfusion given the severe or is hypoxic and confused. Will obtain a head CT, to R/O subacute stroke, since his Xarelto has been stopped and he is on ASA for stroke prophylaxis for his paroxysmal Afib. (4) Pacemaker malfunction Assessment/Plan: Today, when he walked in his room, than sat, I was monitoring his VS: his O2 sat dropped but also his palpable pulse was 37 for approx 30 sec, before it was palpable at 70 bpm. Will order a pacemaker check, for poss pacer malfunction. The ER has a device to check [employer] pacemakers, to download the pacer data and send electronically to the company and we will get a FAXed report back. (5) History of atrial fibrillation Assessment/Plan: He was in NSR at the last admission here, is on Sotolol to maintain sinus rhythm. The Xarelto was stopped due to recurrent bleeding. Will have the pacemaker interrogated, which will serve to eval if his Afib burden has increased. (6) Aortic stenosis Qualifiers: Qualified Code(s): I35.0 - Nonrheumatic aortic (valve) stenosis Assessment/Plan: The family described that he is getting worked up for a TAVR and still needs pre-op eval by Pulmonary, by Hematology (especially since he has had recent severe GI bleeding with source not documented by EGD or colonoscopy, and the Xarelto was recently stopped), and by a second opinion CT surgeon, which are all required by [facility]. On 05/07/20, he was to have one of those appointments but was an inpatient at the time. I advised the family to definitely keep the appointments in order to progress quickly to having the TAVR scheduled. (7) Anemia Assessment/Plan: Ane burke is from recent GI blood loss and the Hgb appears to have stabilized, off Xarelto. At the last hospitalization at [facility] several days ago, he required a transfusion again and was give iv Iron (they think) and was started on oral Iron and advised to take aspirin daily and stop Xarelto (for stroke prophylaxis). Follow CBC daily. Will transfuse if he drops below Hgb of 8, due to symptomatic CHF. (8) CKD (chronic kidney disease) Assessment/Plan: His creat at baseline is about 1.2. I suspect his creat may rise when he is volume overloaded (cardio-renal syndrome) OR when he is overdiuresed. Follow BMP daily. (9) Diet-controlled diabetes mellitus Assessment/Plan: Continue carb-controlled diet. Will order fingerstick checks, ss Insulin and hypoglycemia protocol while here. (10) CKD stage 3 due to type 2 diabetes mellitus Assessment/Plan: Shawanda salas creat is about 1.2. Follow BMP daily. (11) Diabetic leg ulcer Assessment/Plan: Chronic, is followed for many mos at [facility] Wound clinic here. It gets rewrapped once a week every Sun (today is ). He will still be here tomorrow for that to be done while he is here. Leg have edema, slowing the wound healing. Will order leg elevation when he is OOIB in chair (which is constant, because he sleeps in his recliner). - Current Meds Current Meds: Current Medications Generic Name Dose Route Start Last Admin Trade Name Freq PRN Reason Stop Dose Admin Allopurinol 300 mg 05/11/20 09:00 05/11/20 08:31 Zyloprim PO 300 mg DAILY KENNEDY Administration Aspirin 81 mg 05/11/20 09:00 05/11/20 08:31 St Nba Aspirin PO 81 mg DAILY KENNEDY Administration Atorvastatin Calcium 80 mg 05/10/20 21:00 05/10/20 21:40 Lipitor PO 80 mg QPM KENNEDY Administration Cholecalciferol 800 unit 05/11/20 09:00 05/11/20 08:34 Vitamin D3 PO 800 unit DAILY KENNEDY Administration Cyanocobalamin 250 mcg 05/11/20 09:00 05/11/20 08:32 Vitamin B-12 PO 250 mcg DAILY KENNEDY Administration Enoxaparin Sodium 40 mg 05/11/20 09:00 05/11/20 08:34 Lovenox SUBQ 40 mg DAILY KENNEDY Administration Ferrous Sulfate 325 mg 05/11/20 09:00 05/11/20 08:31 Feosol PO 325 mg DAILY KENNEDY Administration Furosemide 40 mg 05/11/20 14:00 05/11/20 14:28 Lasix Inj 40 Mg Vial IVP 40 mg BIDDIURETIC KENNEDY Administration Gabapentin 300 mg 05/10/20 21:00 05/10/20 21:40 Neurontin PO 300 mg QPM KENNEDY Administration Insulin Aspart 1 - 5 unit 05/11/20 08:30 05/11/20 17:34 Novolog SUBQ Not Given 0800,1200,1700,2100 [facility] Protocol Nystatin 1 applic 05/10/20 21:00 05/11/20 08:35 Nystop TOP 1 applic BID KENNEDY Administration Pantoprazole Sodium 40 mg 05/11/20 07:00 05/11/20 06:10 Protonix PO 40 mg QDAC KENNEDY Administration Sodium Chloride 10 ml 05/10/20 15:32 05/11/20 14:28 Normal Saline Flush 0.9% IVP 10 ml PRN PRN Administration NEEDED PER PROVIDER ORDERS Sodium Chloride 10 ml 05/10/20 17:00 05/11/20 06:10 Normal Saline Flush 0.9% IVP 10 ml 0100,0900,1700 KENNEDY Administration Sotalol HCl 80 mg 05/10/20 21:00 05/11/20 08:32 Betapace PO 80 mg BID KENNEDY Administration - Lab Result Fish Bone Diagrams: 05/12/20 05:20 05/12/20 05:20 - Additional Planning My Orders: My Active Orders 05/10/20 17:00 Sodium Chloride Flush 0.9% [Normal Saline Flush 0.9%] 10 ml IVP 0100,0900,1700 05/10/20 21:00 Gabapentin [Neurontin] 300 mg PO QPM Sotalol [Betapace] 80 mg PO BID 05/11/20 Evaluate and Treat PT [PT] Routine 05/11/20 07:00 Pantoprazole [Protonix] 40 mg PO QDAC 05/11/20 08:10 Blood Glucose Checks - Eating [RC] 0800,1200,1700,2100 Initiate Hypoglycemia Protocol [RC] .protocol 05/11/20 08:30 Insulin Aspart [NovoLOG] 1 - 5 unit SUBQ 0800,1200,1700,2100 05/11/20 09:00 Aspirin Chewable [St Nba Aspirin] 81 mg PO DAILY Enoxaparin [Lovenox] 40 mg SUBQ DAILY Ferrous Sulfate [Feosol] 325 mg PO DAILY allopurinoL [Zyloprim] 300 mg PO DAILY 05/11/20 14:00 FUROSEMIDE INJ 40mg VIAL [LASIX INJ 40 mg VIAL] 40 mg IVP BIDDIURETIC 05/11/20 15:42 Echo Limited [ECHO] Stat 05/11/20 15:56 Telemetry (24 Hour) [RC] Q4HR 05/11/20 16:41 Orthostatic [Vital Signs - Orthostatic] [RC] QSHIFT 05/12/20 05:00 BMP, RFLX TO IONIZED CA IF [CHEM] DAILYLAB BNP - B-NATRIURETIC PEPTIDE [IAI] DAILYLAB Subjective - Subjective Patient Reports: Other (The patient describes that he had severe confusion last night, was seen looping movies on TV, felt like the same vital signs were being repeated on him time over time and did not know how he arrived in the hospital. He did not want to tell the ER that he was "confused", not wishing new w/u.) Objective Vital Signs: Vital Signs - 24 hr 05/10/20 05/10/20 05/11/20 18:02 21:00 00:07 Temperature 36.8 C 36.3 C L Heart Rate Heart Rate [ Activity] Heart Rate [ 71 88 78 Brachial] Heart Rate [ Sitting] Heart Rate [ Supine] Respiratory 20 22 Rate Blood Pressure [Activity] Blood Pressure 117/59 L 120/54 L [Right Brachial artery] Blood Pressure [Supine] O2 Saturation 97 98 05/11/20 05/11/20 05/11/20 04:14 08:21 11:05 Temperature 36.4 C L 36.6 C Heart Rate 87 Heart Rate [ Activity] Heart Rate [ 74 71 Brachial] Heart Rate [ Sitting] Heart Rate [ Supine] Respiratory 20 20 14 Rate Blood Pressure [Activity] Blood Pressure 112/58 L 120/65 [Right Brachial artery] Blood Pressure [Supine] O2 Saturation 97 95 05/11/20 05/11/20 05/11/20 11:36 13:50 15:51 Temperature 36.6 C 36.7 C Heart Rate Heart Rate [ 76 Activity] Heart Rate [ 76 83 Brachial] Heart Rate [ 69 Sitting] Heart Rate [ 76 Supine] Respiratory 20 20 Rate Blood Pressure 124/68 [Activity] Blood Pressure 116/52 L 111/53 L [Right Brachial artery] Blood Pressure 114/61 [Supine] O2 Saturation 99 98 Oxygen O2 Source Nasal cannula I&O (Last 24 Hrs): Intake and Output Totals x24h 05/09/20 05/10/20 05/11/20 23:59 23:59 23:59 Intake Total 200 1110 Output Total 1415 2775 Balance -1215 -1665 General: Alert, Oriented x3 HEENT: Mucous membr. moist/pink Neck: Supple, No JVD Neuro: Alert, Non Focal Respiratory: No respiratory distress, Other (Diminishe breath ounds at bases (has pleural effusions), no rales.) Abdomen: Soft, Other (Obese with pannus) Extremities: Other (2+ tense edema, bandaged lwg wound on one side) Skin: No rashes (Pale) - Results Results: Laboratory Results WBC 8.0 x10^3/uL (4.8-10.8) 05/11/20 05:25 RBC 2.75 10^6/uL (4.70-6.10) L 05/11/20 05:25 Hgb 8.3 g/dL (14.0-18.0) L 05/11/20 05:25 Hct 27.9 % (42.0-52.0) L 05/11/20 05:25 MCV 101.5 fL (80.0-94.0) H 05/11/20 05:25 MCH 30.2 pg (27.0-31.0) 05/11/20 05:25 MCHC 29.7 g/dL (32.0-36.0) L 05/11/20 05:25 RDW 18.6 % (12.0-15.0) H 05/11/20 05:25 Plt Count 198 10^3/uL (130-450) 05/11/20 05:25 MPV 9.6 fL (7.4-11.4) 05/11/20 05:25 Neut # (Auto) 5.1 10^3/uL (1.5-6.6) 05/11/20 05:25 Lymph # (Auto) 1.8 10^3/uL (1.5-3.5) 05/11/20 05:25 [place] # (Auto) 0.9 10^3/uL (0.0-1.0) 05/11/20 05:25 Eos # (Auto) 0.2 10^3/uL (0.0-0.7) 05/11/20 05:25 Baso # (Auto) 0.0 10^3/uL (0.0-0.1) 05/11/20 05:25 Absolute Nucleated RBC 0.00 x10^3/uL 05/11/20 05:25 Nucleated RBC % 0.0 /100WBC 05/11/20 05:25 Sodium 136 mmol/L (135-145) 05/11/20 05:25 Potassium 4.9 mmol/L (3.5-5.0) 05/11/20 05:25 Chloride 97 mmol/L (101-111) L 05/11/20 05:25 Carbon Dioxide 33 mmol/L (21-32) H 05/11/20 05:25 Anion Gap 6.0 (6-13) 05/11/20 05:25 BUN 48 mg/dL (6-20) H 05/11/20 05:25 Creatinine 1.4 mg/dL (0.6-1.2) H 05/11/20 05:25 Estimated GFR (MDRD) 49 (>89) L 05/11/20 05:25 Glucose 123 mg/dL (70-100) H 05/11/20 05:25 POC Whole Bld Glucose 132 mg/dL (70 - 100) H 05/11/20 16:41 Calcium 9.1 mg/dL (8.5-10.3) 05/11/20 05:25 Total Bilirubin 0.8 mg/dL (0.2-1.0) 05/10/20 13:20 AST 13 IU/L (10-42) 05/10/20 13:20 ALT 12 IU/L (10-60) 05/10/20 13:20 Alkaline Phosphatase 66 IU/L (42-121) 05/10/20 13:20 Troponin I High Sens 15.4 ng/L (2.3-19.7) 05/10/20 13:20 B-Natriuretic Peptide 2401 pg/mL (5-100) H 05/11/20 05:25 Total Protein 6.8 g/dL (6.7-8.2) 05/10/20 13:20 Albumin 3.3 g/dL (3.2-5.5) 05/10/20 13:20 Globulin 3.5 g/dL (2.1-4.2) 05/10/20 13:20 Albumin/Globulin Ratio 0.9 (1.0-2.2) L 05/10/20 13:20 Lipase 52 U/L (22-51) H 05/10/20 13:20
[2020-05-11] MEDS: GABAPENTIN 300 MG CAPSULE PO SCH (20:32)
[2020-05-11] MEDS: ATORVASTATIN 40 MG TABLET PO SCH (20:32)
[2020-05-12 05:46] LABS: BASOPHILS % (AUTO) 0.3 %; EOSINOPHILS # (AUTO) 0.3 10^3/uL (0.0-0.7); EOSINOPHILS % (AUTO) 3.4 %; HGB - HEMOGLOBIN 8.3 g/dL (14.0-18.0); MEAN CORPUSCULAR HEMOGLOBIN 29.7 pg (27.0-31.0); MEAN CORPUSCULAR HGB CONC 29.1 g/dL (32.0-36.0); MEAN CORPUSCULAR VOLUME 102.2 fL (80.0-94.0); MEAN PLATELET VOLUME 9.7 fL (7.4-11.4); MONOCYTES # (AUTO) 0.9 10^3/uL (0.0-1.0); MONOCYTES % (AUTO) 11.8 %; NEUTROPHILS # (AUTO) 4.4 10^3/uL (1.5-6.6); PLT - PLATELET COUNT 197 10^3/uL (130-450); RED BLOOD COUNT 2.79 10^6/uL (4.70-6.10); RED CELL DISTRIBUTION WIDTH 18.7 % (12.0-15.0); WHITE BLOOD COUNT 7.7 x10^3/uL (4.8-10.8)
[2020-05-12 05:57] LABS: BUN - BLOOD UREA NITROGEN 43 mg/dL (6-20); CALCIUM 9.4 mg/dL (8.5-10.3); CARBON DIOXIDE - CO2 34 mmol/L (21-32); CHLORIDE 96 mmol/L (101-111); CREATININE 1.5 mg/dL (0.6-1.2); GLUCOSE 127 mg/dL (70-100); SODIUM 139 mmol/L (135-145)
[2020-05-12] MEDS: FUROSEMIDE 40 MG/4 ML VIAL IVP SCH ×2 (07:53→14:29)
[2020-05-12] MEDS: PANTOPRAZOLE 40 MG TABLET PO SCH (07:53)
[2020-05-12] MEDS: SODIUM CHLORIDE FLUSH 0.9% 10 ML SYRINGE IVP SCH ×2 (07:54→09:18)
[2020-05-12] MEDS: INSULIN ASPART 300 UNIT/3 ML PEN SUBQ SCH ×2 (07:55→12:48)
[2020-05-12] MEDS: CHOLECALCIFEROL 400 UNIT TABLET PO SCH (09:18)
[2020-05-12] MEDS: allopurinoL 100 MG TABLET PO SCH (09:18)
[2020-05-12] MEDS: ENOXAPARIN 40 MG/0.4 ML SYRINGE SUBQ SCH ×2 (09:18→11:16)
[2020-05-12] MEDS: CYANOCOBALAMIN 500 MCG TABLET PO SCH (09:19)
[2020-05-12] MEDS: SOTALOL 80 MG TABLET PO SCH (09:19)
[2020-05-12] MEDS: FERROUS SULFATE 325 MG TABLET PO SCH ×2 (09:19→09:26)
[2020-05-12] MEDS: ASPIRIN CHEW 81 MG TABLET PO SCH (09:19)
--- NOTE | 2020-05-12 12:31 | Discharge Plan ---
Discharge Plan Problem Reviewed?: Yes Diet: Diabetic Activity Restrictions: Activity as Tolerated Shower Restrictions: No Assistance Devices: Walker Weight Bearing: Full Weight No Smoking: If you smoke, Please STOP! Call for help. Disposition: 01 Home, Self Care Condition: Fair Prescriptions: Furosemide 40 - 60 mg PO DAILY #90 tab Instruction Topics: Heart Failure Tracking Weight, Heart Failure Diet Changes Health Concerns: You were here Observation status for treating fluid overload from congestive heart failure, and evaluating the confusion, low blood pressure and low oxygen levels. After you lost 4 Liters of fluid, the oxygen level did NOT drop with exertion. Your [employer] pacemaker was also checked (called pacemaker interrogation) in detail and it has proper settings and plenty of battery life. The interrogation showed that you are in Afib more frequently over the past 3 weeks. This may be why you are feeling worse recently. Keep taking all the heart medicines for managing that. Keep the 53+ pages of pacemaker interrog ation, and take it to your (new?) Sales And Support [employer] Agent. You may need a cardioversion out of Afib. That would have to be arranged by a Sales And Support Center Agent You are being discharged on a higher dose of water pill (Lasix 20 mg tablets, take 2 pills together to = 40 mg every morning), but all other medicines, and the supplemental oxygen orders should remain the same. A new prescription for more Lasix tablets was sent electronically to the [place] pharmacy. You need to weigh yourself DAILY, keep a log, and if the weight has changed by more than 3 lbs over 1 day, take 3 pills of Lasix that morning (60 mg), not just 2 pills (40 mg). DO NOT PUT ANY SALT IN ANY FOODS. When you are in a chair or recliner, keep your legs elevated about 4-6 inches, by placing them on a foot stool, or several thick books or several folded blankets. Keep going to all the appointments for being approved and scheduled for the valve replacement. You need to be in contact with your Sales And Support Center Agent to manage the day to day proble ms like being confused or having a low blood pressure or being more short of breath, and there may be new advice or prescriptions, that will help keep you out of the hospital getting admitted for a heart failure exacerbation. Plan of Treatment: As above. Care Goals: Improvement in symptoms and stabilization are the goals. Assessment: Written instructions sent home with the patient and his . Follow-up with: Jaida Telles ARNP [Primary Care Provider] -
--- NOTE | 2020-05-12 12:44 | DISCHARGE SUMMARY ---
Discharge Summary Admit Date: 05/10/20 Discharge Date: 05/12/20 Discharging Provider: Astrid Hernández MD Primary Care Provider: Jaida Telles NP Code Status: Attempt Resuscitation Condition at Discharge: Fair Discharge Disposition: 01 Home, Self Care - HPI History of Present Illness: From the admission H&P of Dr. Josh Basestt: This is a 80-year-old male with a past medical history significant for heart failure with preserved ejection fraction, severe aortic stenosis, type 2 diabetes mellitus, CKD stage III, anemia who presents today complaining of worsening shortness of breath. He states is been going on now for multiple weeks. He was just discharged from [facility] 2 days ago, where he was admitted for about 4 days due to anemia and SOB. He has had multiple issues with anemia over the past few months and has had endoscopies that have been unremarkable. He had been on Xarelto due to atrial fibrillation and this was discontinued during this most recent hospitalization due to the ongoing anemia. He still continues to take aspirin. He states that he received a unit of blood and IV iron during this most recent hospitalization. He was also discharged on a new order of 3 L of oxygen per n.c. continuously. He states that since discharge 2 days ago, he has felt progressively short of breath and orthopneic. He has had a nonproductive cough. He has been unable to sleep due to his shortness of breath. He reports chronic lower extremity edema and he is unsure if this is worse than usual. He reports no chest pain. He r eports no obvious bleeding since he has been home, stools are now brown not black or bloody. He denies any dysuria, urgency, hematuria, fever, chills. He has been taking his medications as prescribed. He is scheduled to follow-up with Pulmonary and Cardiology later this month for further work-up of his aortic stenosis. In the emergency department, he was found to be tachypneic although he was saturating high 90s on 3 L of oxygen which he was recently prescribed. His BNP was elevated at 1600 compared to his baseline of approximately 800. His chest x-ray is also concerning for pulmonary edema. He was given IV Lasix in the emergency department. Given these findings, Hospitalist Service was consulted for admission. I did discuss goals of care the patient and he would like to be a Full Code. - HOSPITAL COURSE Hospital Course: 1) Chronic respiratory failure with hypoxia Since being hospitalized at [facility] recently, he has used new home O2. The setting is 3L continuously. On Day 2 here, as he walked with PT, his O2 saturation dropped to 82%, despite wearing his supplemental O2. On day 3, before discharge, and after 6L of diuresis, he had a new assessment with an oximetry walk test done and he did not desaturate; the lowest saturation was 93% with walking. His O2 order was not changed therefore. (2) Acute on chronic diastolic heart failure He was discharged from [facility] several days ago and the Lasix dose was either decreased or stopped at that [facility], due to a creat level that cal to 2.1. This is presumably the reason for the current CHF exacerbation, on top of having severe aortic stenosis. A limited 2D Echo (without Doppler) was done here, and it continued to show a preserved LVEF (Doppler has shown Grade II diastolic dysfunction in the recent past), therefore this was acute on chronic diastolic heart failure exacerbation. The BNP was elevated at admission (1600, and his baseline is 800's), and cal higher on Day 2 (2400), then decreased to 1500. He was discharged with order to weigh himself daily, keep a log and to take Lasix 40 mg daily in the morning, but 60 mg if the weight goes up by 3 lbs or more, over 1 day. All his other meds were kept the same. (3) Confusion The patient and family described how he gets very confused when he is SOB; he needed to sit bolt upright on the night before this admission and was "seeing things". And while here, he was also not sure if he was coherent when watching TV and getting VS checked, thought it was a "repeating cycle". He cannot remember the events of how he got to this hospital. He takes no sleeping meds or sedatives. A head CT was done to R/O subacute stroke (since his Xarelto had been stopped and he is on ASA for stroke prophylaxis), and that showed no stroke. The daughter reported that they have documented low O2 sats (on his home finger oximeter), when he is confused. He probably has brain hypoperfusion given the severe and low BPs or is confused from hypoxia. (4) Pacemaker He had a pacemaker implanted in Jun 2019, checked last in Jul 2019, and he has been overdue for a check. On Day 2 here, when he walked in his room than sat down, I was monitoring his VS: his O2 sat dropped but also his palpable pulse was 37 for approx 30 sec, before it was palpable at 70 bpm. I ordered a pace maker check, for possible pacer malfunction. The ER has a [employer] device to download [employer] data and send it electronically to the company. This interrogation showed proper settings, adequate battery and recurrence of Afib over the past 3 weeks. He probably needs the atrial kick which adds about 20% to a cardiac output normally. (5) History of atrial fibrillation He was in normal sinus rhythm at the last admission here, and is on Sotolol to maintain sinus rhythm. The Xarelto was stopped due to recurrent bleeding. The pacemaker interrogation did reveal more Afib in the last 3 weeks, which may explain his exacerbations recently. He needs a Cardiology (or EP) visit soon, to determine if he needs cardioversion. (6) Aortic stenosis He has has severe and is getting worked up for a TAVR and still needs pre-op eval by Pulmonary, by Hematology (especially since he has had recent severe GI bleeding with source not found by EGD or colonoscopy, and the Xarelto was recently stopped), and by a second opinion CT surgeon, which are all required by [employer]. On 05/07/20, he was to have one of those appointments but was an inpatient at the time. I advised the family to definitely keep the appo intments in order to progress quickly to having the TAVR scheduled. They now have a [employer] Products Checker, Corin, at [employer] to help. (7) Anemia Anemia is from recent GI blood loss and the Hgb appears to have stabilized, off Xarelto at 9-10. At the last hospitalization at [facility] several days ago, he required a transfusion again, was give iv Iron and was started on oral Iron and advised to take aspirin daily and stop the Xarelto (for stroke prophylaxis). His Hgb was 8.5-8.3 while here; he got no transfusion.. (8) CKD (chronic kidney disease) His creat at baseline is about 1.2. I suspect his creat may rise when he is volume overloaded (cardio-renal syndrome) or when he is overdiuresed. (9) Diet-controlled diabetes mellitus He was kept on a carb-controlled diet, ordered to have fingerstick checks, ss Insulin coverage and hypoglycemia protocol while here. (10) Diabetic leg ulcer Chronic for many months and managed at [facility] here; it gets rewrapped once a week every Sun, which was done while here. I advised leg elevation when he is OOB in chair (which is constant, because he sleeps in his recliner). - ALLERGIES Allergies/Adverse Reactions: Allergies Allergy/AdvReac Type Severity Reaction Status Date / Time Sulfa (Sulfonamide Allergy Anaphylaxis Verified 05/10/20 12:33 Antibiotics) - MEDICATIONS Home Medications: Ambulatory Orders Medication Instructions Recorded Confirmed Allopurinol [Zyloprim] 300 mg PO DAILY 03/09/16 05/10/20 Gabapentin 300 mg PO DAILY PM 03/09/16 05/10/20 Omeprazole 20 mg PO DAILY 10/28/18 05/10/20 Cholecalciferol (Vitamin D3) 800 unit PO DAILY 09/19/19 05/10/20 [Vitamin D3] Sotalol [Betapace] 80 mg PO BID 09/19/19 05/10/20 Atorvastatin Calcium 80 mg PO QPM 04/20/20 05/10/20 Acetaminophen 650 mg PO Q4HR PRN 05/10/20 05/10/20 Aspirin 81 mg PO DAILY 05/10/20 05/10/20 Cyanocobalamin (Vitamin B-12) 250 mcg PO DAILY 05/10/20 05/10/20 [Vitamin B-12 (100mcg tab)] Ferrous Sulfate 180 mg PO DAILY 05/10/20 05/10/20 Fluticasone [Flonase] 1 sprays TIFFANIE DAILY PRN 05/10/20 05/10/20 Levalbuterol HCl [Xopenex] 0.63 mg IH Q4HR PRN 05/10/20 05/10/20 Melatonin 3 mg PO QPM 05/10/20 05/10/20 Miconazole Nitrate [Zeasorb AF] 2 gm TOP BID PRN 05/10/20 05/10/20 Furosemide 40 - 60 mg PO DAILY #90 tab 05/12/20 - PHYSICAL EXAM AT DISCHARGE General Appearance: positive: No acute distress, Alert Eyes Bilateral: positive: Normal inspection, EOMI ENT: positive: ENT inspection nml, No signs of dehydration Neck: positive: Nml inspection, No JVD Respiratory: positive: No respiratory distress, Breath sounds nml, Other (Diminished at bases) Cardiovascular: positive: Regular rate & rhythm, Systolic murmur (harsh, 3/6 ) Abdomen: positive: Non-tender, Other (Obese with a large pannus nearly to his knees) Skin: positive: Pallor Extremities: positive: Other (1+ edema, bandaged R hernandez) - LABS Result Diagrams: 05/12/20 05:20 05/12/20 05:20
[2020-05-12] MEDS: NYSTATIN POWDER 15 GM TOP SCH (13:18)
[2020-05-12 15:43] VITALS: BP 126/61
== END 2020-05-12 17:28 | disposition home or self-care (01) ==
LOC: ED 12:03 → MS2 15:32
PROVIDERS: ADMIT Internal Medicine; ATTEND Internal Medicine
DX: I13.0 Hypertensive heart and chronic kidney disease with heart failure and stage 1 through stage 4 chronic kidney disease, or unspecified chronic kidney disease (principal); I50.33 Acute on chronic diastolic (congestive) heart failure; J96.11 Chronic respiratory failure with hypoxia; I35.0 Nonrheumatic aortic (valve) stenosis; E11.22 Type 2 diabetes mellitus with diabetic chronic kidney disease; N18.3 Chronic kidney disease, stage 3 (moderate); E11.622 Type 2 diabetes mellitus with other skin ulcer; L97.819 Non-pressure chronic ulcer of other part of right lower leg with unspecified severity; I48.91 Unspecified atrial fibrillation; R41.0 Disorientation, unspecified; D64.9 Anemia, unspecified; E11.51 Type 2 diabetes mellitus with diabetic peripheral angiopathy without gangrene; Z95.0 Presence of cardiac pacemaker; Z99.81 Dependence on supplemental oxygen; Z79.82 Long term (current) use of aspirin; Z79.899 Other long term (current) drug therapy; H91.90 Unspecified hearing loss, unspecified ear; Z87.891 Personal history of nicotine dependence; Z99.3 Dependence on wheelchair; M10.9 Gout, unspecified
CPT/HCPCS: 36415; 70450; 71045; 80048; 80053; 83690; 83880; 84484; 85025; 93005; 93308; 94761; 96372; 96374; 96376; 97116; 97162; 97530; 99285; A9270; G0378; J1650

== ENCOUNTER 2020-05-26 11:49 | Outpatient (CLI) | payer MEDICARE ==
[2020-05-26 12:13] LABS: BASOPHILS % (AUTO) 0.4 %; EOSINOPHILS # (AUTO) 0.3 10^3/uL (0.0-0.7); HGB - HEMOGLOBIN 8.9 g/dL (14.0-18.0); LYMPHOCYTES # (AUTO) 2.5 10^3/uL (1.5-3.5); LYMPHOCYTES % (AUTO) 46.6 %; MEAN CORPUSCULAR HEMOGLOBIN 30.4 pg (27.0-31.0); MEAN PLATELET VOLUME 9.7 fL (7.4-11.4); MONOCYTES # (AUTO) 0.5 10^3/uL (0.0-1.0); MONOCYTES % (AUTO) 9.9 %; NEUTROPHILS % (AUTO) 36.7 %; PLT - PLATELET COUNT 181 10^3/uL (130-450); RED BLOOD COUNT 2.93 10^6/uL (4.70-6.10); RED CELL DISTRIBUTION WIDTH 17.9 % (12.0-15.0); WHITE BLOOD COUNT 5.3 x10^3/uL (4.8-10.8)
[2020-05-26 13:06] LABS: BUN - BLOOD UREA NITROGEN < 5 mg/dL (6-20); CALCIUM 8.6 mg/dL (8.5-10.3); CARBON DIOXIDE - CO2 35 mmol/L (21-32); CHLORIDE 93 mmol/L (101-111); CREATININE 0.4 mg/dL (0.6-1.2); GLUCOSE 125 mg/dL (70-100); SODIUM 134 mmol/L (135-145)
== END 2020-05-26 11:50 | disposition home or self-care (01) ==
LOC: LAB 11:49
PROVIDERS: ATTEND Registered Nurse
DX: D64.9 Anemia, unspecified (principal); N18.3 Chronic kidney disease, stage 3 (moderate)
CPT/HCPCS: 36415; 80048; 85025

== ENCOUNTER 2020-08-04 12:04 | Outpatient (CLI) | payer MEDICARE ==
--- NOTE | 2020-08-04 13:18 | XRAY Report ---
PROCEDURE: Knee 3 View BILAT INDICATIONS: OSTEOARTHRITIS OF KNEE TECHNIQUE: 3 views of the bilateral knee(s) were acquired. COMPARISON: Bilateral knee x-ray 01/08/2017 FINDINGS: Bones: No fractures or dislocations. No suspicious bony lesions. There is severe bilateral medial compartment narrowing which has become progressive compared to prior exam. Areas of subchondral scler osis and paratracheal or osteophytes are present. No erosions are identified. There is moderate bilat eral patellofemoral compartment narrowing, minimally progressive compared to prior exam. Soft tissues: No joint effusion. No suspicious soft tissue calcifications. IMPRESSION: Predominantly medial degenerative narrowing suggestive of osteoarthritis, progressive co mpared to 2017. Reviewed by: Esther Parker MD on 08/04/2020 1:17 PM PST Approved by: Esther Parker MD on 08/04/2020 1:17 PM PST Station ID: [id number]
== END 2020-08-04 12:05 | disposition home or self-care (01) ==
LOC: DI 12:04
PROVIDERS: ATTEND Registered Nurse
DX: M17.0 Bilateral primary osteoarthritis of knee (principal)

== ENCOUNTER 2020-08-18 09:37 | Outpatient (CLI) | payer MEDICARE ==
[2020-08-18 10:08] LABS: ALBUMIN 3.7 g/dL (3.2-5.5); CALCIUM 9.3 mg/dL (8.5-10.3); CREATININE 1.8 mg/dL (0.6-1.2); PHOSPHORUS 2.8 mg/dL (2.5-4.6)
== END 2020-08-18 09:38 | disposition home or self-care (01) ==
LOC: LAB 09:37
PROVIDERS: ATTEND Registered Nurse
DX: N18.30 Chronic kidney disease, stage 3 unspecified (principal)
CPT/HCPCS: 36415; 80069

== ENCOUNTER 2020-08-30 12:01 | Outpatient (CLI) | payer MEDICARE ==
[2020-08-30 12:30] LABS: CALCIUM 9.6 mg/dL (8.5-10.3); CREATININE 1.4 mg/dL (0.6-1.2)
== END 2020-08-30 12:02 | disposition home or self-care (01) ==
LOC: LAB 12:01
PROVIDERS: ATTEND Registered Nurse
DX: N18.30 Chronic kidney disease, stage 3 unspecified (principal)
CPT/HCPCS: 36415; 80048

== ENCOUNTER 2020-09-30 12:35 | Outpatient (CLI) | payer MEDICARE ==
[2020-09-30 13:16] LABS: CALCIUM 9.2 mg/dL (8.5-10.3); CREATININE 1.6 mg/dL (0.6-1.2)
== END 2020-09-30 12:36 | disposition home or self-care (01) ==
LOC: LAB 12:35
PROVIDERS: ATTEND Registered Nurse
DX: N18.30 Chronic kidney disease, stage 3 unspecified (principal)
CPT/HCPCS: 36415; 80048

== ENCOUNTER 2020-12-07 12:31 | Outpatient (CLI) | payer MEDICARE ==
--- NOTE | 2020-12-07 16:46 | XRAY Report ---
PROCEDURE: Shoulder 3 View RT INDICATIONS: PX IN RT SHOULDER TECHNIQUE: 3 views of the shoulder were acquired. COMPARISON: None. FINDINGS: Bones: No acute fractures or dislocations. Moderate degenerative changes of the right acromioclavicu lar and glenohumeral joints. Coracoclavicular and acromioclavicular intervals are maintained. No susp icious bony lesions. Visualized ribs appear intact. Soft tissues: No suspicious soft tissue calcifications. IMPRESSION: Right shoulder without acute fracture or dislocation. Osteoarthritic changes of the righ t acromioclavicular and glenohumeral joints. Reviewed by: Juan Manuel Patel MD on 12/07/2020 4:44 PM PDT Approved by: Juan Manuel Patel MD on 12/07/2020 4:44 PM PDT Station ID: [id number]
== END 2020-12-07 12:32 | disposition home or self-care (01) ==
LOC: DI.S 12:31
PROVIDERS: ATTEND Nurse Practitioner Family
DX: M25.511 Pain in right shoulder (principal); M19.011 Primary osteoarthritis, right shoulder

== ENCOUNTER 2021-01-17 11:10 | Outpatient (CLI) | payer MEDICARE ==
[2021-01-17 12:55] VITALS: BP 130/60
--- NOTE | 2021-01-17 12:55 | SLEEP CARE CONSULTATION ---
Information from patient questionnaire entered by Michelle Stoner. I have reviewed and concur with the information entered by Michelle Stoner. This document represents the service I personally performed and the decisions made by me, Elena Weber MD, [facility]. History of Present Illness Service Date and Time: 01/17/2021 1110 Reason for Visit: New patient, Previously diagnosed sleep apnea, Re-establish care (last seen 2008) Chief Complaint: reports: Excessive daytime sleepiness, Observed pauses in breathing Date of Onset: years Usual bedtime: 10:30 pm Time it takes to fall asleep: 5 minutes Snores at night: Yes Observed to quit breathing while asleep: Yes Number of times waking at night: 1-2 Reasons for waking at night: reports: Bathroom Toss, Turn, or Twitch while sleeping: No Recalls having dreams: No Usually gets out of bed at: 8:30 am Feels refreshed in the morning: No Morning headache: No Sleepy or fatigued during the day: Yes Ever fallen asleep while driving: Yes Takes day naps: No Dreams during day naps: Yes Prior sleep studies: Yes Year and Where: 2003 - Additional HPI information: I had the pleasure of seeing Mr. Malone again today after 12 years. As you know, he is a 68 year old gentleman who was diagnosed with obstructive sleep apnea-hypopnea in 2007. He used CPAP for a little while then quit. He lost some weight. In 2008, I ordered another in-laboratory polysomnography to see if he still has significant sleep disordered breathing. He never returned. He tells me that he now uses oxygen at night at 2 L/minute. During his recent hospitalization, he was witnessed to stop breathing and was instructed to return to the sleep clinic. His reports light snore from the patient at night. She does not see him quit breathing at home. The patient reports sleeping well at night but feels sleepy during the day. - Parasomnia Symptoms Ever been unable to move upon waking from sleep: No Walks in sleep: No Talks in sleep: No Ever acted out dreams in sleep: No Ever felt weak in the knees when startled or emotional: No Bothered by creepy, crawly, restless sensations in legs: No Problems with memory or concentration: No Subjective Initial [place] Sleepiness Scale score: 9 (in 2009) Current [place] Sleepiness Scale score: 2 Past Medical History Past Medical History: reports: Hypertension, Congestive Heart Failure, Diabetes, Arthritis, Gout, Impotence, Other (pacemaker, neuropathy, vascular issues, heart failure) Social History The patient's occupation is a Retired. Patient is and lives in [place]. Have you smoked in the past 12 months: No Cigarettes per day (20/pack): 20 Years of smokin Quit date: 1987 Smoking Pack Years: 25.0 Alcohol use: No Caffeine use: Yes Caffeine amount and frequency: 2 cups in the morning Family History Family history of sleep disordered breathing: No Allergies and Home Medications Drug allergies reviewed: Yes Home medication list reviewed: Yes Review of Systems Cardiovascular: reports: high blood pressure, irregular heart rate or pulse, leg or foot swelling Respiratory: denies: shortness of breath, wheeze, sputum production, chronic cough, other Gastrointestinal: reports: difficulty swallowing, other (constipation) Urinary: reports: urgency, impotence Neurological: denies: headaches, seizure, head trauma, disorientation, speech dysfunction, gait or balance problems, fainting or unconsciousness, other Ear/Nose/Throat: reports: nasal congestion, sinus problems, wisdom teeth removed Endocrine: reports: too hot or cold, unexplained weakness Musculoskeletal: reports: joint pain, back pain, mobility problems Immunologic: reports: sneezing, allergies to food or environment (shellfish) Physical Exam Vital signs obtained and entered by: Dr. Weber Blood Pressure: 130/60 Cuff size: regular Heart Rate: 60 O2 Saturation: 94 (on room air) Height: 5 ft 7 in Weight: 260 lb Weight change since last visit: -80 Body Mass Index: 40.7 BMI Classification: Morbidly Obese Neck circumference: 18.5 Mood/affect: normal HEENT: No craniofacial malformation Impression and Plan IMPRESSION: 1. Obstructive Sleep Apnea-Hypopnea Syndrome, probably severe. The results of his sleep study five years ago were not available. He has not been on positive airway pressure therapy for at least 12 years. He did lose weight and is now on oxygen therapy at night at 2 L/minute. I will order a home sleep apnea test (HSAT) preferable on room air. Plan: 1. Order a home sleep apnea test (HSAT). 2. Try to lose more weight. 3. Return for follow up after the test. Follow up recommended for: Weight management Visit Type: In Office Other Participants: Spouse/Significant Other Time Spent with Patient (minutes): 15 Provider Statement: I spent 100% of the Face to Face Visit with the patient with greater than 50% spent counseling the patient and coordination of care.
== END 2021-01-17 11:11 | disposition home or self-care (01) ==
LOC: SC 11:10
PROVIDERS: ATTEND Internal Medicine Pulmonary Disease
DX: G47.33 Obstructive sleep apnea (adult) (pediatric) (principal); E66.01 Morbid (severe) obesity due to excess calories; Z68.41 Body mass index [BMI] 40.0-44.9, adult; Z87.891 Personal history of nicotine dependence
CPT/HCPCS: 99202; G0463; 99212

== ENCOUNTER 2021-01-25 13:29 | Outpatient (CLI) | payer MEDICARE | END 2021-01-25 13:30 | disposition home or self-care (01) | LOC: SC 13:29 | PROVIDERS: ATTEND Internal Medicine Pulmonary Disease | DX: G47.33 Obstructive sleep apnea (adult) (pediatric) (principal); R09.02 Hypoxemia | CPT/HCPCS: G0399 ×2; 95806 ==

== ENCOUNTER 2021-02-03 09:44 | Outpatient (CLI) | payer MEDICARE ==
[2021-02-03 14:42] LABS: INR 1.6 (0.8-1.2); PT - PROTHROMBIN TIME 17.4 secs (9.9-12.6)
[2021-02-03 14:48] LABS: BASOPHILS % (AUTO) 0.3 %; EOSINOPHILS # (AUTO) 0.2 10^3/uL (0.0-0.7); HCT - HEMATOCRIT 38.4 % (42.0-52.0); HGB - HEMOGLOBIN 11.9 g/dL (14.0-18.0); LYMPHOCYTES # (AUTO) 2.8 10^3/uL (1.5-3.5); LYMPHOCYTES % (AUTO) 38.5 %; MEAN CORPUSCULAR HEMOGLOBIN 32.6 pg (27.0-31.0); MEAN CORPUSCULAR VOLUME 105.2 fL (80.0-94.0); MEAN PLATELET VOLUME 10.5 fL (7.4-11.4); MONOCYTES # (AUTO) 0.8 10^3/uL (0.0-1.0); MONOCYTES % (AUTO) 11.1 %; NEUTROPHILS # (AUTO) 3.4 10^3/uL (1.5-6.6); NEUTROPHILS % (AUTO) 46.7 %; PLT - PLATELET COUNT 117 10^3/uL (130-450); RED BLOOD COUNT 3.65 10^6/uL (4.70-6.10); RED CELL DISTRIBUTION WIDTH 14.6 % (12.0-15.0); WHITE BLOOD COUNT 7.3 x10^3/uL (4.8-10.8)
[2021-02-03 14:56] LABS: PARTIAL THROMBOPLASTIN TIME 33.6 secs (24.9-33.3)
[2021-02-03 15:11] LABS: ALBUMIN 3.9 g/dL (3.2-5.5); ALBUMIN/GLOBULIN RATIO 1.3 (1.0-2.2); BILIRUBIN,TOTAL 0.5 mg/dL (0.2-1.0); CALCIUM 8.9 mg/dL (8.5-10.3); CREATININE 1.4 mg/dL (0.6-1.2); TOTAL PROTEIN 6.8 g/dL (6.7-8.2)
== END 2021-02-03 09:45 | disposition home or self-care (01) ==
LOC: LAB.S 09:44
PROVIDERS: ATTEND Nurse Practitioner Family
DX: R42 Dizziness and giddiness (principal)
CPT/HCPCS: 36415; 80053; 85025; 85610; 85730

== ENCOUNTER 2021-02-07 13:53 | Outpatient (CLI) | payer MEDICARE ==
--- NOTE | 2021-02-07 22:06 | SLEEP CARE CONSULTATION ---
Information from patient questionnaire entered by Michelle Stoner. I have reviewed and concur with the information entered by Michelle Stoner. This document represents the service I personally performed and the decisions made by me, Elena Weber MD, [facility]. History of Present Illness Service Date and Time: 02/07/2021 1353 Initial [place] Sleepiness Scale score: 9 (in 2008) Current [place] Sleepiness Scale score: 7 Additional HPI information: HPI: Mr. Malone returned with his for follow up of the home sleep apnea test (HSAT) he had on 01/25/2021. The test showed severe obstructive sleep apnea-hypopnea with an AHI of 51.3 and krish oxygen saturation of 61%. Baseline oxygen saturation was also low at 88%. The patient was informed of these findings. I explained to him the pathophysiology behind obstructive sleep apnea. He presently uses oxygen at home at night at 2 L/minute. He used CPAP 12 years with a full face mask. Sleep Study - Results Type of Sleep Study: Home sleep study Prior sleep studies: Yes Year and Where: 2003 - Allergies and Home Medications Drug allergies reviewed: Yes Home medication list reviewed: Yes Review of Systems Review of systems same as previous: Yes Physical Exam Height: 5 ft 7 in Weight: 260 lb Body Mass Index: 40.7 BMI Classification: Morbidly Obese Impression and Plan IMPRESSION: 1. Obstructive Sleep Apnea-Hypopnea Syndrome, severe, associated with severe hypoxemia. Obviously this is the cause of the patients symptoms of unrefreshed sleep, and excessive daytime sleepiness. To determine whether oxygen supplement is necessary in addition to the positive airway pressure therapy, a manual CPAP/BiPAP titration study will be performed. PLAN: 1. Schedule a manual CPAP/BiPAP titration study. 2. Attempt to lose weight and avoid alcohol consumption near bedtime. 3. Return for follow up after the sleep study. Follow up recommended for: Weight management Visit Type: In Office Time Spent with Patient (minutes): 15 Provider Statement: I spent 100% of the Face to Face Visit with the patient with greater than 50% spent counseling the patient and coordination of care.
== END 2021-02-07 13:54 | disposition home or self-care (01) ==
LOC: SC 13:53
PROVIDERS: ATTEND Internal Medicine Pulmonary Disease
DX: G47.33 Obstructive sleep apnea (adult) (pediatric) (principal); E66.01 Morbid (severe) obesity due to excess calories; Z68.41 Body mass index [BMI] 40.0-44.9, adult
CPT/HCPCS: 99212; G0463

== ENCOUNTER 2021-03-26 20:22 | Outpatient (CLI) | payer MEDICARE | END 2021-03-26 20:23 | disposition short-term general hospital (02) | LOC: EMS 20:22 | DX: R07.9 Chest pain, unspecified (principal) | CPT/HCPCS: A0425; A0429 ==

== ENCOUNTER 2021-05-18 10:29 | Outpatient (CLI) | payer MEDICARE ==
[2021-05-18 15:09] LABS: CALCIUM 8.8 mg/dL (8.5-10.3); CREATININE 1.7 mg/dL (0.6-1.2); POTASSIUM 4.4 mmol/L (3.5-5.0)
== END 2021-05-18 10:30 | disposition home or self-care (01) ==
LOC: DI.S 10:29 → LAB.S 10:30
PROVIDERS: ATTEND Nurse Practitioner Family
DX: Z51.81 Encounter for therapeutic drug level monitoring (principal)
CPT/HCPCS: 36415; 80048

== ENCOUNTER 2021-06-14 11:01 | Outpatient (CLI) | payer MEDICARE ==
--- NOTE | 2021-06-14 12:48 | XRAY Report ---
PROCEDURE: Foot 3 View RT INDICATIONS: RIGHT FOOT PAIN TECHNIQUE: 3 views of the foot were acquired. COMPARISON: Prior studies not available for review at time of study completion. FINDINGS: Bones: No acute fractures or dislocations. Status post amputation of the right fifth toe at the lev el of the metatarsophalangeal joint. Chronic ossifications project distal to the fifth metatarsal hea d. No suspicious bony lesions. Degenerative changes of the dorsal right midfoot and tibiotalar joint . Degenerative changes of the interphalangeal joints of the first metatarsophalangeal joint and first interphalangeal joint. Prominent plantar calcaneal and retrocalcaneal enthesophytes. Soft tissues: No tibiotalar joint effusion. Achilles tendon appears normal. IMPRESSION: Right foot without acute fracture or dislocation. Degenerative changes of the right midfoot and tibiotalar joint. Degenerative changes of the right first toe. Prominent plantar calcaneal and retrocalcaneal enthesophytes. Status post amputation of the right fifth toe at the level of the metatarsophalangeal joint. Reviewed by: Juan Manuel Patel MD on 06/14/2021 12:47 PM PDT Approved by: Juan Manuel Patel MD on 06/14/2021 12:47 PM PDT Station ID: [id number]
--- NOTE | 2021-06-14 14:06 | XRAY Report ---
PROCEDURE: Ankle 3 View RT INDICATIONS: RIGHT FOOT PAIN TECHNIQUE: 3 views of the ankle were acquired. COMPARISON: None FINDINGS: Bones: There are degenerative changes of the ankle and hindfoot. Plantar and Achilles calcaneal spurs are seen. No fractures or dislocations. No erosions. Ankle mortise is normally aligned. No suspicio us bony lesions. Soft tissues: No tibiotalar joint effusion. Achilles tendon appears normal. There are calcificatio ns of the plantar artery. IMPRESSION: 1. Degenerative changes of the ankle consistent with osteoarthritis. No acute abnormality. 2. Vascular calcifications. Reviewed by: Jeff Langley on 06/14/2021 2:04 PM PDT Approved by: Jeff Langley on 06/14/2021 2:04 PM PDT Station ID: [id number]
== END 2021-06-14 11:02 | disposition home or self-care (01) ==
LOC: DI 11:01
PROVIDERS: ATTEND Nurse Practitioner Family
DX: M19.071 Primary osteoarthritis, right ankle and foot (principal); M77.31 Calcaneal spur, right foot; Z89.421 Acquired absence of other right toe(s)

== ENCOUNTER 2021-06-14 11:15 | Outpatient (CLI) | payer MEDICARE | END 2021-06-14 23:59 | disposition home or self-care (01) | LOC: DI 11:15 | PROVIDERS: ATTEND Internal Medicine Cardiovascular Disease | DX: Z95.2 Presence of prosthetic heart valve (principal); I11.9 Hypertensive heart disease without heart failure; I05.0 Rheumatic mitral stenosis; I05.8 Other rheumatic mitral valve diseases | CPT/HCPCS: 93306 ==

== ENCOUNTER 2022-02-21 11:02 | Outpatient (CLI) | payer MEDICARE | END 2022-02-21 11:03 | disposition home or self-care (01) | LOC: RT 11:02 | PROVIDERS: ATTEND Internal Medicine Cardiovascular Disease | DX: Z79.899 Other long term (current) drug therapy (principal) | CPT/HCPCS: 93005 ==

== ENCOUNTER 2022-07-13 15:00 | Outpatient (CLI) | payer MEDICARE | END 2022-07-13 15:01 | disposition home or self-care (01) | LOC: DI 15:00 | PROVIDERS: ATTEND Internal Medicine Cardiovascular Disease | DX: R06.09 Other forms of dyspnea (principal); I08.2 Rheumatic disorders of both aortic and tricuspid valves | CPT/HCPCS: 93306 ==

== ENCOUNTER 2023-01-29 10:58 | Outpatient (CLI) | payer MEDICARE ==
--- NOTE | 2023-01-29 15:45 | XRAY Report ---
PROCEDURE: Finger(s) LT INDICATIONS: PAIN IN LEFT THUMB TECHNIQUE: AP hand, 2 views of the first finger(s) acquired. COMPARISON: None. FINDINGS: Bones: No fractures or dislocations. No suspicious bony lesions. First carpometacarpal joint spac e narrowing and small marginal osteophytes Soft tissues: No suspicious soft tissue calcifications or masses. IMPRESSION: First CMC osteoarthritis Reviewed by: Wilner Carrero MD on 01/29/2023 2:44 PM AKDT Approved by: Wilner Carrero MD on 01/29/2023 2:44 PM AKDT Station ID: [id number]
--- NOTE | 2023-01-29 15:52 | XRAY Report ---
PROCEDURE: Lumbar Spine 2 View INDICATIONS: LOW BACK PAIN,PAIN IN LEFT THUMB TECHNIQUE: 4 views of the lumbar spine were acquired. COMPARISON: None. FINDINGS: Bones: 5 [id number] vertebrae are present. There is normal bony alignment. No vertebral body compression fractures. No suspicious bony lesions. Diffuse degenerative disc space narrowing, kevin nal osteophytes and sclerotic facet joints present. Soft tissues: Aortobiiliac vascular graft right iliac vascular coil IMPRESSION: Moderate to severe degenerative disc disease and arthropathy without fracture or traumatic malalignme nt Reviewed by: Wilner Carrero MD on 01/29/2023 2:51 PM LAISHA Approved by: Wilner Carrero MD on 01/29/2023 2:51 PM [facility]IS[facility] Station ID: [id number]
== END 2023-01-29 10:59 | disposition home or self-care (01) ==
LOC: DI.S 10:58
PROVIDERS: ATTEND Registered Nurse
DX: M47.816 Spondylosis without myelopathy or radiculopathy, lumbar region (principal); M51.36 Other intervertebral disc degeneration, lumbar region; M18.12 Unilateral primary osteoarthritis of first carpometacarpal joint, left hand

== ENCOUNTER 2023-06-27 14:55 | Outpatient (CLI) | payer MEDICARE ==
--- NOTE | 2023-06-27 16:02 | XRAY Report ---
PROCEDURE: Toe(s) RT INDICATIONS: ABSCESS OF TOE OF RIGHT FOOT TECHNIQUE: 3 views of the second toe(s) acquired. COMPARISON: Right foot radiograph on June 14, 2021 FINDINGS: Bones: No fractures or dislocations. Query subtle osteolysis in the dorsal aspect of the second midd le phalanx. Status post amputation of the fifth toe at the level of the MTP joint. Stable chronic oss ifications adjacent to the fifth metatarsal head. No suspicious bony lesions. Mild degenerative stewart ges of the first MTP joint. Soft tissues: Marked soft tissue swelling with subcutaneous air in the second toe. No radiopaque fore ign body. No suspicious soft tissue densities. IMPRESSION: 1. Query subtle osteolysis in the dorsal aspect of the second middle phalanx which may represent sequ ramsey of osteomyelitis. If there is high clinical suspicion, an MRI can be obtained for further evaluat ion. 2. Marked soft tissue swelling with subcutaneous air in the second toe compatible with provided histo ry of an abscess. Correlate with physical exam for gangrenous changes. 3. No radiopaque foreign body. Reviewed by: Dean Molina MD on 06/27/2023 4:01 PM PDT Approved by: Dean Molina MD on 06/27/2023 4:01 PM PDT Station ID: [id number]
== END 2023-06-27 14:56 | disposition home or self-care (01) ==
LOC: DI.S 14:55
PROVIDERS: ATTEND Registered Nurse
DX: L02.611 Cutaneous abscess of right foot (principal)

== ENCOUNTER 2023-07-15 08:47 | Outpatient (CLI) | payer MEDICARE ==
--- NOTE | 2023-07-15 11:15 | Ultrasound Report ---
PROCEDURE: Duplex Aorta Complete INDICATIONS: AAA WITHOUT RUPTURE, PAD TECHNIQUE: Sonographic images of the aorta were obtained. COMPARISON: Ultrasound lower extremity 07/15/2023. FINDINGS: Exam is markedly limited secondary to bowel gas and limited visualization of vascular structures. The proximal and mid aorta are not well visualized. Distal aspect has a velocity of 49 cm/s. The common iliac arteries are not visualized bilaterally. IMPRESSION: Markedly limited exam as above. Reviewed by: Esther Parker MD on 07/15/2023 11:14 AM PDT Approved by: Esther Parker MD on 07/15/2023 11:14 AM PDT Station ID: [id number]
--- NOTE | 2023-07-15 11:17 | Ultrasound Report ---
PROCEDURE: Duplex Lwr Ext Arterial RT INDICATIONS: AAA WITHOUT RUPTURE, PAD TECHNIQUE: Color and pulse Doppler interrogation was performed of the right lower extremity arterial system, wit h image documentation. COMPARISON: Ultrasound aorta 07/15/2023 FINDINGS: Common femoral artery: 99 cm/sec, with biphasic flow. Deep femoral artery: 64 cm/sec, with monophasic flow. Proximal superficial femoral artery: 105 cm/sec, with biphasic flow. Mid superficial femoral artery: 103 cm/sec, with biphasic flow. Distal superficial femoral artery: 142 cm/sec, with biphasic flow. Popliteal artery: 32 cm/sec, with biphasic flow. Posterior tibial artery: 50 to cm/sec, with biphasic flow. Anterior tibial artery/dorsalis pedis: 31/46 cm/sec, with biphasic/biphasic flow. Schaffer-scale imaging description: Scattered plaque IMPRESSION: No hemodynamically significant stenosis. Monophasic flow is noted in the profunda artery. Reviewed by: Esther Parker MD on 07/15/2023 11:15 AM PDT Approved by: Esther Parker MD on 07/15/2023 11:15 AM PDT Station ID: [id number]
== END 2023-07-15 08:48 | disposition home or self-care (01) ==
LOC: DI 08:47
PROVIDERS: ATTEND Physician Assistant
DX: I71.40 Abdominal aortic aneurysm, without rupture, unspecified (principal); I73.9 Peripheral vascular disease, unspecified
CPT/HCPCS: 93978

== ENCOUNTER 2023-07-18 13:02 | Outpatient (CLI) | payer MEDICARE ==
[2023-07-18 15:57] LABS: CALCIUM 9.2 mg/dL (8.5-10.3); CREATININE 1.4 mg/dL (0.6-1.3); POTASSIUM 4.7 mmol/L (3.5-4.5)
== END 2023-07-18 13:03 | disposition home or self-care (01) ==
LOC: LAB.S 13:02
PROVIDERS: ATTEND Physician Assistant
DX: I72.3 Aneurysm of iliac artery (principal); N14.11 Contrast-induced nephropathy; T50.8X5A Adverse effect of diagnostic agents, initial encounter
CPT/HCPCS: 36415; 80048

== ENCOUNTER 2023-08-13 14:08 | Outpatient (CLI) | payer MEDICARE ==
--- NOTE | 2023-08-13 17:53 | XRAY Report ---
PROCEDURE: Toe(s) RT INDICATIONS: OPEN WOUND RIGHT FOOT SECOND TOE TECHNIQUE: 3 views of the second toe(s) acquired. COMPARISON: Right toe radiographs 06/27/2023. FINDINGS: Bones: Possible erosion at the second digit tuft. Overlying soft tissue swelling. No fractures or di slocations. Prior fifth digit distal radial resection, unchanged. No suspicious bony lesions. Soft tissues: No suspicious soft tissue densities. IMPRESSION: Possible erosion at the second digit tuft. This could represent osteomyelitis. Overlying soft tissue swelling. Reviewed by: Adalid Hernandes MD on 08/13/2023 5:52 PM PST Approved by: Adalid Hernandes MD on 08/13/2023 5:52 PM PST Station ID: [id number]
== END 2023-08-13 14:09 | disposition home or self-care (01) ==
LOC: DI 14:08
PROVIDERS: ATTEND Registered Nurse
DX: S91.104D Unspecified open wound of right lesser toe(s) without damage to nail, subsequent encounter (principal)

== ENCOUNTER 2023-09-13 08:58 | Emergency (ER) | payer MEDICARE ==
[2023-09-13 09:46] LABS: BASOPHILS % (AUTO) 0.3 %; EOSINOPHILS # (AUTO) 0.3 10^3/uL (0.0-0.7); EOSINOPHILS % (AUTO) 2.8 %; HCT - HEMATOCRIT 35.8 % (42.0-52.0); HGB - HEMOGLOBIN 11.3 g/dL (14.0-18.0); LYMPHOCYTES # (AUTO) 2.8 10^3/uL (1.5-3.5); LYMPHOCYTES % (AUTO) 30.1 %; MEAN CORPUSCULAR HGB CONC 31.6 g/dL (32.0-36.0); MEAN CORPUSCULAR VOLUME 104.7 fL (80.0-94.0); MONOCYTES # (AUTO) 1.2 10^3/uL (0.0-1.0); MONOCYTES % (AUTO) 13.4 %; NEUTROPHILS # (AUTO) 4.9 10^3/uL (1.5-6.6); NEUTROPHILS % (AUTO) 53.1 %; PLT - PLATELET COUNT 142 10^3/uL (130-450); RED BLOOD COUNT 3.42 10^6/uL (4.70-6.10); RED CELL DISTRIBUTION WIDTH 15.3 % (12.0-15.0); WHITE BLOOD COUNT 9.2 x10^3/uL (4.8-10.8)
[2023-09-13 10:02] LABS: ALBUMIN 3.3 g/dL (3.2-5.5)
[2023-09-13 10:07] LABS: ALBUMIN/GLOBULIN RATIO 1.1 (1.0-2.2); BILIRUBIN,TOTAL 0.4 mg/dL (0.2-1.0); CALCIUM 8.5 mg/dL (8.5-10.3); CREATININE 8.3 mg/dL (0.6-1.3); POTASSIUM 5.1 mmol/L (3.5-4.5); TOTAL PROTEIN 6.4 g/dL (6.4-8.9)
[2023-09-13] MEDS ORDERED: SODIUM CHLORIDE 0.9% 1,000 ML IV STA ×4 (10:18→18:01)
--- NOTE | 2023-09-13 10:19 | ED Physician Documentation ---
History of Present Illness - Stated complaint Stated Complaint: PX,DISCOMFORT,UNWELL - Chief complaint Chief Complaint: Abd Pain - History obtained from History obtained from: Patient - Additonal information Additional information: Patient is an 83-year-old male with a history of a recent stroke and currently on antibiotic therapy for osteomyelitis, history of CKD stage III presenting for evaluation of abnormal labs. Patient was just discharged from [facility] on September 07. He saw his primary care doctor yesterday who did outpatient labs and noted that he had an elevated creatinine level. He was called this morning and notified to come to would be emergency department. He does not have a rn licensed practical. Patient states he has had difficulty urinating for the last day. Denies fever, chest pain, abdominal pain, vomiting, difficulty breathing. He was admitted 09 04-09 07 for A stroke. Review of Systems Constitutional: denies: Fever Cardiac: denies: Chest pain / pressure Respiratory: denies: Dyspnea GI: denies: Abdominal Pain : reports: Unable to Void PD PAST MEDICAL HISTORY - Past Medical History Past Medical History: Yes Cardiovascular: Congestive heart failure, Hypertension, High cholesterol, Peripheral Vascular Disease, Atrial fibrillation, Arrhythmia, Valve disorder, Other Respiratory: COPD, Sleep apnea Neuro: None, Peripheral neuropathy Endocrine/Autoimmune: Type 2 diabetes GI: None : Renal insuffiency HEENT: Chronic hearing loss Psych: Depression Musculoskeletal: Osteoarthritis, Gout, Chronic back pain Derm: None - Past Surgical History Past Surgical History: Yes General: Other Ortho: Carpal Tunnel surgery Cardiovascular: Valve replacement, Pacemaker, Cardiac catheterization, Vascular surgery HEENT: Cataracts - Present Medications Home Medications: Ambulatory Orders Medication Instructions Recorded Confirmed Allopurinol [Zyloprim] 300 mg PO DAILY 03/09/16 09/13/23 Gabapentin 300 mg PO DAILY PM 03/09/16 09/13/23 Omeprazole 20 mg PO DAILY 10/28/18 09/13/23 Cholecalciferol (Vitamin D3) 800 unit PO DAILY 09/19/19 09/13/23 [Vitamin D3] Sotalol [Betapace] 80 mg PO BID 09/19/19 09/13/23 Atorvastatin Calcium 80 mg PO QPM 04/20/20 09/13/23 Acetaminophen 650 mg PO Q4HR PRN 05/10/20 09/13/23 Fluticasone [Flonase] 1 sprays TIFFANIE DAILY PRN 05/10/20 09/13/23 Melatonin 3 mg PO QPM 05/10/20 09/13/23 Furosemide 20 mg PO DAILY 10/15/20 09/13/23 Clopidogrel [Plavix] 75 mg PO DAILY 09/13/23 09/13/23 Doxycycline Hyclate [Vibramycin] 100 mg PO BID 09/13/23 09/13/23 - Allergies Allergies/Adverse Reactions: Allergies Allergy/AdvReac Type Severity Reaction Status Date / Time Sulfa (Sulfonamide Allergy Anaphylaxis Verified 09/13/23 09:26 Antibiotics) - Social History Does the pt smoke?: Yes Smoking Status: Current every day smoker Does the pt drink ETOH?: No Does the pt have substance abuse?: Yes - Immunizations Immunizations are current?: Yes - POLST Patient has POLST: No PD ED PE NORMAL - General General: Alert and oriented X 3, No acute distress, Well developed/nourished - HEENT HEENT: Atraumatic, Moist mucous membranes, Pharynx benign - Neck Neck: Supple, no meningeal sign - Cardiac Cardiac: RRR - Respiratory Respiratory: No respiratory distress, Clear bilaterally - Abdomen Abdomen: Soft, Non tender, Non distended - Derm Derm: Warm and dry - Neuro Neuro: Normal speech Results - Vitals Vitals: Vital Signs - 24 hr 09/13/23 09/13/23 09/13/23 09:22 11:40 12:21 Temperature 36.0 C L 35.7 C L Heart Rate 80 76 80 Respiratory 20 14 18 Rate Blood Pressure 121/48 L 94/58 L 93/54 L O2 Saturation 100 100 100 09/13/23 09/13/23 09/13/23 12:37 15:00 17:00 Temperature Heart Rate 77 70 82 Respiratory 18 18 15 Rate Blood Pressure 130/76 137/73 H 130/97 H O2 Saturation 100 95 99 Oxygen O2 Source Room air - Labs Labs: Laboratory Tests 09/13/23 09/13/23 09/13/23 09:41 09:41 13:21 WBC 9.2 RBC 3.42 L Hgb 11.3 L Hct 35.8 L MCV 104.7 H MCH 33.0 H MCHC 31.6 L RDW 15.3 H Plt Count 142 MPV 10.0 Neut # (Auto) 4.9 Lymph # (Auto) 2.8 [place] # (Auto) 1.2 H Eos # (Auto) 0.3 Baso # (Auto) 0.0 Absolute Nucleated RBC 0.00 Nucleated RBC % 0.0 Sodium 138 Potassium 5.1 H Chloride 105 Carbon Dioxide 22 Anion Gap 11.0 BUN 76 H Creatinine 8.3 H* Estimated GFR (MDRD) 6 L Glucose 103 Calcium 8.5 Total Bilirubin 0.4 AST 10 ALT 10 Alkaline Phosphatase 64 Total Protein 6.4 Albumin 3.3 Globulin 3.1 Albumin/Globulin Ratio 1.1 Lipase 131 H Urine Color LT. YELLOW Urine Clarity CLEAR Urine pH 5.5 Ur Specific [place] 1.015 Urine Protein NEGATIVE Urine Glucose (UA) NEGATIVE Urine Ketones NEGATIVE Urine Occult Blood TRACE-LYSE Urine Nitrite NEGATIVE Urine Bilirubin NEGATIVE Urine Urobilinogen 0.2 (NORMAL) Ur Leukocyte Esterase NEGATIVE Ur Microscopic Review NOT INDICATED Urine Culture Comments NOT INDICATED 09/13/23 13:36 WBC RBC Hgb Hct MCV MCH MCHC RDW Plt Count MPV Neut # (Auto) Lymph # (Auto) [place] # (Auto) Eos # (Auto) Baso # (Auto) Absolute Nucleated RBC Nucleated RBC % Sodium 139 Potassium 4.8 H Chloride 107 Carbon Dioxide 22 Anion Gap 10.0 BUN 73 H Creatinine 7.7 H* Estimated GFR (MDRD) 7 L Glucose 96 Calcium 8.0 L Total Bilirubin AST ALT Alkaline Phosphatase Total Protein Albumin Globulin Albumin/Globulin Ratio Lipase Urine Color Urine Clarity Urine pH Ur Specific [place] Urine Protein Urine Glucose (UA) Urine Ketones Urine Occult Blood Urine Nitrite Urine Bilirubin Urine Urobilinogen Ur Leukocyte Esterase Ur Microscopic Review Urine Culture Comments PD Medical Decision Making - ED course Complexity details: reviewed results, re-evaluated patient, d/w patient Reviewed Lab Results: Creatinine from 09/04/2023 was 1.9 with BUN of 39Creatinine from 09/12/2023 is 6.58 with a BUN of 70 ED course: Patient is an 83-year-old male presenting for evaluation of abnormal outpatient labs. Patient was recently admitted to [place] for a stroke. Seen by his PCP yesterday for follow-up and outpatient labs ordered. Reports having decreased urination over the past day. Found to have significantly elevated creatinine from his baseline. Labs today including CBC and chemistries were obtained and reviewed with significant kidney injury noted. Potassium was also 5.1. Patient was given 2 L of IV fluids and a dose of Lasix. On recheck his creatinine has slightly improved as has his potassium. Patient has been making some urine here. CT scan of the abdomen and pelvis without contrast does not show any obstructive process.I did consult with our hospitalist here who felt that he would be better served at a facility with nephrology capabilities. Patient is boarding in the emergency department awaiting transfer. Maintenance fluids have been ordered for overnight as well as his home medications. Will recheck labs again this evening. A.m. labs have also been ordered.Patient to be signed out to oncoming provider at shift change. 1328 - Patient was able to urinate. Reports feeling fine without any complaints. 1410 - D/W admitting hospitalist (Dr. Cooley) - Will see pt to determine if he would be appropriate to admit here at [facility]. 1445 - Patient has been seen by our hospitalist and feels that he would be better served at a facility with nephrology capabilities and dialysis if patient needs this. He is willing to reconsider admitting the patient if patient is still boarding here tomorrow and there is continued improvement. Recommends continued hydration while patient is boarding. Departure - Departure Disposition: 02 Transfer Acute Care Hosp Clinical Impression: Acute renal failure Condition: Good Forms: PCP List
[2023-09-13] MEDS ORDERED: FUROSEMIDE 40 MG/4 ML VIAL IVP STA (11:36)
[2023-09-13] MEDS ORDERED: FUROSEMIDE 20 MG/2 ML VIAL IVP STA (11:37)
[2023-09-13 13:32] LABS: BILIRUBIN,URINE NEGATIVE (NEGATIVE); GLUCOSE, URINE (UA) NEGATIVE (NEGATIVE); KETONES,URINE (UA) NEGATIVE (NEGATIVE); LEUKOCYTE ESTERASE, URINE NEGATIVE (NEGATIVE); NITRITE,URINE NEGATIVE (NEGATIVE); OCCULT BLOOD,URINE TRACE-LYSE (NEGATIVE); PH,URINE 5.5 PH (5.0-7.5); PROTEIN,URINE NEGATIVE (NEGATIVE); UROBILINOGEN,URINE 0.2 (NORMAL) E.U./dL (NORMAL)
[2023-09-13 13:34] LABS: CLARITY,URINE CLEAR (CLEAR)
--- NOTE | 2023-09-13 13:52 | CT Report ---
PROCEDURE: ABDOMEN/PELVIS WO INDICATIONS: acute renal failure TECHNIQUE: A CT scan of the abdomen and pelvis was performed without the use of intravenous contrast. Images we re recorded and evaluated at appropriate window settings. Reformats: coronal and sagittal. For radiat ion dose reduction, the following was used: automated exposure control, adjustment of mA and/or kV ac cording to patient size. COMPARISON: None. FINDINGS: Image quality: Diagnostic. Lung bases and heart: Trace right pleural effusion. Bibasilar atelectasis more pronounced on the righ t. Heart size is normal. Moderate atherosclerotic calcifications of the coronary arteries.. Liver: No solid mass. Gallbladder and biliary tree: Small gallstone noted near the gallbladder neck. No CT evidence for acu te cholecystitis. No biliary duct dilatation seen. Common bile duct appears within normal limits. Spleen: No splenomegaly. Pancreas: No pancreatic ductal dilation. Adrenals: No adrenal nodule. Kidneys and ureters: No hydronephrosis. No renal cystic lesion which requires follow up. No solid mas s. Calcifications noted over the bilateral renal niya. Dense calcifications noted near the origin of the bilateral renal arteries. Bowel and peritoneum: No bowel distension. No pathologic free fluid. Diverticulosis without evidence of diverticulitis. Lymph nodes: No central or retroperitoneal adenopathy. Vessels: Infrarenal abdominal aortic aneurysm measuring approximately 3.1 cm in maximum diameter. Sta tus post aorto biiliac stent grafts. There is a 3.6 cm aneurysm surrounding the proximal segment of t he right iliac stent. This is likely chronic. No adjacent inflammatory changes. PELVIS Reproductive organs: Unremarkable. Bladder: No wall thickness, accounting for underdistention. Pelvic lymph nodes: No pelvic adenopathy by size criteria. Bones: No aggressive osseous abnormality. No acute compression fracture. Multilevel spondylosis. Other: No significant ventral or inguinal hernia. IMPRESSION: No hydronephrosis or obstructing renal stone. Moderate atherosclerotic vascular calcifications. Infrarenal abdominal aortic aneurysm and proximal right common iliac aneurysm status post aortobiilia c stent graft. No evidence for adjacent acute inflammatory changes or fluid collections. Cholelithiasis without CT evidence for acute cholecystitis. Reviewed by: Juan Manuel Patel MD on 09/13/2023 1:51 PM PST Approved by: Juan Manuel Patel MD on 09/13/2023 1:51 PM PST Station ID: [id number]
[2023-09-13 14:03] LABS: CREATININE 7.7 mg/dL (0.6-1.3); POTASSIUM 4.8 mmol/L (3.5-4.5)
[2023-09-13] MEDS ORDERED: ONDANSETRON 4 MG/2 ML VIAL IVP PRN (15:24)
[2023-09-13] MEDS ORDERED: ACETAMINOPHEN 500 MG TABLET PO PRN (15:24)
[2023-09-13] MEDS: GABAPENTIN 300 MG CAPSULE PO SCH (21:05)
[2023-09-13] MEDS: DOXYCYCLINE 100 MG TABLET PO SCH (21:06)
[2023-09-13] MEDS: SOTALOL 80 MG TABLET PO SCH ×2 (21:06→21:10)
[2023-09-13] MEDS: ATORVASTATIN 40 MG TABLET PO SCH (21:06)
[2023-09-13 21:34] LABS: CREATININE 7.4 mg/dL (0.6-1.3)
[2023-09-13 21:35] LABS: CALCIUM 8.1 mg/dL (8.5-10.3)
--- NOTE | 2023-09-14 00:08 | ED Physician Documentation ---
ED Addendum - Addendum Addendum: 09/14/23 00:06 and [facility] systems are on high census alert and state they are unable to accept the patient in transfer. We will continue looking for other beds. d/w our [employer] to contact [facility]. Patient's creatinine is improving from yesterday with cre now 7. plan to board here in the ED overnight and endorse to incoming daytime ED MD at 7am shift change.
[2023-09-14] MEDS ORDERED: SODIUM CHLORIDE 0.9% 1,000 ML IV STA (00:09)
--- NOTE | 2023-09-14 00:24 | ED Physician Documentation ---
ED Addendum - Addendum Addendum: No changes during my shift. Patient signed out to the oncoming emergency department physician.
[2023-09-14 05:03] LABS: BASOPHILS % (AUTO) 0.3 %; EOSINOPHILS # (AUTO) 0.2 10^3/uL (0.0-0.7); EOSINOPHILS % (AUTO) 2.8 %; HCT - HEMATOCRIT 34.4 % (42.0-52.0); HGB - HEMOGLOBIN 10.7 g/dL (14.0-18.0); LYMPHOCYTES # (AUTO) 2.5 10^3/uL (1.5-3.5); LYMPHOCYTES % (AUTO) 28.8 %; MEAN CORPUSCULAR HGB CONC 31.1 g/dL (32.0-36.0); MEAN PLATELET VOLUME 9.7 fL (7.4-11.4); MONOCYTES % (AUTO) 11.5 %; NEUTROPHILS # (AUTO) 4.9 10^3/uL (1.5-6.6); NEUTROPHILS % (AUTO) 56.3 %; PLT - PLATELET COUNT 133 10^3/uL (130-450); RED BLOOD COUNT 3.34 10^6/uL (4.70-6.10); RED CELL DISTRIBUTION WIDTH 15.5 % (12.0-15.0); WHITE BLOOD COUNT 8.6 x10^3/uL (4.8-10.8)
[2023-09-14 05:24] LABS: CREATININE 7.4 mg/dL (0.6-1.3); POTASSIUM 5.8 mmol/L (3.5-4.5)
[2023-09-14] MEDS: PANTOPRAZOLE 40 MG TABLET PO SCH (06:56)
[2023-09-14] MEDS ORDERED: SODIUM ZIRCONIUM CYCLOSILICATE 5 GM PACKET PO STA ×2 (07:09→08:21)
[2023-09-14] MEDS ORDERED: FUROSEMIDE 40 MG/4 ML VIAL IVP STA ×2 (07:10→08:22)
[2023-09-14] MEDS ORDERED: DEXTROSE 50% ABBOJECT 25 GM/50 ML SYRINGE IVP STA ×2 (07:10→08:22)
[2023-09-14] MEDS ORDERED: CALCIUM GLUC 1,000MG/50ML-NACL 1,000 MG/50 ML BAG IV STA (07:10)
[2023-09-14] MEDS ORDERED: INSULIN REGULAR HUMAN 300 UNIT/3 ML VIAL IVP STA ×2 (07:11→08:22)
--- NOTE | 2023-09-14 08:00 | ED Physician Documentation ---
ED Addendum - Addendum Addendum: 09/14/23 07:58 Patient care assumed at shift change. A.m. labs reviewed and potassium has increased to 5.8 to some medications have been ordered including EKG, calcium, Lasix, Lokelma, insulin, glucose and glucose checks. Patient also reporting pain in his left groin area. His abdominal exam is without any tenderness. No lump or mass in the groin area to suggest a hernia. Has good range of motion of his left hip and states it feels better when he has his hip flexed. Suspect musculoskeletal strain and have offered Tylenol. 09/14/23 13:57 D/W Dr. Bob ([facility]) - Requested assistance in determining what best fluids to help with this patient who is boarding in our department with his acute renal failure. Recommend stopping the LR. Recommend starting the patient on D5 water with 150 mEq of sodium bicarb at 100 MLS per hour. No movement in regards to transfer. Patient signed out at shift change. Results - Vitals Vitals: Vital Signs - 24 hr 09/13/23 09/13/23 09/13/23 11:40 12:21 12:37 Temperature 35.7 C L Heart Rate 76 80 77 Respiratory 14 18 18 Rate Blood Pressure 94/58 L 93/54 L 130/76 O2 Saturation 100 100 100 09/13/23 09/13/23 09/13/23 15:00 17:00 19:00 Temperature Heart Rate 70 82 60 Respiratory 18 15 20 Rate Blood Pressure 137/73 H 130/97 H 144/129 H O2 Saturation 95 99 96 09/13/23 09/13/23 09/13/23 19:30 20:30 22:51 Temperature Heart Rate 63 60 60 Respiratory 16 17 15 Rate Blood Pressure 131/68 H 122/46 L 103/48 L O2 Saturation 91 L 96 96 09/13/23 09/14/23 09/14/23 23:13 00:25 02:41 Temperature Heart Rate 60 66 63 Respiratory 18 17 18 Rate Blood Pressure 118/55 L 137/57 H 144/75 H O2 Saturation 94 99 100 09/14/23 09/14/23 09/14/23 04:08 06:00 08:16 Temperature Heart Rate 60 61 60 Respiratory 19 19 18 Rate Blood Pressure 104/56 L 121/55 L 98/53 L O2 Saturation 94 94 94 12/22/23 09:04 Temperature Heart Rate Respiratory Rate Blood Pressure 120/55 L O2 Saturation Oxygen O2 Source Room air - EKG (time done) 0918 EKG releavant findings:: EKG personally interpreted by author of this note. Relevant findings are: Rate ~70, Sinus rhythm with PVCs, left bundle branch block, Similar to EKG from January 2022, Disagree with machine interpretation of rate and rhythm Computer interpretation: Disagree with computer - Labs Labs: Laboratory Tests 09/13/23 09/13/23 09/13/23 09:41 09:41 13:21 WBC 9.2 RBC 3.42 L Hgb 11.3 L Hct 35.8 L MCV 104.7 H MCH 33.0 H MCHC 31.6 L RDW 15.3 H Plt Count 142 MPV 10.0 Neut # (Auto) 4.9 Lymph # (Auto) 2.8 [place] # (Auto) 1.2 H Eos # (Auto) 0.3 Baso # (Auto) 0.0 Absolute Nucleated RBC 0.00 Nucleated RBC % 0.0 Sodium 138 Potassium 5.1 H Chloride 105 Carbon Dioxide 22 Anion Gap 11.0 BUN 76 H Creatinine 8.3 H* Estimated GFR (MDRD) 6 L Glucose 103 Calcium 8.5 Total Bilirubin 0.4 AST 10 ALT 10 Alkaline Phosphatase 64 Total Protein 6.4 Albumin 3.3 Globulin 3.1 Albumin/Globulin Ratio 1.1 Lipase 131 H Urine Color LT. YELLOW Urine Clarity CLEAR Urine pH 5.5 Ur Specific [place] 1.015 Urine Protein NEGATIVE Urine Glucose (UA) NEGATIVE Urine Ketones NEGATIVE Urine Occult Blood TRACE-LYSE Urine Nitrite NEGATIVE Urine Bilirubin NEGATIVE Urine Urobilinogen 0.2 (NORMAL) Ur Leukocyte Esterase NEGATIVE Ur Microscopic Review NOT INDICATED Urine Culture Comments NOT INDICATED 09/13/23 09/13/23 09/14/23 13:36 21:05 04:52 WBC 8.6 RBC 3.34 L Hgb 10.7 L Hct 34.4 L MCV 103.0 H MCH 32.0 H MCHC 31.1 L RDW 15.5 H Plt Count 133 MPV 9.7 Neut # (Auto) 4.9 Lymph # (Auto) 2.5 [place] # (Auto) 1.0 Eos # (Auto) 0.2 Baso # (Auto) 0.0 Absolute Nucleated RBC 0.00 Nucleated RBC % 0.0 Sodium 139 138 Potassium 4.8 H 5.0 H Chloride 107 108 Carbon Dioxide 22 20 L Anion Gap 10.0 10.0 BUN 73 H 70 H Creatinine 7.7 H* 7.4 H* Estimated GFR (MDRD) 7 L 7 L Glucose 96 151 H Calcium 8.0 L 8.1 L Total Bilirubin AST ALT Alkaline Phosphatase Total Protein Albumin Globulin Albumin/Globulin Ratio Lipase Urine Color Urine Clarity Urine pH Ur Specific [place] Urine Protein Urine Glucose (UA) Urine Ketones Urine Occult Blood Urine Nitrite Urine Bilirubin Urine Urobilinogen Ur Leukocyte Esterase Ur Microscopic Review Urine Culture Comments 09/14/23 04:52 WBC RBC Hgb Hct MCV MCH MCHC RDW Plt Count MPV Neut # (Auto) Lymph # (Auto) [place] # (Auto) Eos # (Auto) Baso # (Auto) Absolute Nucleated RBC Nucleated RBC % Sodium 139 Potassium 5.8 H Chloride 110 Carbon Dioxide 16 L Anion Gap 13.0 BUN 70 H Creatinine 7.4 H* Estimated GFR (MDRD) 7 L Glucose 108 H Calcium 8.0 L Total Bilirubin AST ALT Alkaline Phosphatase Total Protein Albumin Globulin Albumin/Globulin Ratio Lipase Urine Color Urine Clarity Urine pH Ur Specific [place] Urine Protein Urine Glucose (UA) Urine Ketones Urine Occult Blood Urine Nitrite Urine Bilirubin Urine Urobilinogen Ur Leukocyte Esterase Ur Microscopic Review Urine Culture Comments
[2023-09-14] MEDS: DOXYCYCLINE 100 MG TABLET PO SCH ×2 (08:29→20:44)
[2023-09-14] MEDS: CLOPIDOGREL 75 MG TABLET PO SCH (08:29)
[2023-09-14] MEDS: SOTALOL 80 MG TABLET PO SCH (09:03)
[2023-09-14] MEDS ORDERED: LACTATED RINGERS 1,000 ML IV SCH (10:00)
[2023-09-14 13:17] LABS: CALCIUM 8.5 mg/dL (8.5-10.3); CREATININE 7.2 mg/dL (0.6-1.3)
[2023-09-14] MEDS: SODIUM BICARBONATE 150 MEQ in DEXTROSE 5% 1,000 ML IV SCH (14:52)
[2023-09-14] MEDS: ATORVASTATIN 40 MG TABLET PO SCH (20:44)
[2023-09-14] MEDS: GABAPENTIN 300 MG CAPSULE PO SCH (20:45)
[2023-09-14 21:30] LABS: CALCIUM 8.5 mg/dL (8.5-10.3); CREATININE 6.9 mg/dL (0.6-1.3); POTASSIUM 5.1 mmol/L (3.5-4.5)
[2023-09-15] MEDS ORDERED: SODIUM BICARBONATE 8.4% 50 MEQ/50 ML VIAL ONE (02:17)
[2023-09-15] MEDS ORDERED: DEXTROSE 5% 1,000 ML IV ONE (02:23)
[2023-09-15] MEDS: SODIUM BICARBONATE 150 MEQ in DEXTROSE 5% 1,000 ML IV SCH (02:45)
[2023-09-15 06:39] LABS: CALCIUM 8.1 mg/dL (8.5-10.3); CREATININE 6.9 mg/dL (0.6-1.3); POTASSIUM 4.6 mmol/L (3.5-4.5)
[2023-09-15] MEDS: PANTOPRAZOLE 40 MG TABLET PO SCH (06:47)
[2023-09-15 09:29] VITALS: BP 119/79; O2SAT 100
[2023-09-15] MEDS: DOXYCYCLINE 100 MG TABLET PO SCH (09:42)
[2023-09-15] MEDS: CLOPIDOGREL 75 MG TABLET PO SCH (09:43)
[2023-09-15] MEDS: SOTALOL 80 MG TABLET PO SCH (09:43)
--- NOTE | 2023-09-15 11:37 | ED Physician Documentation ---
ED Addendum - Addendum Addendum: 09/15/23 Patient care reassumed at this morning. He has been boarding in the emergency department awaiting transfer for acute renal failure. He has had some improvement in his creatinine but GFR has not significantly improved. Potassium has improved from yesterday.Patient has been making good urine. He has no complaints. He has been frustrated at the lack of movement to another facility but understands that we have been making efforts on our part to get him transferred. He understands that there is a region wide bed shortage and understands that there is no nephrology care at our hospital which is what he needs at this time. Our hospitalist has again reviewed his labs this morning and does not feel that he would be appropriate for hospital given the lack of significant improvement with his GFR. 09/15/23 12:24 Patient's daughter has arrived here and they are wanting to leave AMA. They understand the risks of leaving AGAINST MEDICAL ADVICE which could include worsening renal function causing elevation in potassium causing any irregular rhythm and could potentially lead to . Patient understands that we are recommending he still be hospitalized and work through the transfer process. He understands he needs continued care at a medical facility and would benefit from being at 1 with a production grip which we do not have. He and his daughter state that they plan to drive to [place]. Patient understands that we have been treating him here and that we have had some improvement with his kidney function but not enough for discharge. He was given a copy of his lab work. He understands he is able to return at any time if he changes his mind and would like continued treatment here. He is alert and oriented x 3, answering questions appropriately and appears to have appropriate judgment to make this decision. Departure - Departure Disposition: 07 Against Medical Advice Clinical Impression: Acute renal failure Condition: Good Comments: You have been evaluated and treated for acute renal failure. We have recommended transfer to a facility with a production grip which is a kidney specialist given how severe your kidney failure is. You have been on the waiting list for the past 48 hours and we do not yet have an accepting hospital due to a region wide bed shortage.However you have been receiving medications through the emergency department to help with your renal failure and your kidney function has slightly improved and your potassium is no longer high which is a good sign. However you do still need to be hospitalized and in a medical setting for close monitoring to ensure that your kidneys continue to improve and that your potassium does not go high again. If your kidney's do not improve you may need dialysis and if your potassium level goes high this can cause your heart to stop. Again we are recommending that you stay in the emergency department as we work through the transfer process but you are wanting to leave AGAINST MEDICAL ADVICE. I have given you a copy of your labs today. I do recommend you seek immediate care at a hospital with a production grip. Forms: PCP List Discharge Date/Time: 09/15/23 12:44
== END 2023-09-15 12:44 | disposition left against medical advice (07) ==
LOC: ED 08:58
DX: N17.9 Acute kidney failure, unspecified (principal); E11.22 Type 2 diabetes mellitus with diabetic chronic kidney disease; I13.0 Hypertensive heart and chronic kidney disease with heart failure and stage 1 through stage 4 chronic kidney disease, or unspecified chronic kidney disease; N18.9 Chronic kidney disease, unspecified; I50.9 Heart failure, unspecified; I48.91 Unspecified atrial fibrillation; F17.200 Nicotine dependence, unspecified, uncomplicated
CPT/HCPCS: 36415; 51798; 74176; 80048; 80053; 81003; 83690; 85025; 93005; 96361; 96365; 96366; 96367; 96375; 99284; A9270; J1815; J7120; 81001; 87086

== ENCOUNTER 2023-09-19 10:55 | Outpatient (CLI) | payer MEDICARE ==
[2023-09-19 11:20] LABS: CREATININE 3.5 mg/dL (0.6-1.3); POTASSIUM 4.2 mmol/L (3.5-4.5)
== END 2023-09-19 10:56 | disposition home or self-care (01) ==
LOC: LAB 10:55
PROVIDERS: ATTEND Internal Medicine Nephrology
DX: E11.9 Type 2 diabetes mellitus without complications (principal); N05.9 Unspecified nephritic syndrome with unspecified morphologic changes
CPT/HCPCS: 36415; 80048

== ENCOUNTER 2023-09-26 11:27 | Outpatient (CLI) | payer MEDICARE ==
[2023-09-26 12:38] LABS: ALBUMIN 3.5 g/dL (3.2-5.5); CALCIUM 8.8 mg/dL (8.5-10.3); CREATININE 1.8 mg/dL (0.6-1.3); PHOSPHORUS 3.5 mg/dL (2.5-5.0); POTASSIUM 4.3 mmol/L (3.5-4.5)
== END 2023-09-26 11:28 | disposition home or self-care (01) ==
LOC: LAB 11:27
PROVIDERS: ATTEND Registered Nurse
DX: N18.30 Chronic kidney disease, stage 3 unspecified (principal)
CPT/HCPCS: 36415; 80069

== ENCOUNTER 2023-09-29 07:22 | Outpatient (CLI) | payer MEDICARE | END 2023-09-29 23:59 | disposition critical access hospital (66) | LOC: EMS 07:22 | DX: R06.00 Dyspnea, unspecified (principal); J44.9 Chronic obstructive pulmonary disease, unspecified | CPT/HCPCS: A0425; A0427 ==

== ENCOUNTER 2023-09-29 07:51 | Emergency (ER) | payer MEDICARE ==
[2023-09-29] MEDS ORDERED: IPRATROPIUM/ALBUTEROL 3 ML NEB INH STA (08:15)
[2023-09-29] MEDS ORDERED: FUROSEMIDE 40 MG/4 ML VIAL IVP STA ×2 (08:15→10:07)
[2023-09-29 08:34] LABS: BASOPHILS # (AUTO) 0.1 10^3/uL (0.0-0.1); BASOPHILS % (AUTO) 0.5 %; EOSINOPHILS # (AUTO) 0.2 10^3/uL (0.0-0.7); EOSINOPHILS % (AUTO) 1.7 %; HGB - HEMOGLOBIN 13.2 g/dL (14.0-18.0); LYMPHOCYTES # (AUTO) 2.9 10^3/uL (1.5-3.5); LYMPHOCYTES % (AUTO) 22.4 %; MEAN CORPUSCULAR HEMOGLOBIN 32.4 pg (27.0-31.0); MEAN CORPUSCULAR HGB CONC 30.7 g/dL (32.0-36.0); MEAN CORPUSCULAR VOLUME 105.4 fL (80.0-94.0); MEAN PLATELET VOLUME 10.1 fL (7.4-11.4); MONOCYTES # (AUTO) 0.6 10^3/uL (0.0-1.0); MONOCYTES % (AUTO) 4.5 %; NEUTROPHILS # (AUTO) 9.1 10^3/uL (1.5-6.6); NEUTROPHILS % (AUTO) 70.4 %; PLT - PLATELET COUNT 208 10^3/uL (130-450); RED BLOOD COUNT 4.08 10^6/uL (4.70-6.10); RED CELL DISTRIBUTION WIDTH 15.2 % (12.0-15.0); WHITE BLOOD COUNT 12.9 x10^3/uL (4.8-10.8)
--- NOTE | 2023-09-29 08:41 | XRAY Report ---
PROCEDURE: Chest 1V INDICATIONS: dyspnea TECHNIQUE: One view of the chest was acquired. COMPARISON: None. FINDINGS: Surgical changes and devices: Left cardiac AICD device with leads projecting over the heart. Valve p rosthesis. Lungs and pleura: Lung volumes are markedly low with diffuse bilateral patchy opacities. Bilateral p leural effusions. No pneumothorax. Mediastinum: Mediastinal contours appear normal. Cardiac heart borders are obscured by overlying opa cities. Bones and chest wall: No suspicious bony lesions. Overlying soft tissues appear unremarkable. IMPRESSION: Markedly low lung volumes with diffuse bilateral patchy opacities concerning for pneumonia. Small to moderate bilateral pleural effusions. Reviewed by: Alice Garcia MD on 09/29/2023 8:39 AM PST Approved by: Alice Garcia MD on 09/29/2023 8:39 AM PST Station ID: [id number]
[2023-09-29] MEDS ORDERED: cefTRIAXone 1 GM VIAL IVP STA (08:43)
[2023-09-29] MEDS ORDERED: AZITHROMYCIN INJ 500 MG in SODIUM CHLORIDE 0.9% 250 ML IV STA (08:44)
[2023-09-29 09:17] LABS: ALBUMIN 3.7 g/dL (3.2-5.5); BILIRUBIN,TOTAL 0.8 mg/dL (0.2-1.0); CALCIUM 8.9 mg/dL (8.5-10.3); MAGNESIUM 1.1 mg/dL (1.7-2.3); POTASSIUM 4.6 mmol/L (3.5-4.5); TOTAL PROTEIN 7.3 g/dL (6.4-8.9)
[2023-09-29 09:26] LABS: B. PARAPERTUSSIS- RESP PCR PAN NOT DETECTED; B. PERTUSSIS- RESP PCR PANEL NOT DETECTED; C. PNEUMONIAE- RESP PCR PANEL NOT DETECTED; CORONAVIRUS 229E-RESP PCR NOT DETECTED; CORONAVIRUS HKU1-RESP PCR NOT DETECTED; CORONAVIRUS NL63-RESP PCR NOT DETECTED; CORONAVIRUS OC43-RESP PCR NOT DETECTED; HUMAN METAPNEUMOVIRUS NOT DETECTED; INFLUENZA A- RESP PCR PANEL NOT DETECTED; INFLUENZA B - RESP PCR PANEL NOT DETECTED; M. PNEUMONIAE- RESP PCR PANEL NOT DETECTED; PARAINFLUENZA VIRUS 1 NOT DETECTED; PARAINFLUENZA VIRUS 2 NOT DETECTED; PARAINFLUENZA VIRUS 3 NOT DETECTED; PARAINFLUENZA VIRUS 4 NOT DETECTED; RHINOVIRUS/ENTEROVIRUS NOT DETECTED; RSV- RESP PCR PANEL NOT DETECTED; SARS-CoV-2 -RESP PCR PANEL NOT DETECTED
[2023-09-29] MEDS ORDERED: ALBUTEROL NEB 2.5 MG/3 ML INH STA (09:54)
[2023-09-29 09:58] LABS: VBG BASE EXCESS -7.2 mmol/L (-2 - +2); VBG HCO3 21.4 mmol/L (23-28); VBG PCO2 56.5 mmHg (41-51); VBG PO2 88.8 mmHg (25-47); VBG TOTAL CO2 23.2 mmol/L (24-29)
[2023-09-29 10:02] LABS: VBG PH 7.197 (7.31-7.41)
--- NOTE | 2023-09-29 12:01 | ED Physician Documentation ---
PD HPI DYSPNEA - Stated complaint Stated Complaint: SOA - Chief complaint Chief Complaint: Resp - History obtained from History obtained from: Patient, EMS (Medics noted pt to be having significant work of breathing, wheezing, and hypoxic into low 80s%. improved iminimally enroute with nebs, oxygen. Pt stats is DNI/DNR/limited interventions, with meds and fluids/IV access being okay.) - History of Present Illness Timing - onset: How many days ago (several days of worsening breathing and cough/wheezing. Much worse overnight and here with marked work of breathing/wheezing/hypoxia.) Timing - onset during: Rest Timing - duration: Days Timing - details: Gradual onset, Waxing and waning Inciting event(s): URI (reported cough and weakness, aches. Pt not able to give much description initially.), Exposure (ie smoke). No: Out of meds Associated symptoms: Cough (for several days worsening.), Wheezing, Bilateral edema (mild chronic) Recently seen: Not recently seen Review of Systems Unable to obtain: Other (initially not able to talk due to dyspnea/work of breathing. Subsequently could converse yenni, so asked a bit later.) Constitutional: reports: Myalgias, Fatigue Nose: reports: Congestion Cardiac: reports: Pedal edema (chronic). denies: Chest pain / pressure, Palpitations, Calf pain Respiratory: reports: Dyspnea, Cough, Wheezing GI: reports: Nausea. denies: Abdominal Pain, Vomiting, Diarrhea : reports: Dysuria Skin: denies: Rash Musculoskeletal: denies: Back pain Neurologic: reports: Generalized weakness, Difficulty speaking, Near syncope. denies: Focal weakness, Numbness Endocrine: denies: Polydypsia, Polyuria PD PAST MEDICAL HISTORY - Past Medical History Cardiovascular: Congestive heart failure, Hypertension, High cholesterol, Peripheral Vascular Disease, Atrial fibrillation, Arrhythmia, Valve disorder, Other Respiratory: COPD, Sleep apnea Neuro: None, Peripheral neuropathy Endocrine/Autoimmune: Type 2 diabetes GI: None : Renal insuffiency HEENT: Chronic hearing loss Psych: Depression Musculoskeletal: Osteoarthritis, Gout, Chronic back pain Derm: None - Past Surgical History Past Surgical History: Yes General: Other Ortho: Carpal Tunnel surgery Cardiovascular: Valve replacement, Pacemaker, Cardiac catheterization, Vascular surgery HEENT: Cataracts - Present Medications Home Medications: Ambulatory Orders Medication Instructions Recorded Confirmed Allopurinol [Zyloprim] 300 mg PO DAILY 03/09/16 09/13/23 Gabapentin 300 mg PO DAILY PM 03/09/16 09/13/23 Omeprazole 20 mg PO DAILY 10/28/18 09/13/23 Cholecalciferol (Vitamin D3) 800 unit PO DAILY 09/19/19 09/13/23 [Vitamin D3] Sotalol [Betapace] 80 mg PO DAILY 09/19/19 09/14/23 Atorvastatin Calcium 80 mg PO QPM 04/20/20 09/13/23 Acetaminophen 650 mg PO Q4HR PRN 05/10/20 09/13/23 Fluticasone [Flonase] 1 sprays TIFFANIE DAILY PRN 05/10/20 09/13/23 Melatonin 3 mg PO QPM 05/10/20 09/13/23 Furosemide 20 mg PO DAILY 10/15/20 09/13/23 Clopidogrel [Plavix] 75 mg PO DAILY 09/13/23 09/13/23 Doxycycline Hyclate [Vibramycin] 100 mg PO BID 09/13/23 09/13/23 - Allergies Allergies/Adverse Reactions: Allergies Allergy/AdvReac Type Severity Reaction Status Date / Time Sulfa (Sulfonamide Allergy Anaphylaxis Verified 09/13/23 09:26 Antibiotics) - Social History Does the pt smoke?: Yes Smoking Status: Current every day smoker Does the pt drink ETOH?: No Does the pt have substance abuse?: Yes - Immunizations Immunizations are current?: Yes - POLST Patient has POLST: No PD ED PE NORMAL - Vitals Vital signs reviewed: Yes - General General: Alert and oriented X 3, Well developed/nourished, Other (signifiacnt work of breathing with abdominal excursions and chest wall muscle use with simple ) - Neck Neck: Supple, no meningeal sign, No adenopathy, No bruit, Other (JVD noted at 60 degrees.) - Cardiac Cardiac: No murmur, No rub. No: RRR (irregular but adequate range of rhythm in non-tachycardic range.) - Respiratory Respiratory: Other (work of breathing enroue per medics. They gae duoneb and well as firs dose of ). No: Clear bilaterally - Abdomen Abdomen: Soft, Non tender (but is large nd olarge panus) - Derm Derm: Normal color, Warm and dry - Extremities Extremities: No tenderness to palpate, No calf tenderness / cord. No: No edema - Neuro Neuro: Alert and oriented X 3 Eye Opening: To Voice Motor: Obeys Commands Verbal: Oriented GCS Score: 14 Results - Vitals Vitals: Vital Signs - 24 hr 09/29/23 09/29/23 09/29/23 08:07 08:15 08:39 Temperature 36 C L Heart Rate 89 88 84 Respiratory 18 18 Rate Blood Pressure 136/84 H 151/67 H O2 Saturation 87 L 91 L If not protocol : Oxygen Flow, liters/minute 09/29/23 09/29/23 09/29/23 08:45 09:14 10:03 Temperature Heart Rate 82 88 85 Respiratory 28 H 21 Rate Blood Pressure 151/67 H 137/80 H O2 Saturation 91 L 100 If not protocol : Oxygen Flow, liters/minute 09/29/23 09/29/23 09/29/23 10:04 13:03 14:09 Temperature 36.2 C L 36.5 C Heart Rate 88 90 84 Respiratory 20 19 21 Rate Blood Pressure 169/101 H 151/88 H O2 Saturation 100 100 If not protocol : Oxygen Flow, liters/minute 09/29/23 09/29/23 09/29/23 14:54 15:09 17:00 Temperature 37.0 C Heart Rate 78 92 88 Respiratory 20 20 Rate Blood Pressure 127/65 119/76 O2 Saturation 99 95 If not protocol 3 3 3 : Oxygen Flow, liters/minute 09/29/23 09/29/23 09/29/23 17:15 17:17 18:50 Temperature Heart Rate 89 94 96 Respiratory 24 22 24 Rate Blood Pressure 119/76 120/67 O2 Saturation 98 96 If not protocol 3 3 : Oxygen Flow, liters/minute 09/29/23 19:30 Temperature 37.4 C Heart Rate 100 Respiratory 20 Rate Blood Pressure 112/72 O2 Saturation 97 If not protocol 3 : Oxygen Flow, liters/minute Oxygen O2 Source Room air - EKG (time done) 08:32 EKG releavant findings:: EKG personally interpreted by author of this note. Relevant findings are: Rate: Rate (enter#) (84) Rhythm: Atrial fibrillation Bradley: RAD Intervals: RBBB Ischemia: Non specific changes Compare to prior EKG: Unchanged from prior EKG (09/14/2023) - Labs Labs: Laboratory Tests 09/29/23 09/29/23 09/29/23 08:30 08:30 08:30 WBC 12.9 H RBC 4.08 L Hgb 13.2 L Hct 43.0 MCV 105.4 H MCH 32.4 H MCHC 30.7 L RDW 15.2 H Plt Count 208 MPV 10.1 Neut # (Auto) 9.1 H Lymph # (Auto) 2.9 Davison # (Auto) 0.6 Eos # (Auto) 0.2 Baso # (Auto) 0.1 Absolute Nucleated RBC 0.00 Nucleated RBC % 0.0 Bld Gas Analysis Time Sample Site ABG pH ABG pCO2 ABG pO2 ABG HCO3 ABG Total CO2 ABG O2 Saturation ABG Base Excess Willie Test VBG pH VBG pCO2 VBG pO2 VBG HCO3 VBG Total CO2 VBG O2 Saturation VBG Base Excess Respiration Rate O2 Delivery Device FiO2 EPAP IPAP Sodium 137 Potassium 4.6 H Chloride 104 Carbon Dioxide 22 Anion Gap 11.0 BUN 51 H Creatinine 2.0 H Estimated GFR (MDRD) 32 L Glucose 256 H Calcium 8.9 Magnesium 1.1 L Total Bilirubin 0.8 AST 19 ALT 14 Alkaline Phosphatase 104 Troponin I High Sens 609.0 H* B-Natriuretic Peptide 397 H Total Protein 7.3 Albumin 3.7 Globulin 3.6 Albumin/Globulin Ratio 1.0 Lipase 78 Nasal Adenovirus (PCR) Nasal B. parapertussis DNA (PCR) Nasal Coronavir 229E PCR Nasal Coronavir HKU1 PCR Nasal Coronavir NL63 PCR Nasal Coronavir OC43 PCR Nasal Enterovir/Rhinovir PCR Nasal Influenza B PCR Nasal Influenza A PCR Nasal Parainfluen 1 PCR Nasal Parainfluen 2 PCR Nasal Parainfluen 3 PCR Nasal Parainfluen 4 PCR Nasal RSV (PCR) Nasal B.pertussis DNA PCR Nasal C.pneumoniae (PCR) Tiffanie Human Metapneumo PCR Nasal M.pneumoniae (PCR) Nasal SARS-CoV-2 (PCR) 09/29/23 09/29/23 09/29/23 08:30 08:30 12:40 WBC RBC Hgb Hct MCV MCH MCHC RDW Plt Count MPV Neut # (Auto) Lymph # (Auto) Davison # (Auto) Eos # (Auto) Baso # (Auto) Absolute Nucleated RBC Nucleated RBC % Bld Gas Analysis Time 1245 Sample Site RIGHT RADIAL ABG pH 7.35 ABG pCO2 39 ABG pO2 104 H ABG HCO3 21.2 L ABG Total CO2 22.4 ABG O2 Saturation 97 ABG Base Excess -4.0 L Willie Test POSITIVE VBG pH 7.197 L* VBG pCO2 56.5 H VBG pO2 88.8 H VBG HCO3 21.4 L VBG Total CO2 23.2 L VBG O2 Saturation 95.0 H VBG Base Excess -7.2 L Respiration Rate 8 O2 Delivery Device BiPAP FiO2 40.00 EPAP 5 IPAP 12 Sodium Potassium Chloride Carbon Dioxide Anion Gap BUN Creatinine Estimated GFR (MDRD) Glucose Calcium Magnesium Total Bilirubin AST ALT Alkaline Phosphatase Troponin I High Sens B-Natriuretic Peptide Total Protein Albumin Globulin Albumin/Globulin Ratio Lipase Nasal Adenovirus (PCR) NOT DETECTED Nasal B. parapertussis DNA (PCR) NOT DETECTED Nasal Coronavir 229E PCR NOT DETECTED Nasal Coronavir HKU1 PCR NOT DETECTED Nasal Coronavir NL63 PCR NOT DETECTED Nasal Coronavir OC43 PCR NOT DETECTED Nasal Enterovir/Rhinovir PCR NOT DETECTED Nasal Influenza B PCR NOT DETECTED Nasal Influenza A PCR NOT DETECTED Nasal Parainfluen 1 PCR NOT DETECTED Nasal Parainfluen 2 PCR NOT DETECTED Nasal Parainfluen 3 PCR NOT DETECTED Nasal Parainfluen 4 PCR NOT DETECTED Nasal RSV (PCR) NOT DETECTED Nasal B.pertussis DNA PCR NOT DETECTED Nasal C.pneumoniae (PCR) NOT DETECTED Tiffanie Human Metapneumo PCR NOT DETECTED Nasal M.pneumoniae (PCR) NOT DETECTED Nasal SARS-CoV-2 (PCR) NOT DETECTED 09/29/23 14:02 WBC RBC Hgb Hct MCV MCH MCHC RDW Plt Count MPV Neut # (Auto) Lymph # (Auto) Davison # (Auto) Eos # (Auto) Baso # (Auto) Absolute Nucleated RBC Nucleated RBC % Bld Gas Analysis Time Sample Site ABG pH ABG pCO2 ABG pO2 ABG HCO3 ABG Total CO2 ABG O2 Saturation ABG Base Excess Willie Test VBG pH VBG pCO2 VBG pO2 VBG HCO3 VBG Total CO2 VBG O2 Saturation VBG Base Excess Respiration Rate O2 Delivery Device FiO2 EPAP IPAP Sodium Potassium Chloride Carbon Dioxide Anion Gap BUN Creatinine Estimated GFR (MDRD) Glucose Calcium Magnesium Total Bilirubin AST ALT Alkaline Phosphatase Troponin I High Sens 2047.4 H* B-Natriuretic Peptide Total Protein Albumin Globulin Albumin/Globulin Ratio Lipase Nasal Adenovirus (PCR) Nasal B. parapertussis DNA (PCR) Nasal Coronavir 229E PCR Nasal Coronavir HKU1 PCR Nasal Coronavir NL63 PCR Nasal Coronavir OC43 PCR Nasal Enterovir/Rhinovir PCR Nasal Influenza B PCR Nasal Influenza A PCR Nasal Parainfluen 1 PCR Nasal Parainfluen 2 PCR Nasal Parainfluen 3 PCR Nasal Parainfluen 4 PCR Nasal RSV (PCR) Nasal B.pertussis DNA PCR Nasal C.pneumoniae (PCR) Tiffanie Human Metapneumo PCR Nasal M.pneumoniae (PCR) Nasal SARS-CoV-2 (PCR) - Rads (name of study) chest xray Relevant Findings:: Prelim report reviewed, EMP independent interpretation of test (. small bilateral abrasions. ? atelectasisl) PD Medical Decision Making - ED course Complexity details: reviewed old records (he is having marked ork of breathing. However he is POLST form limited interventions.So no intubation. Ask about bibap and was okay. ), re-evaluated patient (multiple times, with gradual improvement on the current CPAP. ), considered differential (progressive dyspne over few days. Can give lasix for CHF possible, but also with diffuse wheezing and long vr), d/w patient, d/w PMD (has cecreased work of breathing. Concern for less itdal volume is worsened . Given solumedrol, neb, and ) - Critical Care Time(min): 95 Time Includes: Direct patient care, Reassess patient (multiple reassessments with changes of BiPAP, suplemental breaing, lyts), Medical consult, Family consult for tx dec Data interpretation: Labs, Pulse ox, ABG, CXR, Prior EKG Procedures excluded from critical care time: EKG Departure - Departure Disposition: 02 Transfer Acute Care Hosp Clinical Impression: Dyspnea, Respiratory failure, COPD (chronic obstructive pulmonary disease), CHF (congestive heart failure) Condition: Serious Forms: PCP List
[2023-09-29 12:47] LABS: ABG PH 7.35 (7.35-7.45)
[2023-09-29 12:48] LABS: ABG HCO3 21.2 mmol/L (22.0-26.0); ABG OXYGEN SATURATION 97 % (94-98); ABG PCO2 39 mmHg (34-45); ABG PO2 104 mmHg (80-100); ABG RESPIRATORY RATE 8 b/min; ABG TCO2 22.4 MMOL/L (21.0-29.0); ALLEN TEST POSITIVE
[2023-09-29] MEDS ORDERED: ENOXAPARIN 100 MG/ML SYRINGE SUBQ STA (15:32)
[2023-09-29] MEDS: ALBUTEROL NEB 2.5 MG/3 ML INH SCH ×2 (17:17→23:33)
[2023-09-29] MEDS ORDERED: INSULIN REGULAR HUMAN 300 UNIT/3 ML VIAL SUBQ SCH (18:00)
[2023-09-30] MEDS: ALBUTEROL NEB 2.5 MG/3 ML INH SCH ×4 (07:29→19:05)
--- NOTE | 2023-09-30 07:31 | ED Physician Documentation ---
ED Addendum - Addendum Addendum: 09/30/23 07:29 Patient 83-year-old male presenting to the emergency department initially with chief complaint shortness of air. Subsequently identified as having NSTEMI with uptrending troponin, pneumonia, likely/possible CHF exacerbation. Received signout from outgoing physician, please see their documentation for further detail. Patient evaluated independently at approximately 0730 hrs. Found to be resting comfortably and in no acute distress. Remains dependent on 3 L via nasal cannula.
[2023-09-30 07:42] LABS: BASOPHILS % (AUTO) 0.1 %; HCT - HEMATOCRIT 38.9 % (42.0-52.0); HGB - HEMOGLOBIN 12.2 g/dL (14.0-18.0); LYMPHOCYTES # (AUTO) 2.2 10^3/uL (1.5-3.5); LYMPHOCYTES % (AUTO) 17.2 %; MEAN CORPUSCULAR HEMOGLOBIN 32.5 pg (27.0-31.0); MEAN CORPUSCULAR HGB CONC 31.4 g/dL (32.0-36.0); MEAN CORPUSCULAR VOLUME 103.7 fL (80.0-94.0); MEAN PLATELET VOLUME 10.1 fL (7.4-11.4); MONOCYTES # (AUTO) 1.1 10^3/uL (0.0-1.0); MONOCYTES % (AUTO) 8.8 %; NEUTROPHILS # (AUTO) 9.5 10^3/uL (1.5-6.6); NEUTROPHILS % (AUTO) 73.5 %; PLT - PLATELET COUNT 180 10^3/uL (130-450); RED BLOOD COUNT 3.75 10^6/uL (4.70-6.10); RED CELL DISTRIBUTION WIDTH 15.1 % (12.0-15.0); WHITE BLOOD COUNT 12.9 x10^3/uL (4.8-10.8)
[2023-09-30 08:15] LABS: TROPONIN I HIGH SENSITIVITY 3246.3 ng/L (2.3-19.7)
[2023-09-30 08:24] LABS: ALBUMIN 3.5 g/dL (3.2-5.5); ALBUMIN/GLOBULIN RATIO 1.1 (1.0-2.2); BILIRUBIN,TOTAL 0.6 mg/dL (0.2-1.0); POTASSIUM 4.5 mmol/L (3.5-4.5); TOTAL PROTEIN 6.7 g/dL (6.4-8.9)
[2023-09-30] MEDS: HEPARIN 25000UNITS/500ML (D5W) 25,000 UNIT/500 ML BAG IV SCH (09:15)
[2023-09-30] MEDS ORDERED: cefTRIAXone 1 GM VIAL IVP STA (19:26)
[2023-09-30] MEDS ORDERED: AZITHROMYCIN INJ 500 MG in SODIUM CHLORIDE 0.9% 250 ML IV STA (19:26)
--- NOTE | 2023-09-30 19:26 | ED Physician Documentation ---
ED Addendum - Addendum Addendum: 09/30/23 19:26 I am told at this time that the gentleman who had been accepted to [facility], they recommend we call around as they have 40 boarding ahead of him. I have asked the health community health promoter to call around including Wm GALLOWAY.
[2023-09-30] MEDS ORDERED: ACETAMINOPHEN 500 MG TABLET PO PRN (19:27)
[2023-09-30] MEDS ORDERED: ONDANSETRON 4 MG/2 ML VIAL IVP PRN (19:27)
[2023-09-30] MEDS: METOPROLOL TARTRATE 25 MG TABLET PO SCH (20:59)
[2023-09-30] MEDS ORDERED: METOPROLOL TARTRATE 25 MG TABLET PO SCH (21:00)
[2023-09-30] MEDS ORDERED: ATORVASTATIN 40 MG TABLET PO SCH (21:00)
[2023-10-01] MEDS: HEPARIN 25000UNITS/500ML (D5W) 25,000 UNIT/500 ML BAG IV SCH (02:23)
[2023-10-01 05:34] LABS: BASOPHILS % (AUTO) 0.3 %; EOSINOPHILS # (AUTO) 0.1 10^3/uL (0.0-0.7); EOSINOPHILS % (AUTO) 0.8 %; HCT - HEMATOCRIT 33.9 % (42.0-52.0); LYMPHOCYTES # (AUTO) 3.3 10^3/uL (1.5-3.5); LYMPHOCYTES % (AUTO) 32.5 %; MEAN CORPUSCULAR HEMOGLOBIN 32.8 pg (27.0-31.0); MEAN CORPUSCULAR HGB CONC 32.4 g/dL (32.0-36.0); MEAN CORPUSCULAR VOLUME 101.2 fL (80.0-94.0); MEAN PLATELET VOLUME 10.1 fL (7.4-11.4); MONOCYTES # (AUTO) 1.1 10^3/uL (0.0-1.0); MONOCYTES % (AUTO) 10.7 %; NEUTROPHILS # (AUTO) 5.6 10^3/uL (1.5-6.6); NEUTROPHILS % (AUTO) 55.4 %; PLT - PLATELET COUNT 157 10^3/uL (130-450); RED BLOOD COUNT 3.35 10^6/uL (4.70-6.10); RED CELL DISTRIBUTION WIDTH 15.2 % (12.0-15.0); WHITE BLOOD COUNT 10.2 x10^3/uL (4.8-10.8)
[2023-10-01 05:51] LABS: CALCIUM 8.6 mg/dL (8.5-10.3); CREATININE 1.7 mg/dL (0.6-1.3); POTASSIUM 4.3 mmol/L (3.5-4.5)
[2023-10-01] MEDS ORDERED: NITROGLYCERIN SL 0.4 MG TABLET SL STA ×2 (05:57→10:53)
[2023-10-01] MEDS ORDERED: ALBUTEROL NEB 2.5 MG/3 ML INH STA (05:57)
[2023-10-01] MEDS ORDERED: FUROSEMIDE 40 MG/4 ML VIAL IVP STA (05:59)
[2023-10-01] MEDS ORDERED: MAGNESIUM SULFATE 2 GRAM 2 GM/50 ML BAG IV ONE (06:01)
--- NOTE | 2023-10-01 06:10 | ED Physician Documentation ---
ED Addendum - Addendum Addendum: 10/01/23 06:07 Patient has been resting comfortably through the evening and night. He had not apparently slept much. At just about 6 AM, he notified the nurse that he was having some chest pressure and pain and feeling some shortness of breath. Oxygenation level is good. His heart rate is a sinus rhythm in the normal range. Blood pressures approximately 117 systolic. Listening to him he does have some expiratory wheezes. He had received a nebulizer treatment several hours ago and are scheduled 4 times a day. Next 1 not till 8 AM. At this point we will repeat an EKG and chest x-ray. Lung sounds had some wheezing without crackles per se but his main process had been CHF likely initially. Will give him a nebulizer treatment extra as well as some nitroglycerin and Lasix. He had not had any more Lasix ordered from the initial doses the morning of the sixth. His EKG was just presented and shows a left bundle branch block with repolarization changes. It looks similar to his prior EKGs without acute obvious change. We shall see his response to the above treatments. He had just had a troponin drawn about 45 minutes ago and it is downtrending and is now at 1100. I will order 1 for 2 hours from now to see if it trends upward again with this current symptoms. I also see his magnesium had been low yesterday. I will give a mag rider and also recheck electrolytes kidney function and magnesium along with a troponin at 7 AM.
[2023-10-01] MEDS ORDERED: PANTOPRAZOLE 40 MG TABLET PO SCH (07:00)
[2023-10-01] MEDS: ALBUTEROL NEB 2.5 MG/3 ML INH SCH ×3 (07:23→15:25)
[2023-10-01 07:37] LABS: CALCIUM 8.8 mg/dL (8.5-10.3); CREATININE 1.7 mg/dL (0.6-1.3); MAGNESIUM 1.8 mg/dL (1.7-2.3); POTASSIUM 4.2 mmol/L (3.5-4.5)
--- NOTE | 2023-10-01 08:13 | XRAY Report ---
PROCEDURE: Chest 1V INDICATIONS: chest pain TECHNIQUE: One view of the chest was acquired. COMPARISON: Chest x-ray 09/29/2019 FINDINGS: Surgical changes and devices: Pacemaker. Lungs and pleura: Mild appearance of increased vascularity. Minimal bilateral effusions. Previous ar eas of bilateral pulmonary opacities have markedly improved. Mediastinum: Mediastinal contours appear normal. Heart size is enlarged. Bones and chest wall: No suspicious bony lesions. Overlying soft tissues appear unremarkable. IMPRESSION: Improved appearance with mild residual of previous bilateral pulmonary opacities. Persistent appearance of increased vascularity and minimal effusion suggestive of edema. Reviewed by: Esther Parker MD on 10/01/2023 8:11 AM PST Approved by: Esther Parker MD on 10/01/2023 8:11 AM PST Station ID: [id number]
--- NOTE | 2023-10-01 08:15 | ED Physician Documentation ---
ED Addendum - Addendum Addendum: 10/01/23 08:14 Patient received a signout from outgoing physician, please see their do cumentation for further detail. A.m. troponin is reviewed. It appears to be downtrending. Patient evaluated independently at bedside. Is no longer complaining of the previous chest discomfort he had experienced overnight. Continuing to monitor with plan for transfer once a facility becomes available. 10/01/23 11:35 Patient endorses for some increase in chest pain 3 out of 10. Repeat EKG de monstrates a stable left bundle branch. There is no concordant ST segment elevation, concord disease, depression or excessive discordance in any lead. His EKG is effectively unchanged from previous. I did order for some sublingual nitroglycerin which did help. He was however having some mild persistent pain and so additionally ordered a dose of nitroglycerin paste. 10/01/23 17:31 Patient transferred from our facility to [place] for further evaluation and treatment.
[2023-10-01] MEDS ORDERED: ASPIRIN CHEW 81 MG TABLET PO SCH (09:00)
[2023-10-01] MEDS: METOPROLOL TARTRATE 25 MG TABLET PO SCH (10:13)
[2023-10-01] MEDS ORDERED: NITROGLYCERIN SL 0.4 MG TABLET SL ONE (10:56)
[2023-10-01] MEDS ORDERED: NITROGLYCERIN 2% PASTE TOP STA (11:18)
--- NOTE | 2023-10-01 15:55 | ED Physician Documentation ---
ED Addendum - Addendum Addendum: 10/01/23 15:55 He was excepted by Dr. Stock to the hospitalist service at [facility] at this time. Cobras are completed and he is stable for transport. Disposition: Transferred to [facility] for specialty care Condition: Stable
[2023-10-01 16:34] VITALS: O2SAT 96
[2023-10-01 17:12] VITALS: BP 115/68
== END 2023-10-01 17:05 | disposition short-term general hospital (02) ==
LOC: EDUNIT# → ED 07:51
DX: J44.9 Chronic obstructive pulmonary disease, unspecified (principal); J96.90 Respiratory failure, unspecified, unspecified whether with hypoxia or hypercapnia; Z66 Do not resuscitate; I48.91 Unspecified atrial fibrillation; Z95.0 Presence of cardiac pacemaker; E11.9 Type 2 diabetes mellitus without complications; F17.200 Nicotine dependence, unspecified, uncomplicated; I11.0 Hypertensive heart disease with heart failure; I50.9 Heart failure, unspecified
CPT/HCPCS: 36415; 36600; 71045; 80048; 80053; 82803; 83690; 83735; 83880; 84484; 85025; 85730; 87040; 87633; 93005; 94640; 94660; 96365; 96372; 96375; 96376; 99285; 99291; 99292; A9270; J1650

== ENCOUNTER 2023-10-01 17:05 | Outpatient (CLI) | payer MEDICARE | END 2023-10-01 23:59 | disposition short-term general hospital (02) | LOC: EMS 17:05 | PROVIDERS: ATTEND Emergency Medicine | DX: I21.4 Non-ST elevation (NSTEMI) myocardial infarction (principal) | CPT/HCPCS: A0425; A0426 ==